=== PATIENT | female | born 1935 | race Caucasian/White ===

== ENCOUNTER 2016-07-20 05:56 | Day surgery (SDC) | payer MEDICARE, BC ==
[~2016-07-20] VITALS: Ht 152.4 cm; Wt 77.0 kg
[2016-07-20] VITALS (10 sets, daily range): BP systolic 112–128; BP diastolic 60–76; PULSE 87–111; RESP 16–20; TEMP 97.6–98.2; O2SAT 92–95
[~2016-07-20 05:56] MED LIST: ALBU6.7H INH; AZIT250T43 PO; CARD240C6 PO; CEFU1TAB43 PO; CYMB60CA PO; LISI-357 PO; METO25 PO; OMPR20CCR PO; OXYB5TAB33 PO; PRAV10 PO; Z.0.OXYGEN INH; Z.0.OXYGENDME NC
[2016-07-20] MEDS ORDERED: SODIUM CHLORID 0.9% 500 ML IV SCH (06:15)
[2016-07-20] MEDS ORDERED: LORazepam 1 MG TAB SL SCH (06:15)
[2016-07-20] MEDS ORDERED: LACTATED RINGER'S 1000 ML IV SCH (06:15)
[2016-07-20] MEDS ORDERED: SODIUM CHLORID 0.9% 500 ML INJ 500 ML IV SCH (06:15)
[2016-07-20] MEDS ORDERED: LEVOFLOXACIN 500 MG PREMIX INJ 100 ML IV SCH (06:30)
[2016-07-20] MEDS ORDERED: LYRI50CA PO (06:45)
[2016-07-20] MEDS ORDERED: CYCL5TAB PO (06:45)
[2016-07-20] MEDS ORDERED: DILT-48 PO (06:45)
[2016-07-20] MEDS ORDERED: DULO1CAP3 PO (06:45)
[2016-07-20] MEDS ORDERED: MELO7.5T4 PO (06:45)
[2016-07-20] MEDS ORDERED: OXYB5TAB PO (06:45)
[2016-07-20] MEDS ORDERED: ISOS30TA3 PO (06:45)
[2016-07-20] MEDS ORDERED: PRAV10TA PO (06:45)
[2016-07-20] MEDS ORDERED: CART240C PO (06:45)
[2016-07-20] MEDS ORDERED: APIX5TAB PO (06:45)
[2016-07-20] MEDS ORDERED: LISI-519 PO (06:45)
[2016-07-20 06:57] LABS: AUTOMATED NEUTROPHIL # 3.3 TH/MM3 (1.8-7.7); BASOPHIL # 0.1 TH/MM3 (0-0.2); BASOPHIL % 2.7 % (0.0-2.0); EOSINOPHIL # 0.3 TH/MM3 (0-0.4); EOSINOPHIL % 6.4 % (0.0-4.0); HEMATOCRIT 39.6 % (35.0-46.0); HEMO FLAGS DIFF FINAL; LYMPH % 20.9 % (9.0-44.0); LYMPHOCYTE # 1.1 TH/MM3 (1.0-4.8); MEAN CELL VOLUME 86.5 FL (80.0-100.0); MEAN CORPUSCULAR HEMOGLOBIN 29.4 PG (27.0-34.0); MONO % 9.6 % (0.0-8.0); NEUT % 60.4 % (16.0-70.0); PLATELET COUNT 239 TH/MM3 (150-450); RED BLOOD COUNT 4.58 MIL/MM3 (4.00-5.30); RED CELL DISTRIBUTION WIDTH 14.1 % (11.6-17.2); WHITE BLOOD COUNT 5.4 TH/MM3 (4.0-11.0)
[2016-07-20 07:15] LABS: APTT (PATIENT) 28.6 SEC (24.3-30.1); PROTHROMBIN TIME - PATIENT 11.2 SEC (9.8-11.6)
[2016-07-20] MEDS ORDERED: HEPARIN-D5W INJ 250 ML ONE (07:21)
[2016-07-20] MEDS ORDERED: ISOPROTERENOL HCL 1 MG/5 ML AMP ONE (07:21)
[2016-07-20] MEDS ORDERED: SODIUM CHLOR 0.9% 250 ML INJ 250 ML ONE (07:22)
[2016-07-20] MEDS ORDERED: HEPARIN SODIUM - IV 10,000 UNITS/10 ML VIAL ONE ×2 (07:22)
[2016-07-20 07:28] LABS: BICARBONATE 23.4 MEQ/L (21.0-32.0); POTASSIUM 3.5 MEQ/L (3.5-5.1)
[2016-07-20] MEDS ORDERED: fentaNYL CITRATE 250 MCG/5 ML AMP ONE (07:42)
[2016-07-20] MEDS ORDERED: FUROSEMIDE 40 MG/4 ML VIAL ONE (07:47)
[2016-07-20] MEDS ORDERED: PROTAMINE SULFATE 50 MG/5 ML VIAL ONE ×2 (07:48→11:16)
[2016-07-20] MEDS ORDERED: NEOSTIGMINE 3 MG/3 ML SYR IV ONE (11:00)
[2016-07-20] MEDS ORDERED: ONDANSETRON HCL 4 MG/2 ML VIAL IV PUSH ONE (11:00)
[2016-07-20] MEDS ORDERED: PROPOFOL 200 MG/20 ML AMP IV ONE (11:00)
[2016-07-20] MEDS ORDERED: BACITRACIN OINT 0.9 GM PKT TOP ONE (11:30)
[2016-07-20] MEDS ORDERED: SODIUM CHLOR 0.9% 250 ML INJ 250 ML IV PRN (11:30)
[2016-07-20] MEDS ORDERED: LIDOCAINE HCL 1% 50 ML VIAL INFIL PRN (11:30)
[2016-07-20] MEDS ORDERED: ONDANSETRON HCL 4 MG/2 ML VIAL IV PRN (11:30)
[2016-07-20] MEDS ORDERED: DO NOT ADM ANY ANTICOAGULANT DRUGS XX PRN (11:30)
[2016-07-20] MEDS ORDERED: oxyCODONE/ACETAMINOPHEN 5 MG/325 MG TAB PO PRN ×2 (11:30)
[2016-07-20] MEDS ORDERED: LORazepam 2 MG/ML VIAL IV PRN (11:30)
[2016-07-20] MEDS ORDERED: LISINOPRIL 5 MG TAB PO SCH (11:30)
[2016-07-20] MEDS ORDERED: ATROPINE SULFATE 1 MG/ML VIAL IV PRN (11:30)
[2016-07-20] MEDS ORDERED: DULoxetine HCl DR 60 MG CAP PO SCH (11:30)
[2016-07-20] MEDS ORDERED: METOCLOPRAMIDE HCL 10 MG/2 ML VIAL IV PRN (11:30)
--- NOTE | 2016-07-20 11:39 | ETE ---
Study Study Date:07/20/2016 STUDY CONCLUSIONS SUMMARY - Left ventricle: The cavity size was normal. Wall thickness was normal. Systolic function was normal. The estimated ejection fraction was in the range of 55% to 60%. Wall motion was normal; there were no regional wall motion abnormalities. - Aortic valve: No evidence of vegetation. - Mitral valve: No evidence of vegetation. - Left atrium: No evidence of thrombus in the atrial cavity or appendage. No evidence of thrombus in the atrial cavity or appendage. - Right atrium: No evidence of thrombus in the atrial cavity or appendage. - Atrial septum: No defect or patent foramen ovale was identified. Echo contrast study showed no yoduf-hu-[id number] atrial level shunt, at baseline or with provocation. - Tricuspid valve: No evidence of vegetation. Mild-moderate regurgitation. - Pulmonic valve: No evidence of vegetation. If LV function is below 40, please consider prescribing an ACEI or ARB or document rationale for non-use. PROCEDURE DATA Consent: The risks, benefits, and alternatives to the procedure were explained to the patient and informed consent was obtained. Procedure: Initial setup. The patient was brought to the laboratory in the fasting state. Intravenous access was obtained. Surface ECG leads and pulse oximetric signals were monitored. Sedation. Conscious sedation was administered by anesthesiology. Transesophageal echocardiography. Topical anesthesia was obtained using viscous lidocaine. A transesophageal probe was inserted by the attending demolition crane operator. Image quality was good. Study completion: All IVs inserted during the procedure were removed. The patient tolerated the procedure well. There were no complications. Transesophageal echocardiography. 2D, complete spectral Doppler, and color Doppler. CARDIAC ANATOMY LEFT VENTRICLE: The cavity size was normal. Wall thickness was normal. Systolic function was normal. The estimated ejection fraction was in the range of 55% to 60%. Wall motion was normal; there were no regional wall motion abnormalities. AORTIC VALVE: Trileaflet; mildly thickened, mildly calcified leaflets. Cusp separation was normal. No evidence of vegetation. Doppler: No significant regurgitation. Aorta: - There was no atheroma. There was no evidence for dissection. Aortic root: The aortic root was not dilated. Ascending aorta: The ascending aorta was normal in size. Aortic arch: The aortic arch was normal in size. Descending aorta: The descending aorta was normal in size. MITRAL VALVE: Structurally normal valve. Leaflet separation was normal. No evidence of vegetation. Doppler: Trace regurgitation. LEFT ATRIUM: The atrium was normal in size. No evidence of thrombus in the atrial cavity or appendage. No evidence of thrombus in the atrial cavity or appendage. The appendage was morphologically a left appendage, multilobulated, and of normal size. Emptying velocity was normal. ATRIAL SEPTUM: No defect or patent foramen ovale was identified. Echo contrast study showed no tfajy-ic-pfat atrial level shunt, at baseline or with provocation. RIGHT VENTRICLE: The cavity size was normal. Wall thickness was normal. Systolic function was normal. PULMONIC VALVE: Structurally normal valve. No evidence of vegetation. TRICUSPID VALVE: Structurally normal valve. Leaflet separation was normal. No evidence of vegetation. Doppler: Mild-moderate regurgitation. PULMONARY ARTERY: The main pulmonary artery was normal-sized. RIGHT ATRIUM: The atrium was normal in size. No evidence of thrombus in the atrial cavity or appendage. The appendage was morphologically a right appendage. PERICARDIUM: There was no pericardial effusion. Prepared and signed by Purvi Rivero [id number]
[2016-07-20] MEDS ORDERED: PILL SPLITTER OTHER PRN (12:00)
--- NOTE | 2016-07-20 12:04 | MA ---
cc: FLORECITA DIANA HANSCY M.D. DATE: 07/20/2016 PROCEDURE Electrophysiology study, CS cannulation, 3-D mapping, transseptal approach, right and left heart catheterization, intracardiac echo, radiofrequency ablation of atrial fibrillation, pulmonary vein isolation, posterior ablation, roof line creation, floor line creation, mitral valve isolation, mitral line creation, anterior wall ablation and cardioversion. That was a very complex case. INDICATION Mrs. Chastity Valencia is an 81-year-old female with atrial fibrillation, very difficult to control, symptomatic, referred for electrophysiology study and ablation. She is on anticoagulation. The risks, the nature and the benefit of the procedure were clearly stated to her. The risks include esophageal perforation, aspiration, need for endotracheal intubation and even . The patient understood and agreed to proceed. DETAILS OF PROCEDURE As written informed consent was obtained prior to transesophageal echo, the patient was kept on the table where she was prepped and draped in the usual sterile fashion. Conscious sedation was initiated and maintained throughout the procedure by the anesthesiologist. Once sedation was verified, the right and left inguinal area was anesthetized with 2% Xylocaine. Using modified Seldinger technique, the left femoral vein was cannulated on three occasions and three guidewires were advanced. Over the wires one 6, one 7, and one 10 Hemaquet was advanced. I did attempt to cannulate the left femoral artery, but the pulse in the area was poor. I decided to cannulate the right femoral artery. Over the wire the 4-Stateless Hemaquet was advanced. Then the right femoral vein was cannulated on one occasion and one guidewire was advanced. Over the wire an 8-Stateless Hemaquet was advanced. Then under fluoroscopic guidance through the 6 and 7 Stateless Hemaquets, two 5-Stateless Rossana curved quadripolar electrophysiology catheters were advanced and positioned on the His, upper right atrium, coronary sinus and right ventricular apex. Basic interval was measured. The patient was in atrial fibrillation. Through the 10-Stateless Hemaquet, a Cordis-Hare AcuNav intracardiac echo catheter was advanced and placed at the right atrium. Multiple views were obtained. There was no pericardial effusion. There was left atrial enlargement. Atrial septum was seen. Pulmonary vein was visualized. Aortic root was seen. Then the 8-Stateless Hemaquet in the right femoral vein was exchanged for an Agilis transseptal sheath that was placed all the way to the superior vena cava. Through the sheath a [place] needle was advanced. Then the sheath, the needle and the dilator were pulled back progressively until the fossa was engaged. Once engaged, the needle was advanced. RF was delivered for two seconds. I was able to cross into the left atrium. Once the needle crossed, the dilator was advanced. Once the dilator crossed, the sheath was advanced. Once the sheath crossed the dilator and the needle were removed. I did flood the system. Fluid movement was seen in the left atrium that indicated the sheath was in good position. The patient already received 8000 units of heparin. The goal was to keep an ACT around 350 during the ablation. Then through the sheath a [place]. Mario 20-post circumferential catheter was advanced. Using the [employer] Mapping System a three-dimensional configuration of the left atrium was obtained. Lazcano were taken at the left superior and inferior vein, right superior and inferior vein, mitral valve and appendage. Then the circumferential catheter was replaced by a St. Mario TactiCath 3.5 mm irrigated-tip mapping and radiofrequency ablation catheter. An esophageal probe was placed for temperature monitoring during ablation. Any increase above 0.5 degrees Celsius from baseline I moved to a different part of the atrium. First I did isolate the left superior and inferior vein. I made a soboba around both veins. Part of the posterior was ablated. Then the mitral valve was ablated. Then the floor line was created. Then I did ablate around the left atrial appendage. Tachyarrhythmia was getting better organized. Then the roof line was created. Then I did isolate both the right and left superior. Then I did re-map the atrium. There was no significant signal except in the posterior wall. Some part of the posterior was ablated. Then I did proceed with cardioversion. 200 sync biphasic joules were delivered that converted the patient into sinus rhythm. At that point, I did pace from the vein. There was no conduction to the atrium. Pacing from the coronary sinus showed no conduction to the veins. Then Isuprel infusion was initiated at 10 mcg. No tachyarrhythmia was induced. At that point the procedure was complete. All catheters were removed. The intracardiac echo showed no pericardial effusion. Basic interval was measured. The transseptal sheath was replaced by a 9-Stateless Hemaquet. The patient is going to be transferred to the recovery room. That was a very complex case. No incident report. The patient tolerated the procedure. Blood loss minimal. FINDINGS 1. Electrocardiogram: At baseline the patient was in atrial fibrillation. Post procedure the patient was in sinus rhythm. 2. Basic interval: Base cycle length was around 780. Post ablation it was close to 1100. AH was at 90 and HV was around 52 milliseconds. 3. Tachyarrhythmia: Atrial fibrillation was mapped and ablated. Atrial tachycardia was ablated. Ablation was successful. CONCLUSIONS Successful electrophysiology study, mapping and radiofrequency ablation of atrial fibrillation, pulmonary vein isolation, posterior ablation, mitral line creation, mitral valve isolation, roof line creation, floor line creation, left atrial tachycardia ablation and cardioversion. COMMENT/RECOMMENDATION The patient is going to be transferred to the recovery room. She will be observed. Medication will be modified. When stable the patient is going to be discharged home. There was a relatively poor signal in the left atrium. Purvi Rivero MD HS/HETAL /11:27 AM 11:43 AM
[2016-07-20] MEDS: AMIODARONE 200 MG TAB PO SCH ×2 (13:00→21:51)
[2016-07-20] MEDS ORDERED: AMIODARONE INJ 300 MG in DEXTROSE 5% IN WATER 100ML INJ 94 ML IV ONE ×2 (13:30)
[2016-07-20] MEDS ORDERED: AMIODARONE 150 MG/D5W 97 ML BOLUS 60 MINUTES IV ONE ×2 (13:30)
[2016-07-20] MEDS: AMIODARONE 450 MG/D5W (EXCEL) 241 ML IV SCH ×4 (15:02→23:48)
[2016-07-20] MEDS: CYCLOBENZAPRINE HCL 10 MG TAB PO SCH (18:00)
[2016-07-20] MEDS ORDERED: PRAVASTATIN SOD 10 MG TAB PO SCH (21:00)
[2016-07-20] MEDS: APIXABAN 5 MG TABLET PO SCH (21:51)
--- NOTE | 2016-07-20 23:31 | EKG ---
Date Performed: 07/20/2016 Time Performed: 11:44:50 PTAGE: 81 years EKG: Sinus rhythm WITH FIRST DEGREE AV BLOCK WITH FREQUENT SUPRAVENTRICULAR PREMATURE COMPLEXES ABNORMAL ECG PREVIOUS TRACING : 07/20/2016 07.17 DOCTOR: Purvi Rivero Interpretating Date/Time 07/20/2016 23:31:12
--- NOTE | 2016-07-20 23:38 | EKG ---
Date Performed: 07/20/2016 Time Performed: 07:17:58 PTAGE: 81 years EKG: Atrial fibrillation Leftward axis Anterolateral ST-T changes may be due to myocardial ische christin Abnormal ECG PREVIOUS TRACING : 06/23/2014 21.51 DOCTOR: Purvi Rivero Interpretating Date/Time 07/20/2016 23:37:05
[2016-07-21] VITALS (13 sets, daily range): BP systolic 120–158; BP diastolic 62–79; PULSE 94–111; RESP 16–18; TEMP 97.4–97.9; O2SAT 92–96
[2016-07-21] MEDS: AMIODARONE 200 MG TAB PO SCH (08:01)
[2016-07-21] MEDS: APIXABAN 5 MG TABLET PO SCH (08:02)
[2016-07-21] MEDS: CYCLOBENZAPRINE HCL 10 MG TAB PO SCH (08:03)
[2016-07-21 08:37] LABS: APTT (PATIENT) 27.8 SEC (24.3-30.1); INTERNATIONAL NORMALIZED RATIO 1.1 RATIO; PROTHROMBIN TIME - PATIENT 11.7 SEC (9.8-11.6)
[2016-07-21] MEDS ORDERED: AMIO200T PO ×2 (08:55)
[2016-07-21] MEDS ORDERED: MELOXICAM 7.5 MG TAB PO SCH (09:00)
[2016-07-21] MEDS ORDERED: ISOSORBIDE MONONITRATE 30 MG TAB PO SCH (09:00)
[2016-07-21] MEDS ORDERED: PREGABALIN 25 MG CAP PO SCH (09:00)
[2016-07-21] MEDS ORDERED: TOLTERODINE TARTRATE 2 MG CAP LA PO SCH (09:00)
--- NOTE | 2016-07-21 09:02 | PD.CARD.PN ---
Subjective Subjective Remarks Feels good. Objective Medications Current Medications Medications (Trade) Dose Ordered Sig/Angeli Route Start Time Stop Time Status Last Admin (NS 500 ml Inj) 500 ml @ 30 mls/hr [id number] IV 07/20/16 06:15 (Percocet 5-325 Mg) 1 tab Q4H PRN PO 07/20/16 11:30 (Percocet 5-325 Mg) 2 tab Q4H PRN PO 07/20/16 11:30 (Ativan Inj) 0.5 mg UNSCH PRN IV 07/20/16 11:30 07/21/16 11:29 Atropine Sulfate 0.5 mg 0.5 mg UNSCH PRN IV 07/20/16 11:30 (NS 250 ml Inj) 250 ml @ 500 mls/hr ONCE PRN IV 07/20/16 11:30 07/21/16 11:29 (Reglan Inj) 10 mg Q4H PRN IV 07/20/16 11:30 (Zofran Inj) 4 mg Q4H PRN IV 07/20/16 11:30 (Xylocaine 1% Inj (50 ml)) 10 ml UNSCH PRN INFIL 07/20/16 11:30 07/21/16 11:29 (Eliquis) 5 mg BID PO 07/20/16 21:00 07/21/16 08:02 (Flexeril) 5 mg TID PO 07/20/16 13:00 07/21/16 08:03 (Cymbalta Dr) 60 mg DAILY PO 07/20/16 11:30 07/21/16 08:03 (Imdur) 30 mg DAILY PO 07/21/16 09:00 07/21/16 08:02 (Prinivil) 5 mg DAILY PO 07/20/16 11:30 07/21/16 08:03 (Mobic) 7.5 mg DAILY PO 07/21/16 09:00 07/21/16 08:02 (Pravachol) 10 mg HS PO 07/20/16 21:00 07/20/16 21:51 (Lyrica) 50 mg DAILY PO 07/21/16 09:00 07/21/16 08:02 (Detrol La) 2 mg DAILY PO 07/21/16 09:00 07/21/16 08:01 (Cordarone) 400 mg BID PO 07/20/16 11:30 07/24/16 21:01 07/21/16 08:01 Miscellaneous Information ALL NURSING DEPARTME... UNSCH PRN XX 07/20/16 11:30 07/21/16 11:29 (Cordarone) 200 mg DAILY PO 07/25/16 09:00 Miscellaneous 1 ea 1 ea UNSCH PRN OTHER 07/20/16 12:00 (Cordarone Inj/ D5W ([place]) Inj) 250 ml @ 0 mls/hr CONTINUOUS IV 07/20/16 13:30 07/20/16 23:48 Vital Signs / I&O Vital Signs Date Time Temp Pulse Resp B/P Pulse Ox O2 Delivery O2 Flow Rate FiO2 07/21/16 08:00 97.4 107 16 156/79 94 07/21/16 07:34 Room Air 07/21/16 06:00 103 07/21/16 05:00 95 07/21/16 04:00 Room Air 07/21/16 04:00 97.8 106 18 158/78 96 07/21/16 04:00 106 07/21/16 03:00 105 07/21/16 02:00 106 07/21/16 01:00 111 07/21/16 00:00 97.9 98 18 120/62 92 07/21/16 00:00 94 07/21/16 00:00 Room Air 07/20/16 23:00 105 07/20/16 22:00 108 07/20/16 21:00 109 07/20/16 20:00 110 07/20/16 20:00 Room Air 07/20/16 20:00 98.1 110 20 116/76 92 07/20/16 19:00 108 07/20/16 18:00 107 07/20/16 17:00 100 07/20/16 16:00 100 07/20/16 16:00 98.2 111 16 112/60 93 07/20/16 15:48 106 07/20/16 15:25 97.8 105 16 102/65 94 Room Air 07/20/16 15:00 107 16 101/67 93 Room Air 07/20/16 14:45 108 15 108/65 92 Room Air 07/20/16 14:35 97.8 110 15 110/66 98 Nasal Cannula 2 07/20/16 14:15 111 14 108/67 96 07/20/16 14:00 116 14 115/69 97 07/20/16 13:45 118 16 105/71 95 07/20/16 13:30 116 16 110/70 96 07/20/16 13:15 117 20 119/68 96 07/20/16 13:00 117 16 120/67 95 07/20/16 12:45 119 13 120/69 96 07/20/16 12:30 85 17 119/62 95 07/20/16 12:15 84 17 113/67 95 Nasal Cannula 2 07/20/16 12:00 87 14 121/65 95 07/20/16 11:45 69 12 119/69 95 07/20/16 11:30 109 12 120/62 94 07/20/16 11:28 97.9 111 12 109/48 94 Nasal Cannula 2 I/O 07/20/16 07/20/16 07/20/16 07/21/16 07/21/16 07/21/16 07:00 15:00 23:00 07:00 15:00 23:00 Intake Total 900 ml 50 ml 586 ml Output Total 1650 ml 400 ml Balance -750 ml -350 ml 586 ml Intake Oral 250 ml IV Total 50 ml 336 ml Other 900 ml Output Urine Total 1250 ml 400 ml Other 400 ml # Voids 2 Physical Exam GENERAL: Well-nourished, well-developed patient. SKIN: Warm and dry. Groin sites soft, benign HEAD: Normocephalic. EYES: No scleral icterus. No injection or drainage. NECK: Supple, trachea midline. No JVD or lymphadenopathy. CARDIOVASCULAR: Regular rate and rhythm without murmurs, gallops, or rubs. RESPIRATORY: Breath sounds equal bilaterally. No accessory muscle use. GASTROINTESTINAL: Abdomen soft, non-tender, nondistended. EXTREMITIES: No cyanosis, or edema. NEUROLOGICAL: Awake, alert, and oriented x 3. Non-focal. Laboratory Laboratory Tests Test 07/21/16 08:05 Prothrombin Time 11.7 SEC Prothromb Time International 1.1 RATIO Ratio Activated Partial 27.8 SEC Thromboplast Time Assessment and Plan Problem List: (1) Atrial fibrillation Assessment and Plan: Stable s/p afib ablation. DC home with amiodarone. FU with Dr. Rivero in 3 weeks, per my D/W him. Problem Qualifiers (1) Atrial fibrillation: Qualified Code: I48.0 - Paroxysmal atrial fibrillation Angélica Martinez Jul 21, 2016 09:02
--- NOTE | 2016-07-21 10:22 | EKG ---
Date Performed: 07/21/2016 Time Performed: 06:17:40 PTAGE: 81 years EKG: probable Sinus rhythm with first degree AV block Left axis deviation Extensive ST-T changes are nonspecific Abnormal ECG PREVIOUS TRACING : 07/20/2016 13.04 DOCTOR: Luis Smyth Interpretating Date/Time 07/21/2016 10:22:40
--- NOTE | 2016-07-21 12:01 | EKG ---
Date Performed: 07/20/2016 Time Performed: 13:04:56 PTAGE: 81 years EKG: ATRIAL FLUTTER/TACHYCARDIA WITH RAPID VENTRICULAR RESPONSE BORDERLINE LEFT AXIS DEVIATION M ODERATE ST DEPRESSION ABNORMAL QRS-T ANGLE ABNORMAL ECG PREVIOUS TRACING : 07/20/2016 11.44 DOCTOR: Luis Smyth Interpretating Date/Time 07/21/2016 11:59:21
[2016-07-25] MEDS ORDERED: AMIODARONE 200 MG TAB PO SCH (09:00)
== END 2016-07-21 11:37 | disposition home or self-care (01) ==
LOC: HDOC 05:56 → HDIC 05:57 → HCIS 16:11 → HDOC 07-21 11:37
PROVIDERS: ATTEND Internal Medicine Interventional Cardiology
DX: I48.91 Unspecified atrial fibrillation (principal); I47.1 Supraventricular tachycardia; I11.9 Hypertensive heart disease without heart failure; E66.9 Obesity, unspecified; Z68.33 Body mass index [BMI] 33.0-33.9, adult; Z79.01 Long term (current) use of anticoagulants
CPT/HCPCS: 00537; 80048; 85002; 85025; 85610; 85730; 86850; 86900; 86901; 92960; 93005; 93312; 93320; 93325; 93613; 93623; 93656; 93662; C1730; C1731; C1732; C1759; C1766; C2630; J0282; J1644; J1940; J1956; J2405; J2710; J2720; J3010; J7050; J7060

== ENCOUNTER 2016-09-07 06:59 | Day surgery (SDC) | payer MEDICARE, BC ==
[~2016-09-07 06:59] MED LIST changes: -ALBU6.7H INH; +AMIO200T PO; +APIX5TAB PO; -AZIT250T43 PO; -CARD240C6 PO; -CEFU1TAB43 PO; +CYCL5TAB PO; -CYMB60CA PO; +DULO1CAP3 PO; +ISOS30TA3 PO; -LISI-357 PO; +LISI-519 PO; +LYRI50CA PO; +MELO7.5T4 PO; -METO25 PO; -OMPR20CCR PO; +OXYB5TAB PO; -OXYB5TAB33 PO; -PRAV10 PO; +PRAV10TA PO; -Z.0.OXYGEN INH; -Z.0.OXYGENDME NC
[2016-09-07] MEDS ORDERED: DILT-64 PO (07:46)
[2016-09-07] MEDS ORDERED: OMEP20TA PO (07:46)
[2016-09-07] MEDS ORDERED: ALBU6.7H INH (07:46)
[2016-09-07] MEDS ORDERED: INSULIN HUMAN REGULAR 1,000 UNITS/10 ML VIAL SQ PRN (08:15)
[2016-09-07] MEDS ORDERED: SODIUM CHLORID 0.9% 500 ML IV SCH (08:15)
[2016-09-07] MEDS ORDERED: METOPROLOL TARTRATE 25 MG TAB PO PRN (08:15)
[2016-09-07] MEDS ORDERED: LACTATED RINGER'S 1000 ML IV SCH (08:15)
[2016-09-07] MEDS ORDERED: PROPOFOL 200 MG/20 ML AMP IV ONE (11:07)
--- NOTE | 2016-09-08 06:53 | EKG ---
Date Performed: 09/07/2016 Time Performed: 07:25:20 PTAGE: 81 years EKG: Atrial fibrillation. Left axis deviation Poor R wave progression Inferior/lateral ST-T bauer ges are nonspecific Abnormal ECG PREVIOUS TRACING : 07/21/2016 06.17 DOCTOR: Robert Zimmerman Interpretating Date/Time 09/08/2016 06:52:25
--- NOTE | 2016-09-08 06:54 | EKG ---
Date Performed: 09/07/2016 Time Performed: 09:20:14 PTAGE: 81 years EKG: Sinus rhythm with 1st degree A-V block. Prolonged QT interval Leftward axis Poor R wave progression Lateral T wav e changes are nonspecific Compared to the previous tracing, patient is now in sinus rhythm Abnormal ECG PREVIOUS TRACING : 09/07/2016 07.25 DOCTOR: Robert Zimmerman Interpretating Date/Time 09/08/2016 06:52:54
--- NOTE | 2016-10-12 16:49 | MA ---
cc: MONTSE GANT M.D. Cardioversion DATE 09/07/2016 INDICATION Ms. Peraza is an 81-year-old female, atrial fibrillation, previous ablation, not a good candidate for redo ablation because of very enlarged left atrium, will undergo cardioversion. The risks, the nature and the benefit of the procedure are clearly stated to her. The risks include cardiac arrest need for endotracheal intubation, need for CPR and even . The patient understood and agreed to proceed. PROCEDURE After written informed consent was obtained, the patient was evaluated by anesthesiologist. Once sedation verified, anterolateral pad was placed. A 200 sync biphasic joule was delivered that converted the patient into sinus rhythm. At that point the procedure was complete. Patient fully recuperated from the anesthesia. No incident to report. Electrocardiogram shows sinus rhythm. CONCLUSION Successful cardioversion. COMMENT AND RECOMMENDATIONS The patient going to be observed and discharged home later today. If back again in atrial fibrillation, then Tikosyn administration will be considered. MD JENNIFER German/ANN /2:26 PM /4:44 PM
== END 2016-09-07 10:22 | disposition home or self-care (01) ==
LOC: HBDO 06:59 → HDIC 07:00 → HDOC 10:22
PROVIDERS: ATTEND Internal Medicine Interventional Cardiology
DX: I48.91 Unspecified atrial fibrillation (principal)
CPT/HCPCS: 92960; 93005

== ENCOUNTER 2016-09-15 16:51 | Observation (INO) | payer MEDICARE, BC ==
[~2016-09-15] VITALS: Ht 152.4 cm; Wt 77.1 kg
[~2016-09-15 16:51] MED LIST changes: +ALBU6.7H INH; -CYCL5TAB PO; +DILT-64 PO; -LYRI50CA PO; -MELO7.5T4 PO; +OMEP20TA PO
[2016-09-15 16:53] VITALS: BP 120/64; PULSE 109; RESP 20; TEMP 97.3; O2SAT 92
--- NOTE | 2016-09-15 17:59 | PD ---
HPI Chief Complaint: Respiratory Symptoms Time Seen by Provider: 17:58 Travel History International Travel<30 days: No Contact w/Intl Traveler<30days: No Traveled to known affect area: No History of Present Illness HPI 81 year-old female history of A. fib, COPD, GERD, CKD3 presents to the emergency department for evaluation at the urging of her microsoft crm developer Dr. Rivero. Patient states approximately one week ago she had a second procedure done for her A. fib. She states that it was a laser procedure. She states since that procedure she has developed worsening shortness of breath. She states she is unable to take many steps without becoming significantly short of breath. She feels as though her heart is racing and there is some mild pain associated with that. The pain does not radiate anywhere. No nausea or vomiting. No recent illnesses, fever, or chills. She has no other symptoms to report at this time. PFSH Past Medical History Hx Anticoagulant Therapy: Yes Arthritis: Yes (RA) Asthma: No Atrial Fibrillation: Yes Blood Disorders: No Depression: Yes Heart Rhythm Problems: Yes (A-FIB) Cancer: No Cardiovascular Problems: Yes (AFIB) High Cholesterol: Yes Chemotherapy: No Chest Pain: Yes Congestive Heart Failure: No COPD: Yes Diabetes: No Diminished Hearing: No Endocrine: No Genitourinary: Yes (OVERFLOW) Hypertension: Yes Immune Disorder: No Musculoskeletal: Yes Neurologic: No Psychiatric: No Reproductive: Yes Respiratory: Yes Radiation Therapy: No Sleep Apnea: No Thyroid Disease: No ?: Not : 6 Para: 3 Miscarriage: 3 Past Surgical History Abdominal Surgery: Yes (APPENDECTOMY) Appendectomy: Yes Eye Surgery: Yes (CATARACT) Gynecologic Surgery: Yes (HYSTERECTOMY) Hysterectomy: Yes Oral Surgery: Yes (TONSILLECTOMY AND TEETH EXTRACTIONS) Pacemaker: No Tonsillectomy: Yes Other Surgery: Yes (SMALL CYSTS) Social History Alcohol Use: No Tobacco Use: No (07/19 PPD QUIT 1997) Substance Use: No Allergies-Medications (Allergen,Severity, Reaction): Coded Allergies: Shellfish (Verified Allergy, Severe, Anaphylaxis, 07/20/16) Reported Meds & Prescriptions Reported Meds & Active Scripts Active Amiodarone (Amiodarone HCl) 200 Mg Tab 200 Mg PO DAILY Reported Proventil Hfa 6.7 GM Inh (Albuterol Sulfate) 90 Mcg/Act Aer 2 Puff INH Q4-6H PRN Omeprazole 20 Mg Tab 20 Mg PO DAILY Diltiazem CD 24 HR 240 Mg Caper 240 Mg PO DAILY Pravastatin 10 Mg Tab 10 Mg PO DAILY Oxybutynin ER 24 HR (Oxybutynin Chloride) 5 Mg Tab 5 Mg PO DAILY Lisinopril 5 Mg Tab 5 Mg PO DAILY Isosorbide Mononitrate ER (Isosorbide Mononitrate) 30 Mg Rj 30 Mg PO DAILY Eliquis (Apixaban) 5 Mg Tab 5 Mg PO BID Duloxetine DR (Duloxetine HCl) 60 Mg Capdr 60 Mg PO DAILY Review of Systems Except as stated in HPI: all other systems reviewed are Neg Physical Exam Narrative GENERAL: Well-nourished female patient, ambulatory no acute distress SKIN: Warm and dry. HEAD: Atraumatic. Normocephalic. EYES: Pupils equal and round. No scleral icterus. No injection or drainage. ENT: No nasal bleeding or discharge. Mucous membranes pink and moist. NECK: Trachea midline. No JVD. CARDIOVASCULAR: Elevated rate and rhythm. No murmur appreciated. RESPIRATORY: No accessory muscle use. Diminished to auscultation. Breath sounds equal bilaterally. GASTROINTESTINAL: Abdomen soft, non-tender, nondistended. Hepatic and splenic margins not palpable. MUSCULOSKELETAL: No obvious deformities. No clubbing. No cyanosis. 2+ lower extremity edema. NEUROLOGICAL: Awake and alert. No obvious cranial nerve deficits. Motor grossly within normal limits. Normal speech. PSYCHIATRIC: Appropriate mood and affect; insight and judgment normal. Data Data Last Documented VS Vital Signs Date Time Temp Pulse Resp B/P Pulse Ox O2 Delivery O2 Flow Rate FiO2 09/15/16 16:53 97.3 109 20 120/64 92 Room Air Orders Electrocardiogram (09/15/16 17:58) Basic Metabolic Panel (Bmp) (09/15/16 17:58) B-Type Natriuretic Peptide (09/15/16 17:58) Ckmb (Isoenzyme) Profile (09/15/16 17:58) Complete Blood Count With Diff (09/15/16 17:58) D-Dimer (09/15/16 17:58) Magnesium (Mg) (09/15/16 17:58) Prothrombin Time / Inr (Pt) (09/15/16 17:58) Act Partial Throm Time (Ptt) (09/15/16 17:58) Troponin I (09/15/16 17:58) Chest, Single Ap (09/15/16 17:58) Labs Laboratory Tests Test 09/15/16 18:30 White Blood Count 6.6 TH/MM3 Red Blood Count 4.53 MIL/MM3 Hemoglobin 13.5 GM/DL Hematocrit 40.5 % Mean Corpuscular Volume 89.5 FL Mean Corpuscular Hemoglobin 29.8 PG Mean Corpuscular Hemoglobin 33.3 % Concent Red Cell Distribution Width 14.0 % Platelet Count 224 TH/MM3 Mean Platelet Volume 8.0 FL Neutrophils (%) (Auto) 69.3 % Lymphocytes (%) (Auto) 15.5 % Monocytes (%) (Auto) 9.3 % Eosinophils (%) (Auto) 4.4 % Basophils (%) (Auto) 1.5 % Neutrophils # (Auto) 4.6 TH/MM3 Lymphocytes # (Auto) 1.0 TH/MM3 Monocytes # (Auto) 0.6 TH/MM3 Eosinophils # (Auto) 0.3 TH/MM3 Basophils # (Auto) 0.1 TH/MM3 CBC Comment DIFF FINAL Differential Comment Prothrombin Time 11.5 SEC Prothromb Time International 1.0 RATIO Ratio Activated Partial 28.9 SEC Thromboplast Time D-Dimer Quantitative (PE/DVT) 0.47 MG/L FEU Sodium Level 138 MEQ/L Potassium Level 3.6 MEQ/L Chloride Level 105 MEQ/L Carbon Dioxide Level 23.0 MEQ/L Anion Gap 10 MEQ/L Blood Urea Nitrogen 30 MG/DL Creatinine 1.18 MG/DL Estimat Glomerular Filtration 44 ML/MIN Rate Random Glucose 98 MG/DL Calcium Level 8.8 MG/DL Magnesium Level 2.2 MG/DL Total Creatine Kinase 37 U/L Troponin I 0.08 NG/ML B-Type Natriuretic Peptide 96 PG/ML [facility] Medical Decision Making Medical Screen Exam Complete: Yes Emergency Medical Condition: Yes Medical Record Reviewed: Yes Differential Diagnosis A. fib with RVR versus ACS versus CHF versus pneumonia Narrative Course 81 year-old female presents to emergency department for evaluation. Workup is initiated in triage. Once a medical bed becomes available, patient will be transferred and care assumed by that provider. 0 troponin is elevated 0.08. I have requested a stat medical bed Condition: Stable Linda Gomez Sep 15, 2016 17:58
[2016-09-15 18:51] LABS: AUTOMATED NEUTROPHIL # 4.6 TH/MM3 (1.8-7.7); BASOPHIL # 0.1 TH/MM3 (0-0.2); BASOPHIL % 1.5 % (0.0-2.0); EOSINOPHIL # 0.3 TH/MM3 (0-0.4); EOSINOPHIL % 4.4 % (0.0-4.0); HEMATOCRIT 40.5 % (35.0-46.0); HEMO FLAGS DIFF FINAL; LYMPH % 15.5 % (9.0-44.0); MEAN CELL VOLUME 89.5 FL (80.0-100.0); MEAN CORPUSCULAR HEMOGLOBIN 29.8 PG (27.0-34.0); MEAN CORPUSCULAR HGB CONC 33.3 % (32.0-36.0); MONO % 9.3 % (0.0-8.0); NEUT % 69.3 % (16.0-70.0); PLATELET COUNT 224 TH/MM3 (150-450); RED BLOOD COUNT 4.53 MIL/MM3 (4.00-5.30); WHITE BLOOD COUNT 6.6 TH/MM3 (4.0-11.0)
[2016-09-15 19:08] LABS: MAGNESIUM 2.2 MG/DL (1.5-2.5); POTASSIUM 3.6 MEQ/L (3.5-5.1)
[2016-09-15 19:17] LABS: APTT (PATIENT) 28.9 SEC (24.3-30.1); PROTHROMBIN TIME - PATIENT 11.5 SEC (9.8-11.6)
--- NOTE | 2016-09-15 19:21 | RADRPT ---
EXAM DATE/TIME: 09/15/2016 18:26 [facility] COMPARISON: CHEST SINGLE AP, June 21, 2014, 5:33. INDICATIONS : Chest pain. MEDICAL HISTORY : Hypertension. Chronic obstructive pulmonary disease. Atrial Fibrillation. SURGICAL HISTORY : None. ENCOUNTER: Initial ACUITY: 3 days PAIN SCORE: 4/10 LOCATION: chest FINDINGS: A single view of the chest demonstrates improved lung aeration. Interstitial prominence is evident in the upper lobes especially on the right. There is no evidence of consolidating airspace disease. Heart and mediastinal structures are stable. CONCLUSION: Interstitial lung disease. No evidence of consolidating airspace disease. Improved aeration compared to prior study. Liam Trimble MD on September 15, 2016 at 19:18 Board Certified Radiologist. This report was verified electronically.
[2016-09-15 20:25] VITALS: BP 126/77; PULSE 98; RESP 18; O2SAT 97
[2016-09-15] MEDS ORDERED: CYMB60CA PO (20:34)
[2016-09-15] MEDS ORDERED: LYRI50CA PO (20:54)
[2016-09-15] MEDS ORDERED: IOHEXOL 350 MG/ML 10 ML VIAL (for RAD DIAG) IV ONE (22:06)
--- NOTE | 2016-09-15 22:42 | RADRPT ---
EXAM DATE/TIME: 09/15/2016 22:02 [place] COMPARISON: No previous studies available for comparison. INDICATIONS : Shortness of breath with leg weakness. IV CONTRAST: 80 cc Omnipaque 350 (iohexol) IV RADIATION DOSE: 23.87 CTDIvol (mGy) MEDICAL HISTORY : Cardiovascular disease. Hypertension. SURGICAL HISTORY : Appendectomy. Hysterectomy. ENCOUNTER: Initial ACUITY: 3 days PAIN SCALE: 0/10 LOCATION: chest abdomen TECHNIQUE: Volumetric scanning was performed using a multi-row detector CT scanner. The data was post processed with a variety of visualization algorithms including full volume maximum intensity projection, multi -planar sliding thin slab reformation, curved planar reformation, and surface rendering techniques. Using automated exposure control and adjustment of the mA and/or kV according to patient size, radiat ion dose was kept as low as reasonably achievable to obtain optimal diagnostic quality images. 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 There is no evidence of suspicious mass or consolidation. MEDIASTINUM: No abnormally enlarged lymph nodes by CT criteria. No axillary or hilar abnormalities are identified. ABDOMEN: The liver and spleen are free of focal defects. The gallbladder and pancreas demonstrate no abnormali ty. The adrenal glands are normal. The kidneys demonstrate no evidence of solid renal mass or hydrone phrosis. No free fluid or abdominal masses are identified. No para-aortic adenopathy is seen. PELVIS: No evidence of free fluid or pelvic mass. No abnormally enlarged inguinal or retroperitoneal lymph no tatyana are present. Uterus has been removed. Small right posterolateral bladder diverticulum is noted. THORACIC AORTA: Moderate calcified plaque is seen throughout the aorta. The thoracic aortic root is normal with ariella l branching of the great vessels. There is no evidence of aneurysm or dissection. ABDOMINAL AORTA: Mild/moderate plaque is present throughout the abdominal aorta. Focal calcified plaque is seen at the aortic branches. The aorta is normal in caliber without aneurysm or dissection. The renal arteries are patent bilaterally. The proximal celiac and superior mesenteric arteries are patent. PELVIC VESSELS: Eccentric calcified plaque is seen in the common iliac arteries. The internal iliac and external floridalma c vessels are patent without aneurysm or stenosis. CONCLUSION: Calcific atherosclerotic vascular disease without evidence of aneurysmal enlargement, dissection or s ignificant branch occlusive disease. Chronic interstitial lung disease with possible superimposed pneumonitis in the upper lobes. Status post hysterectomy. No significant soft tissue abnormalities in the abdomen or pelvis. Liam Trimble MD on September 15, 2016 at 22:34 Board Certified Radiologist. This report was verified electronically.
[2016-09-16] VITALS (8 sets, daily range): BP systolic 97–150; BP diastolic 51–74; PULSE 69–97; RESP 15–20; TEMP 96.7–98.1; O2SAT 95–97
--- NOTE | 2016-09-16 00:57 | PD ---
Physical Exam Narrative Patient is a 81 year old female who comes in complaining of SOB and leg weakness. She has history of afib and had a procedure done Sameer. She says since then she has been having these symptoms. She says the SOB seems to be worse with exertion. She denies any chest pain. Patient originally seen in triage where work-up was begun. Exam shows lungs CTA. Heart is irregular, but rate controlled. Neuro exam shows equal strength in both the arms and the legs. Data Data Last Documented VS Vital Signs Date Time Temp Pulse Resp B/P Pulse Ox O2 Delivery O2 Flow Rate FiO2 09/15/16 20:25 98 18 126/77 97 Room Air 09/15/16 16:53 97.3 Orders Electrocardiogram (09/15/16 17:58) Basic Metabolic Panel (Bmp) (09/15/16 17:58) B-Type Natriuretic Peptide (09/15/16 17:58) Ckmb (Isoenzyme) Profile (09/15/16 17:58) Complete Blood Count With Diff (09/15/16 17:58) D-Dimer (09/15/16 17:58) Magnesium (Mg) (09/15/16 17:58) Prothrombin Time / Inr (Pt) (09/15/16 17:58) Act Partial Throm Time (Ptt) (09/15/16 17:58) Troponin I (09/15/16 17:58) Chest, Single Ap (09/15/16 17:58) Cta Thor Abd Aorta W Iv C W3d (09/15/16 20:29) Thyroid Stimulating Hormone (09/15/16 20:29) Iohexol 350 Inj (Omnipaque 350 Inj) (09/15/16 22:06) Admit Order (Ed Use Only) (09/16/16 ) Aspirin Chew (Aspirin Chew) (09/16/16 02:30) Labs Laboratory Tests Test 09/15/16 18:30 White Blood Count 6.6 TH/MM3 Red Blood Count 4.53 MIL/MM3 Hemoglobin 13.5 GM/DL Hematocrit 40.5 % Mean Corpuscular Volume 89.5 FL Mean Corpuscular Hemoglobin 29.8 PG Mean Corpuscular Hemoglobin 33.3 % Concent Red Cell Distribution Width 14.0 % Platelet Count 224 TH/MM3 Mean Platelet Volume 8.0 FL Neutrophils (%) (Auto) 69.3 % Lymphocytes (%) (Auto) 15.5 % Monocytes (%) (Auto) 9.3 % Eosinophils (%) (Auto) 4.4 % Basophils (%) (Auto) 1.5 % Neutrophils # (Auto) 4.6 TH/MM3 Lymphocytes # (Auto) 1.0 TH/MM3 Monocytes # (Auto) 0.6 TH/MM3 Eosinophils # (Auto) 0.3 TH/MM3 Basophils # (Auto) 0.1 TH/MM3 CBC Comment DIFF FINAL Differential Comment Prothrombin Time 11.5 SEC Prothromb Time International 1.0 RATIO Ratio Activated Partial 28.9 SEC Thromboplast Time D-Dimer Quantitative (PE/DVT) 0.47 MG/L FEU Sodium Level 138 MEQ/L Potassium Level 3.6 MEQ/L Chloride Level 105 MEQ/L Carbon Dioxide Level 23.0 MEQ/L Anion Gap 10 MEQ/L Blood Urea Nitrogen 30 MG/DL Creatinine 1.18 MG/DL Estimat Glomerular Filtration 44 ML/MIN Rate Random Glucose 98 MG/DL Calcium Level 8.8 MG/DL Magnesium Level 2.2 MG/DL Total Creatine Kinase 37 U/L Troponin I 0.08 NG/ML B-Type Natriuretic Peptide 96 PG/ML Thyroid Stimulating Hormone 0.814 uIU/ML 3rd Gen [facility] Supervised Visit with ESTEBAN: Yes Interpretation(s) ECG shows A. fib, rate controlled. No ST elevation or depression. Narrative Course Patient is an 81-year-old female who comes in complaining of shortness of breath and leg weakness. Exam shows lungs are clear to auscultation, no neurologic abnormalities. IV established, labs sent. Labs show troponin of 0.08. No other acute abnormalities. Chest x-ray shows no acute abnormalities, it does show interstitial lung disease. Patient given aspirin. CTA performed, shows no aortic dissection. Dr. Stewart paged multiple times from 00:54 until 2:30 AM with no response. Admission put in under his name has patient is a patient of Dr. Beck, and the call center said that Dr. Stewart was covering. Diagnosis Primary Impression: Elevated troponin Additional Impression: LYLES (dyspnea on exertion) Admitting Information Admitting Physician Requests: Admit Condition: Stable Larisa Howe MD Sep 16, 2016 00:57
[2016-09-16] MEDS ORDERED: ASPIRIN 81 MG CHEW TAB CHEW ONE (02:30)
[2016-09-16] MEDS ORDERED: SODIUM CHLORIDE 0.9% FLUSH 5 ML FLUSH FLUSH PRN (05:45)
[2016-09-16] MEDS ORDERED: NALOXONE HCL 0.4 MG/ML AMP IV PRN (05:45)
[2016-09-16] MEDS: SODIUM CHLORIDE 0.9% FLUSH 5 ML FLUSH FLUSH SCH ×2 (09:00→21:37)
[2016-09-16] MEDS ORDERED: NON-FORMULARY DRUG (Oxybutynin ER 24 HR 5 MG) PO SCH (09:00)
[2016-09-16] MEDS: TOLTERODINE TARTRATE 2 MG CAP LA PO SCH (09:00)
[2016-09-16] MEDS: DULoxetine HCl DR 60 MG CAP PO SCH (09:00)
[2016-09-16] MEDS: LISINOPRIL 5 MG TAB PO SCH (10:14)
[2016-09-16] MEDS: PANTOPRAZOLE SOD 20 MG DELAYED RELEASE TAB PO SCH (10:14)
[2016-09-16] MEDS: APIXABAN 5 MG TABLET PO SCH ×2 (10:14→21:37)
[2016-09-16] MEDS: PREGABALIN 25 MG CAP PO SCH (10:14)
--- NOTE | 2016-09-16 11:07 | HHI.HP ---
[facility] Jason Ellison MD Admission Diagnosis ChF, elevated Troponin Diagnoses: Chief Complaint: shortness of breath, palpitations Travel History International Travel<30 Days: No Contact w/Intl Traveler <30 Da: No Traveled to Known Affected Are: No History of Present Illness 81-year-old female with history of atrial fibrillation on Eliquis, HTN, HLD, RA , depression, COPD, GI bleed, urinary incontinence, presents with ongoing shortness of breath and palpitations. The patient states she has had atrial fibrillation for years now, previously on Coumadin, then Pradaxa, now on Eliquis. She recently underwent cardiac catheterization with ablation by Dr. Rivero on 07/20/16. The patient then went back into atrial fibrillation therefore she underwent cardioversion on 09/07/16. The patient states for months now she has had ongoing shortness of breath, dyspnea on exertion, and "fluttering" in her chest. Denies lower extremity edema or orthopnea. Occasional dry nonproductive cough which she believes is related to seasonal allergies. She denies any specific chest pains but does have intermittent central chest pressure without radiation, no associated nausea/vomiting/diaphoresis. She states yesterday she was just making her bed when she became extremely dyspneic and had to sit down to rest. She called Dr. Rivero's office who instructed her to come to the ER. Upon arrival to the ER, EKG showed atrial fibrillation, rate controlled. Troponins elevated at 0.08 2. She has been admitted to observation for evaluation by her talent acquisition program manager Dr. Rivero. Review of Systems Constitutional: DENIES: Diaphoretic episodes, Fever, Chills, Dizziness, Change in appetite Endocrine: DENIES: Polydipsia, Polyuria, Polyphagia Eyes: DENIES: Blurred vision, Vision loss, Double Vision Ears, nose, mouth, throat: DENIES: Throat pain, Running Nose, Odynophagia Respiratory: COMPLAINS OF: Cough, Shortness of breath, DENIES: Sputum production Cardiovascular: COMPLAINS OF: Chest pain, Palpitations, Dyspnea on Exertion, DENIES: Syncope, Lower Extremity Edema, Orthopnea Gastrointestinal: DENIES: Abdominal pain, Constipation, Diarrhea, Nausea, Vomiting Genitourinary: DENIES: Urinary frequency, Urgency, Dysuria Musculoskeletal: COMPLAINS OF: Back pain, DENIES: Joint pain, Neck pain Integumentary: DENIES: Abnormal pigmentation, Pruritus, Rash Hematologic/lymphatic: DENIES: Bruising, Lymphadenopathy Immunologic/allergic: DENIES: Eczema, Urticaria Neurologic: DENIES: Abnormal gait, Headache, Localized weakness Psychiatric: DENIES: Anxiety, Depression Past Family Social History Past Medical History Atrial fibrillation s/p ablation 07/20/16 and cardioversion 09/07/16 Hypertension Hyperlipidemia Rheumatoid arthritis Depression COPD GI bleed Urinary incontinence Past Surgical History 07/20/16 - cardiac cath with EP study, mapping/radiofrequency ablation of atrial fibrillation by Dr. Rivero 07/20/16 - ISIDRO showed normal systolic function EF 55-60%, mild-mod TR Appendectomy Total hysterectomy Ganglionic cysts removed Tonsillectomy Dental extractions Reported Medications Proventil Hfa 6.7 GM Inh (Albuterol Sulfate) 90 Mcg/Act Aer 2 Puff INH Q4-6H PRN Omeprazole 20 Mg Tab 20 Mg PO DAILY Diltiazem CD 24 HR 240 Mg Caper 240 Mg PO DAILY Pravastatin 10 Mg Tab 10 Mg PO DAILY Oxybutynin ER 24 HR (Oxybutynin Chloride) 5 Mg Tab 5 Mg PO DAILY Lisinopril 5 Mg Tab 5 Mg PO DAILY Isosorbide Mononitrate ER (Isosorbide Mononitrate) 30 Mg Rj 30 Mg PO DAILY Eliquis (Apixaban) 5 Mg Tab 5 Mg PO BID Duloxetine DR (Duloxetine HCl) 60 Mg Capdr 60 Mg PO DAILY Allergies: Coded Allergies: Shellfish (Verified Allergy, Severe, Anaphylaxis, 09/15/16) Active Ordered Medications Current Medications Medications (Trade) Dose Ordered Sig/Angeli Route Start Time Stop Time Status Last Admin (NS Flush) 2 ml UNSCH PRN FLUSH 09/16/16 05:45 (NS Flush) 2 ml BID FLUSH 09/16/16 09:00 (Narcan Inj) 0.4 mg UNSCH PRN IV 09/16/16 05:45 (Eliquis) 5 mg BID PO 09/16/16 09:00 09/16/16 10:14 (Cymbalta Dr) 60 mg DAILY PO 09/16/16 09:00 (Prinivil) 5 mg DAILY PO 09/16/16 09:00 09/16/16 10:14 (Protonix) 20 mg DAILY PO 09/16/16 09:00 09/16/16 10:14 (Pravachol) 10 mg HS PO 09/16/16 21:00 (Lyrica) 50 mg DAILY PO 09/16/16 09:00 09/16/16 10:14 (Detrol La) 2 mg DAILY PO 09/16/16 09:00 Family History Father with heart disease, Mother with pancreatic cancer, 3 brothers with unknown cancer, 2 brothers with heart disease, 2 sisters still living, fairly healthy (1 younger, 1 older) Social History Prior tobacco use, smoked 1/2 PPD, quit 23years ago Denies any alcohol or illicit drug use Lives alone with her dog Physical Exam Vital Signs Vital Signs Date Time Temp Pulse Resp B/P Pulse Ox O2 Delivery O2 Flow Rate FiO2 09/16/16 10:16 96 Room Air 09/16/16 10:16 74 16 106/57 96 Room Air 09/16/16 07:35 85 15 97/55 95 Room Air 09/16/16 02:41 69 20 136/55 95 Room Air 09/15/16 20:25 98 18 126/77 97 Room Air 09/15/16 20:25 93 25 Room Air 09/15/16 16:53 97.3 109 20 120/64 92 Room Air Physical Exam GENERAL: Well-nourished, well-developed pleasant elderly female patient in [facility]. SKIN: Warm and dry. No rash. HEAD: Normocephalic. Atraumatic. EYES: Pupils equal and round. No scleral icterus. No injection or drainage. ENT: No nasal bleeding or discharge. Mucous membranes pink and moist. NECK: Supple. Trachea midline. CARDIOVASCULAR: Irregular rate and rhythm. S1, S2 noted. No murmur appreciated. RESPIRATORY: No accessory muscle use. Clear to auscultation. Breath sounds equal bilaterally. GASTROINTESTINAL: Abdomen soft, non-tender, nondistended. Normoactive bowel sounds x4. MUSCULOSKELETAL: No obvious deformities. Extremities without clubbing, cyanosis , or edema. NEUROLOGICAL: Awake and alert. No obvious cranial nerve deficits. Motor grossly within normal limits. 5/5 muscle strength in bilateral upper and lower extremities. Normal speech. PSYCHIATRIC: Appropriate mood and affect; insight and judgment normal. Laboratory Laboratory Tests Test 09/15/16 09/16/16 18:30 03:05 White Blood Count 6.6 Red Blood Count 4.53 Hemoglobin 13.5 Hematocrit 40.5 Mean Corpuscular Volume 89.5 Mean Corpuscular Hemoglobin 29.8 Mean Corpuscular Hemoglobin 33.3 Concent Red Cell Distribution Width 14.0 Platelet Count 224 Mean Platelet Volume 8.0 Neutrophils (%) (Auto) 69.3 Lymphocytes (%) (Auto) 15.5 Monocytes (%) (Auto) 9.3 Eosinophils (%) (Auto) 4.4 Basophils (%) (Auto) 1.5 Neutrophils # (Auto) 4.6 Lymphocytes # (Auto) 1.0 Monocytes # (Auto) 0.6 Eosinophils # (Auto) 0.3 Basophils # (Auto) 0.1 CBC Comment DIFF FINAL Differential Comment Prothrombin Time 11.5 Prothromb Time International 1.0 Ratio Activated Partial 28.9 Thromboplast Time D-Dimer Quantitative (PE/DVT) 0.47 Sodium Level 138 Potassium Level 3.6 Chloride Level 105 Carbon Dioxide Level 23.0 Anion Gap 10 Blood Urea Nitrogen 30 Creatinine 1.18 Estimat Glomerular Filtration 44 Rate Random Glucose 98 Calcium Level 8.8 Magnesium Level 2.2 Total Creatine Kinase 37 Troponin I 0.08 0.08 B-Type Natriuretic Peptide 96 Thyroid Stimulating Hormone 0.814 3rd Gen Result Diagram: 09/15/16 1830 09/15/16 1830 Imaging Last Impressions Aorta CTA 09/15/162028 Signed Impressions: Service Date/Time: Thursday, September 15, 2016 22:02 - CONCLUSION: Calcific atherosclerotic vascular disease without evidence of aneurysmal enlargement, dissection or significant branch occlusive disease. Chronic interstitial lung disease with possible superimposed pneumonitis in the upper lobes. Status post hysterectomy. No significant soft tissue abnormalities in the abdomen or pelvis. Liam Trimble MD Chest X-Ray 09/15/16 3320 Signed Impressions: Service Date/Time: Thursday, September 15, 2016 18:26 - CONCLUSION: Interstitial lung disease. No evidence of consolidating airspace disease. Improved aeration compared to prior study. Liam Trimble MD Assessment and Plan Problem List: (1) LYLES (dyspnea on exertion) ICD Code: R06.09 Status: Acute (2) Elevated troponin ICD Code: R74.8 Status: Acute (3) Atrial fibrillation ICD Code: I48.91 Status: Chronic Assessment and Plan 81-year-old female with history of atrial fibrillation on Eliquis, HTN, HLD, RA , depression, COPD, GI bleed, urinary incontinence, presents with ongoing shortness of breath and palpitations. Dyspnea/Palpitations: suspect related to afib. S/p ablation 07/20/[address] Rivero and cardioversion 09/07. Aorta CTA images reviewed, showed no aneurysm, unremarkable. Troponins elevated but flat at 0.08 x2. EKG with afib, rate controlled, no acute ST-T changes. Consult patient's talent acquisition program manager Dr. Rivero. Elevated Troponins: elevated at 0.08 x2. S/p aspirin 325mg x1. EKG without acute ST changes. Check 3rd set of cardiac enzymes and EKG. Consult cardiology. Atrial Fibrillation: chronic, likely contributing to symptoms above. Continue patient's Eliquis. HTN/HLD: chronic, continue patient's lisinopril, statin. GERD: chronic, continue PPI. Urinary Incontinence: continue patient's oxybutynin. DVT Prophylaxis: on Eliquis Discussed Condition With Patient, SUPERINTENDENT PIER, Izabella Ring PA-C Sep 16, 2016 11:06
[2016-09-16] MEDS: PRAVASTATIN SOD 10 MG TAB PO SCH (21:36)
--- NOTE | 2016-09-16 23:43 | EKG ---
Date Performed: 09/16/2016 Time Performed: 03:13:38 PTAGE: 81 years EKG: ATRIAL FIBRILLATION MODERATE INTRAVENTRICULAR CONDUCTION DELAY ABNORMAL ECG NO PREVIOUS TRACING DOCTOR: Ever Christian Interpretating Date/Time 09/16/2016 23:42:23
--- NOTE | 2016-09-16 23:53 | EKG ---
Date Performed: 09/15/2016 Time Performed: 18:40:09 PTAGE: 81 years EKG: ATRIAL FIBRILLATION POSSIBLE ANTERIOR MYOCARDIAL INFARCTION ABNORMAL RHYTHM ECG PREVIOUS TRACING : 09/07/2016 09.20 Compared to the previous tracing, afib is new DOCTOR: Ever Christian Interpretating Date/Time 09/16/2016 23:52:21
[2016-09-17] VITALS (15 sets, daily range): BP systolic 117–137; BP diastolic 58–76; PULSE 73–121; RESP 16–19; TEMP 97.4–98.1; O2SAT 93–100
--- NOTE | 2016-09-17 08:12 | HHI.PR ---
Subjective Remarks Follow up for atrial fibrillation. The patient reports feeling "ok" this morning. Still has occasional "flutters" in her chest, mostly when she gets up from bed. Has chronic shortness of breath which she believes is related to the afib. Denies any chest pains. Telemetry reveals patient now in afib w/RVR, HR 120s mostly, up to 140s at times. Objective Vitals Vital Signs Date Time Temp Pulse Resp B/P Pulse Ox O2 Delivery O2 Flow Rate FiO2 09/17/16 00:15 98.1 105 19 126/67 93 09/16/16 19:44 98.1 87 19 126/74 96 09/16/16 16:30 96.7 97 19 150/72 96 09/16/16 15:10 76 16 118/63 97 09/16/16 14:56 82 16 111/51 97 Room Air 09/16/16 12:48 84 16 109/64 97 Room Air 09/16/16 12:44 16 09/16/16 10:16 96 Room Air 09/16/16 10:16 74 16 106/57 96 Room Air Result Diagram: 09/15/16 1830 09/15/16 1830 Imaging Last Impressions Aorta CTA 09/15/162028 Signed Impressions: Service Date/Time: Thursday, September 15, 2016 22:02 - CONCLUSION: Calcific atherosclerotic vascular disease without evidence of aneurysmal enlargement, dissection or significant branch occlusive disease. Chronic interstitial lung disease with possible superimposed pneumonitis in the upper lobes. Status post hysterectomy. No significant soft tissue abnormalities in the abdomen or pelvis. Liam Trimble MD Chest X-Ray 09/15/16 2100 Signed Impressions: Service Date/Time: Thursday, September 15, 2016 18:26 - CONCLUSION: Interstitial lung disease. No evidence of consolidating airspace disease. Improved aeration compared to prior study. Liam Trimble MD Objective Remarks GENERAL: Well-nourished, well-developed pleasant elderly female patient in [facility]. SKIN: Warm and dry. No rash. HEENT: Normocephalic. Atraumatic. Pupils equal and round. No scleral icterus. No injection or drainage. Mucous membranes pink and moist. NECK: Supple. Trachea midline. CARDIOVASCULAR: Irregular rate and rhythm. S1, S2 noted. No murmur appreciated. RESPIRATORY: No accessory muscle use. Clear to auscultation. Breath sounds equal bilaterally. GASTROINTESTINAL: Abdomen soft, non-tender, nondistended. Normoactive bowel sounds x4. MUSCULOSKELETAL: No obvious deformities. Extremities without clubbing, cyanosis , or edema. NEUROLOGICAL: Awake and alert. No obvious cranial nerve deficits. Motor grossly within normal limits. Normal speech. PSYCHIATRIC: Appropriate mood and affect; insight and judgment normal. Medications and IVs Current Medications Medications (Trade) Dose Ordered Sig/Angeli Route Start Time Stop Time Status Last Admin (NS Flush) 2 ml UNSCH PRN FLUSH 09/16/16 05:45 (NS Flush) 2 ml BID FLUSH 09/16/16 09:00 09/16/16 21:37 (Narcan Inj) 0.4 mg UNSCH PRN IV 09/16/16 05:45 (Eliquis) 5 mg BID PO 09/16/16 09:00 09/16/16 21:37 (Cymbalta Dr) 60 mg DAILY PO 09/16/16 09:00 09/16/16 09:00 (Prinivil) 5 mg DAILY PO 09/16/16 09:00 09/16/16 10:14 (Protonix) 20 mg DAILY PO 09/16/16 09:00 09/16/16 10:14 (Pravachol) 10 mg HS PO 09/16/16 21:00 09/16/16 21:36 (Lyrica) 50 mg DAILY PO 09/16/16 09:00 09/16/16 10:14 (Detrol La) 2 mg DAILY PO 09/16/16 09:00 09/16/16 09:00 (Pneumovax-23 Inj) 25 mcg ONCE ONCE IM 09/17/16 10:00 09/17/16 10:01 (Flu (Quadrivalent) Vaccine Inj) 0.5 ml ONCE ONCE IM 09/17/16 10:00 09/17/16 10:01 A/P Problem List: (1) LYLES (dyspnea on exertion) ICD Code: R06.09 Status: Acute (2) Elevated troponin ICD Code: R74.8 Status: Acute (3) Atrial fibrillation ICD Code: I48.91 Status: Chronic Assessment and Plan 81-year-old female with history of atrial fibrillation on Eliquis, HTN, HLD, RA , depression, COPD, GI bleed, urinary incontinence, presents with ongoing shortness of breath and palpitations. Dyspnea/Palpitations: suspect related to afib with RVR. S/p ablation 07/20/[address] Rivero and cardioversion 09/07. Aorta CTA images reviewed, showed no aneurysm , unremarkable. Troponins elevated but flat, EKG with afib, rate controlled, no acute ST-T changes. Consult patient's general maintenance technician, discussed with Dr. Rivero, plan for cardioversion this afternoon at 3pm, NPO after breakfast Atrial Fibrillation with RVR: acute on chronic, likely contributing to symptoms above. Continue patient's Eliquis. Planning cardioversion today. Transfer to [facility]. Elevated Troponins: elevated at 0.08, 0.08, 0.09. Suspect secondary to recent ablation. S/p aspirin 325mg x1. EKG without acute ST changes. No complaints of chest pain. Cardiology on board as above. HTN/HLD: chronic, continue patient's lisinopril, statin. GERD: chronic, continue PPI. Urinary Incontinence: continue patient's oxybutynin. DVT Prophylaxis: on Eliquis Izabella Peña PA-C Sep 17, 2016 08:12
[2016-09-17] MEDS: DULoxetine HCl DR 60 MG CAP PO SCH (08:57)
[2016-09-17] MEDS: PANTOPRAZOLE SOD 20 MG DELAYED RELEASE TAB PO SCH (08:57)
[2016-09-17] MEDS: TOLTERODINE TARTRATE 2 MG CAP LA PO SCH (08:57)
[2016-09-17] MEDS: APIXABAN 5 MG TABLET PO SCH ×2 (08:57→22:07)
[2016-09-17] MEDS: PREGABALIN 25 MG CAP PO SCH (08:58)
[2016-09-17] MEDS: SODIUM CHLORIDE 0.9% FLUSH 5 ML FLUSH FLUSH SCH ×2 (08:58→21:00)
[2016-09-17] MEDS: LISINOPRIL 5 MG TAB PO SCH (08:58)
[2016-09-17] MEDS ORDERED: PNEUMOCOCCAL POLYVALENT INJ 25 MCG/0.5 ML SYR IM ONE (10:00)
[2016-09-17] MEDS ORDERED: INFLUENZA VIRUS VACCINE (QUADRIVALENT) 0.5 ML SYR IM ONE (10:00)
--- NOTE | 2016-09-17 18:05 | HHI.PR ---
Subjective Remarks Feeling ok Objective Vital Signs Date Time Temp Pulse Resp B/P Pulse Ox O2 Delivery O2 Flow Rate FiO2 09/17/16 17:05 105 09/17/16 16:16 102 09/17/16 15:26 98.1 103 18 137/65 96 09/17/16 15:13 121 09/17/16 12:25 97.6 99 18 125/76 96 09/17/16 10:21 18 09/17/16 08:40 81 09/17/16 08:29 97.4 96 16 117/58 95 09/17/16 00:15 98.1 105 19 126/67 93 09/16/16 19:44 98.1 87 19 126/74 96 Result Diagram: 09/15/16 1830 09/15/16 1830 Imaging Alert, fully oriented Lungs: ventilated Heart: S1, S2 regular Abdomen: no mass Ext: no edema Current Medications Medications (Trade) Dose Ordered Sig/Angeli Route Start Time Stop Time Status Last Admin (NS Flush) 2 ml UNSCH PRN FLUSH 09/16/16 05:45 (NS Flush) 2 ml BID FLUSH 09/16/16 09:00 09/17/16 08:58 (Narcan Inj) 0.4 mg UNSCH PRN IV 09/16/16 05:45 (Eliquis) 5 mg BID PO 09/16/16 09:00 09/17/16 08:57 (Cymbalta Dr) 60 mg DAILY PO 09/16/16 09:00 09/17/16 08:57 (Prinivil) 5 mg DAILY PO 09/16/16 09:00 09/17/16 08:58 (Protonix) 20 mg DAILY PO 09/16/16 09:00 09/17/16 08:57 (Pravachol) 10 mg HS PO 09/16/16 21:00 09/16/16 21:36 (Lyrica) 50 mg DAILY PO 09/16/16 09:00 09/17/16 08:58 (Detrol La) 2 mg DAILY PO 09/16/16 09:00 09/17/16 08:57 (Cordarone) 400 mg BID PO 09/17/16 21:00 UNV Assessment and Plan Problem List: (1) Atrial fibrillation Status: Chronic Plan: SP cardioversion. In sinus rhythm. Doing well Amio added Can be DH in AM Follow up in 3 weeks (2) HTN (hypertension) Status: Chronic Plan: SBP 137 Purvi Rivero MD Sep 17, 2016 18:05
[2016-09-17] MEDS: AMIODARONE 200 MG TAB PO SCH (22:08)
[2016-09-17] MEDS: PRAVASTATIN SOD 10 MG TAB PO SCH (22:09)
--- NOTE | 2016-09-17 22:10 | MB ---
cc: MONTSE GANT M.D. DATE OF CONSULTATION 09/17/16 REASON FOR CONSULTATION Atrial fibrillation, shortness of breath. HISTORY OF PRESENT ILLNESS Ms. Peraza is an 81-year-old female history of atrial fibrillation, previous ablation, admitted due to atrial fibrillation and chest pain. She was found with increased troponin. I was consulted for evaluation. The chart was reviewed. The patient was evaluated. ALLERGIES SHELLFISH SOCIAL HISTORY Negative for smoking and drinking. FAMILY HISTORY Noncontributory to her current medical condition. MEDICATIONS 1. Eliquis 2. Lisinopril 3. Pravachol. 4. LYRICA REVIEW OF SYSTEMS She referred no chest pain, no chest discomfort, no vomiting. No fever. PHYSICAL EXAMINATION GEMERAL: Alert, fully oriented. VITAL SIGNS: Blood pressure on evaluation 118/63, pulse 97, respiratory rate 18. LUNGS: Ventilated. CARDIOVASCULAR: S1, S2, __regular. ABDOMEN: Soft, obese. No mass. EXTREMITIES: No edema. CARDIOLOGY STUDIES Electrocardiogram - atrial fibrillation. LABORATORY DATA Troponin 0.08, hemoglobin 13.5, white blood cell 6.6, potassium 3.6, creatinine 1.18. ASSESSMENT AND RECOMMENDATIONS Mrs. Peraza is currently stable. She is back in atrial fibrillation. Heart rate is controlled, but she is symptomatic. Troponin 0.08. This is mainly due to ablation. At this point, my recommendation continue with current medical management. Continue on Eliquis. If seen in A fib tomorrow, cardioversion will be performed. MD JENNIFER German/ /5:58 PM /10:02 PM
--- NOTE | 2016-09-17 23:43 | EKG ---
Date Performed: 09/16/2016 Time Performed: 09:44:14 PTAGE: 81 years EKG: ATRIAL FIBRILLATION BORDERLINE LEFT AXIS DEVIATION PROLONGED QT INTERVAL ABNORMAL ECG INTER PRETATION BASED ON A DEFAULT AGE OF 40 YEARS PREVIOUS TRACING : 09/15/2016 18.40 DOCTOR: Purvi Rivero Interpretating Date/Time 09/17/2016 23:41:44
[2016-09-18] VITALS (15 sets, daily range): BP systolic 129–148; BP diastolic 58–80; PULSE 62–92; RESP 16–18; TEMP 97.4–97.7; O2SAT 97–99
--- NOTE | 2016-09-18 06:20 | MA ---
cc: MONTSE RIVERO M.D. DATE: 09/17/2016 TYPE OF PROCEDURE: Cardioversion. Mrs. Peraza is a 81-year-old female, atrial fibrillation, to undergo cardioversion. The risks, the nature and the benefit of the procedure are clearly stated to her risks include pneumothorax, cardiac arrest, need for intubation and even . she understood and agreed to proceed. PROCEDURE After written informed consent was obtained, the patient was advised by anesthesiologist. Anterolateral pad were placed. A 200 sync biphasic joule was delivered, that converted the patient into sinus rhythm. At this point the patient is followed. ANESTHESIA No incident report. CONCLUSION Successful cardioversion, RECOMMENDATIONS The patient is going to be observed, I am going to initiate amiodarone. If the patient is stable in the morning can be discharged home. Follow up in two or three weeks as an outpatient. Montse Rivero MD /david /6:01 PM /6:14 AM
--- NOTE | 2016-09-18 07:29 | HHI.DCPOC ---
Discharge Care Plan Diagnosis: (1) Atrial fibrillation (2) HTN (hypertension) (3) HLD (hyperlipidemia) Goals to Promote Your Health * To prevent worsening of your condition and complications * To maintain your health at the optimal level Directions to Meet Your Goals Take your medications as prescribed Follow your dietary instruction Follow activity as directed Keep your appointments as scheduled Take your immunizations and boosters as scheduled If your symptoms worsen call your PCP, if no PCP go to Urgent Care Center or Emergency Room Smoking is Dangerous to Your Health. Avoid second hand smoke Call the 24-hour hour crisis hotline for domestic abuse at Izabella Peña PA-C Sep 18, 2016 7:29 am
[2016-09-18] MEDS: AMIODARONE 200 MG TAB PO SCH (10:11)
[2016-09-18] MEDS: LISINOPRIL 5 MG TAB PO SCH (10:11)
[2016-09-18] MEDS: DULoxetine HCl DR 60 MG CAP PO SCH (10:11)
[2016-09-18] MEDS: TOLTERODINE TARTRATE 2 MG CAP LA PO SCH (10:11)
[2016-09-18] MEDS: PREGABALIN 25 MG CAP PO SCH (10:11)
[2016-09-18] MEDS: APIXABAN 5 MG TABLET PO SCH (10:12)
[2016-09-18] MEDS: PANTOPRAZOLE SOD 20 MG DELAYED RELEASE TAB PO SCH (10:12)
[2016-09-18] MEDS: SODIUM CHLORIDE 0.9% FLUSH 5 ML FLUSH FLUSH SCH (10:12)
[2016-09-18] MEDS ORDERED: AMIO200T PO ×2 (11:27)
--- NOTE | 2016-09-18 13:29 | HHI.DS ---
Discharge Summary Admission Date Sep 16, 2016 at 02:30 Discharge Date: Sep 18, 2016 Admitting Diagnosis ChF, elevated Troponin (1) LYLES (dyspnea on exertion) ICD Code: R06.09 Diagnosis: Secondary (2) Elevated troponin ICD Code: R74.8 Diagnosis: Secondary (3) Atrial fibrillation ICD Code: I48.91 Diagnosis: Principal Procedures Cardioversion 09/17/16 Brief History - From Admission 81-year-old female with history of atrial fibrillation on Eliquis, HTN, HLD, RA , depression, COPD, GI bleed, urinary incontinence, presents with ongoing shortness of breath and palpitations. The patient states she has had atrial fibrillation for years now, previously on Coumadin, then Pradaxa, now on Eliquis. She recently underwent cardiac catheterization with ablation by Dr. Rivero on 07/20/16. The patient then went back into atrial fibrillation therefore she underwent cardioversion on 09/07/16. The patient states for months now she has had ongoing shortness of breath, dyspnea on exertion, and "fluttering" in her chest. Denies lower extremity edema or orthopnea. Occasional dry nonproductive cough which she believes is related to seasonal allergies. She denies any specific chest pains but does have intermittent central chest pressure without radiation, no associated nausea/vomiting/diaphoresis. She states yesterday she was just making her bed when she became extremely dyspneic and had to sit down to rest. She called Dr. Rivero's office who instructed her to come to the ER. Upon arrival to the ER, EKG showed atrial fibrillation, rate controlled. Troponins elevated at 0.08 2. She has been admitted to observation for evaluation by her toll collector Dr. Rivero. CBC/BMP: 09/15/16 1830 09/15/16 1830 Significant Findings Laboratory Tests Test 09/15/16 09/16/16 09/16/16 18:30 03:05 11:46 Monocytes (%) (Auto) 9.3 % (0.0-8.0) Eosinophils (%) (Auto) 4.4 % (0.0-4.0) Blood Urea Nitrogen 30 MG/DL (7-18) Creatinine 1.18 MG/DL (0.50-1.00) Estimat Glomerular Filtration 44 ML/MIN (>89) Rate Troponin I 0.08 NG/ML 0.08 NG/ML 0.09 NG/ML (0.02-0.05) (0.02-0.05) (0.02-0.05) PE at Discharge GENERAL: Well-nourished, well-developed pleasant elderly female patient in NAD. SKIN: Warm and dry. No rash. HEENT: Normocephalic. Atraumatic. Pupils equal and round. No scleral icterus. No injection or drainage. Mucous membranes pink and moist. NECK: Supple. Trachea midline. CARDIOVASCULAR: Irregular rate and rhythm. S1, S2 noted. No murmur appreciated. RESPIRATORY: No accessory muscle use. Clear to auscultation. Breath sounds equal bilaterally. GASTROINTESTINAL: Abdomen soft, non-tender, nondistended. Normoactive bowel sounds x4. MUSCULOSKELETAL: No obvious deformities. Extremities without clubbing, cyanosis , or edema. NEUROLOGICAL: Awake and alert. No obvious cranial nerve deficits. Motor grossly within normal limits. Normal speech. PSYCHIATRIC: Appropriate mood and affect; insight and judgment normal. Hospital Course 81-year-old female with history of atrial fibrillation on Eliquis, HTN, HLD, RA , depression, COPD, GI bleed, urinary incontinence, presents with ongoing shortness of breath and palpitations. Upon admission, the patient was found to be in atrial fibrillation with RVR. Patient is s/p ablation 07/20/[address] Rivero and cardioversion 09/07. Aorta CTA images reviewed, showed no aneurysm, unremarkable. Troponins elevated but flat, EKG with afib, rate controlled, no acute ST-T changes. Patient and father cardioversion 09/17/16 patient was started on amiodarone. She will continue eliquis. Mildly elevated troponin, flat, likely secondary to cardioversion. Patient did not have any chest pain. Patient will be discharged after cardiology clearance on eliquis and amiodarone. She'll follow-up in 2-3 weeks. Discussed with RN and with the patient. Pt Condition on Discharge: Good Discharge Disposition: Discharge Home Discharge Time: > 30 minutes Discharge Instructions DIET: Follow Instructions for: Heart Healthy Diet Activities you can perform: Regular-No Restrictions Follow up Referrals: Cardiology - 2 Weeks with Purvi Rivero MD PCP Follow-up - 1 Week with Jason Ellison MD New Medications: Amiodarone (Amiodarone) 200 Mg Tab 400 MG PO BID Afib #10 TAB Amiodarone (Amiodarone) 200 Mg Tab 200 MG PO DAILY Start September 23 afib #30 TAB Continued Medications: Apixaban (Eliquis) 5 Mg Tab 5 MG PO BID Blood Clot Prevention #[address] (Cymbalta DR) 60 Mg Capdr 60 MG PO DAILY #30 Ref 0 CAP Lisinopril (Lisinopril) 5 Mg Tab 5 MG PO DAILY Blood Pressure Management #30 Ref 0 TAB Omeprazole (Omeprazole) 20 Mg Tab 20 MG PO DAILY #30 Ref 0 TAB Oxybutynin ER 24 HR (Oxybutynin ER 24 HR) 5 Mg Tab 5 MG PO DAILY Overactive Bladder Ref 0 TAB Pravastatin (Pravastatin) 10 Mg Tab 10 MG PO HS Cholesterol Management #30 Ref 0 TAB Pregabalin (Lyrica) 50 Mg Cap 50 MG PO DAILY #30 Ref 0 CAP Luma Melchor MD Sep 18, 2016 13:29
[2016-09-23] MEDS ORDERED: AMIODARONE 200 MG TAB PO SCH (09:00)
== END 2016-09-18 13:41 | disposition home or self-care (01) ==
LOC: NETRI 16:51 → NEDA 09-16 02:30 → INTOOBSV 09-16 02:30 → NEPGCP 09-16 15:46 → HCIN 09-17 14:50
PROVIDERS: ADMIT Hospitalist; ATTEND Hospitalist
DX: I48.2 Chronic atrial fibrillation (principal); R06.02 Shortness of breath; J44.9 Chronic obstructive pulmonary disease, unspecified; K21.9 Gastro-esophageal reflux disease without esophagitis; N18.3 Chronic kidney disease, stage 3 (moderate); I10 Essential (primary) hypertension; R74.8 Abnormal levels of other serum enzymes; Z79.01 Long term (current) use of anticoagulants; Z23 Encounter for immunization
CPT/HCPCS: 71010; 71275; 74174; 80048; 82550; 83735; 83880; 84443; 84484; 85025; 85379; 85610; 85730; 90732; 92960; 93005; 97162; 99285; G0378; G8987; G8988; Q2038; Q9967; 90471; 90472; 90686; G0008; G0009

== ENCOUNTER 2017-01-13 07:37 | Observation (INO) | payer MEDICARE, BC ==
[~2017-01-13] VITALS: Ht 152.4 cm; Wt 76.2 kg
[~2017-01-13 07:37] MED LIST changes: -ALBU6.7H INH; +CYMB60CA PO; -DILT-64 PO; -DULO1CAP3 PO; -ISOS30TA3 PO; +LYRI50CA PO
[2017-01-13 07:43] VITALS: BP 136/63; PULSE 82; RESP 15; TEMP 98.2; O2SAT 99
[2017-01-13 07:46] VITALS: O2SAT 98
--- NOTE | 2017-01-13 07:52 | PD ---
HPI Chief Complaint: Pain: Acute or Chronic Time Seen by Provider: 07:46 Travel History International Travel<30 days: No Contact w/Intl Traveler<30days: No Traveled to known affect area: No History of Present Illness HPI The patient is a 82-year-old female who presents emergency department via EMS for left hip and groin pain. The patient developed left hip and groin pain at approximately 8 PM last night while getting ready for bed. The patient had difficulty ambulated to the bathroom, is now unable to bear weight on the affected legs secondary to pain. The pain is moderate, worse with movement and palpation, and minimally alleviated at rest. She denies any known falls or trauma to the left hip denies any previous left hip injuries. She denies any history of pathological fractures or significant osteoporosis. The patient's primary physician is Dr. Jason Ellison. Symptoms are moderate, worse with movement and palpation, and alleviated at rest. The patient denies any radiation of the pain down the left lower extremity and denies any numbness or tingling of the left lower extremity. PFSH Past Medical History Hx Anticoagulant Therapy: Yes Arthritis: Yes (RA) Asthma: No Atrial Fibrillation: Yes Blood Disorders: No Depression: Yes Heart Rhythm Problems: Yes (afib) Cancer: No Cardiovascular Problems: Yes (afib) High Cholesterol: No Chemotherapy: No Chest Pain: No Congestive Heart Failure: No COPD: Yes Diabetes: No Diminished Hearing: No Endocrine: No Genitourinary: Yes Hypertension: Yes (controlled) Immune Disorder: No Musculoskeletal: No Neurologic: No Psychiatric: No Reproductive: No Respiratory: No Radiation Therapy: No Sleep Apnea: No Thyroid Disease: No : 6 Para: 3 Miscarriage: 3 Past Surgical History Abdominal Surgery: Yes (APPENDECTOMY) Appendectomy: Yes Eye Surgery: Yes (CATARACT) Gynecologic Surgery: Yes (HYSTERECTOMY) Hysterectomy: Yes Oral Surgery: Yes (TONSILLECTOMY AND TEETH EXTRACTIONS) Pacemaker: No Tonsillectomy: Yes Other Surgery: Yes (ablation 07/20/16) Social History Alcohol Use: No Tobacco Use: No (07/19 PPD QUIT 1997) Substance Use: No Allergies-Medications (Allergen,Severity, Reaction): Coded Allergies: Shellfish (Verified Allergy, Severe, Anaphylaxis, 09/15/16) Reported Meds & Prescriptions Reported Meds & Active Scripts Active Reported Furosemide 20 Mg Tab 20 Mg PO DAILY Cardizem CD 24 HR (Diltiazem CD 24 HR) 240 Mg Caper 240 Mg PO DAILY Flexeril (Cyclobenzaprine HCl) 5 Mg Tab 5 Mg PO TID Pravastatin 10 Mg Tab 10 Mg PO HS Oxybutynin ER 24 HR (Oxybutynin Chloride) 5 Mg Tab 5 Mg PO DAILY Eliquis (Apixaban) 5 Mg Tab 5 Mg PO BID Review of Systems Except as stated in HPI: all other systems reviewed are Neg General / Constitutional: No: Fever HENT: No: Headaches, Neck Pain Cardiovascular: No: Chest Pain or Discomfort Respiratory: No: Shortness of Breath Gastrointestinal: No: Nausea, Vomiting, Abdominal Pain Musculoskeletal: Positive: Limited ROM, Pain, Other (mild lower back pain) Neurologic: No: Paresthesia, Sensory Disturbance Physical Exam Narrative GENERAL: Awake, alert, pleasant 82-year-old female who appears her stated age and is in no acute respiratory distress. SKIN: Focused skin assessment warm/dry. HEAD: Atraumatic. Normocephalic. EYES: Pupils equal and round. No scleral icterus. No injection or drainage. ENT: No nasal bleeding or discharge. Mucous membranes pink and moist. NECK: Trachea midline. No JVD. CARDIOVASCULAR: Irregularly irregular, tachycardic with a heart rate of 100. RESPIRATORY: No accessory muscle use. Clear to auscultation. Breath sounds equal bilaterally. GASTROINTESTINAL: Abdomen soft, non-tender, nondistended. No rebound tenderness. MUSCULOSKELETAL: Pain over the lateral left hip and left inguinal region. Limited ability to flex the hip and knee secondary to pain. Positive distal pulses. Superficial varicosities of the feet noted. Back: No tenderness of the mid thoracic or lumbar region. Mild tenderness of the left sacroiliac. NEUROLOGICAL: Awake and alert. No obvious cranial nerve deficits. Motor grossly within normal limits. Normal speech. PSYCHIATRIC: Appropriate mood and affect; insight and judgment normal. Data Data Last Documented VS Vital Signs Date Time Temp Pulse Resp B/P Pulse Ox O2 Delivery O2 Flow Rate FiO2 01/13/17 07:46 98 Room Air 01/13/17 07:46 97 17 01/13/17 07:43 98.2 136/63 Orders Electrocardiogram (01/13/17 07:46) Complete Blood Count With Diff (01/13/17 07:46) Comprehensive Metabolic Panel (01/13/17 07:46) Prothrombin Time / Inr (Pt) (01/13/17 07:46) Act Partial Throm Time (Ptt) (01/13/17 07:46) Urinalysis - C+S If Indicated (01/13/17 07:46) Type And Screen (01/13/17 07:46) Chest, Single Ap (01/13/17 07:46) Hip, Uni(Ap&Lat) W Ap Pelvis (01/13/17 07:46) Iv Access Insert/Monitor (01/13/17 07:46) Oximetry (01/13/17 07:46) Ecg Monitoring (01/13/17 07:46) Morphine Inj (Morphine Inj) (01/13/17 08:00) Ondansetron Inj (Zofran Inj) (01/13/17 08:00) Sodium Chloride 0.9% Flush (Ns Flush) (01/13/17 08:00) Sodium Chlor 0.9% 1000 Ml Inj (Ns 1000 M (01/13/17 08:00) Ct Pelvis W/O Iv Contrast (01/13/17 ) Admit Order (Ed Use Only) (01/13/17 12:10) Labs Laboratory Tests Test 01/13/17 01/13/17 07:55 08:50 White Blood Count 8.0 TH/MM3 Red Blood Count 4.52 MIL/MM3 Hemoglobin 13.9 GM/DL Hematocrit 39.9 % Mean Corpuscular Volume 88.2 FL Mean Corpuscular Hemoglobin 30.7 PG Mean Corpuscular Hemoglobin 34.8 % Concent Red Cell Distribution Width 13.9 % Platelet Count 226 TH/MM3 Mean Platelet Volume 8.0 FL Neutrophils (%) (Auto) 82.0 % Lymphocytes (%) (Auto) 7.7 % Monocytes (%) (Auto) 7.8 % Eosinophils (%) (Auto) 1.4 % Basophils (%) (Auto) 1.1 % Neutrophils # (Auto) 6.6 TH/MM3 Lymphocytes # (Auto) 0.6 TH/MM3 Monocytes # (Auto) 0.6 TH/MM3 Eosinophils # (Auto) 0.1 TH/MM3 Basophils # (Auto) 0.1 TH/MM3 CBC Comment DIFF FINAL Differential Comment Prothrombin Time 11.0 SEC Prothromb Time International 1.0 RATIO Ratio Activated Partial 27.2 SEC Thromboplast Time Sodium Level 137 MEQ/L Potassium Level 3.4 MEQ/L Chloride Level 104 MEQ/L Carbon Dioxide Level 24.1 MEQ/L Anion Gap 9 MEQ/L Blood Urea Nitrogen 22 MG/DL Creatinine 0.87 MG/DL Estimat Glomerular Filtration 62 ML/MIN Rate Random Glucose 104 MG/DL Calcium Level 9.2 MG/DL Total Bilirubin 0.9 MG/DL Aspartate Amino Transf 23 U/L (AST/SGOT) Alanine Aminotransferase 16 U/L (ALT/SGPT) Alkaline Phosphatase 101 U/L Total Protein 7.8 GM/DL Albumin 3.7 GM/DL Blood Type A NEGATIVE Antibody Screen NEGATIVE MDM Medical Decision Making Medical Screen Exam Complete: Yes Emergency Medical Condition: Yes Medical Record Reviewed: Yes Interpretation(s) EKG reveals atrial fibrillation with RVR. Nonspecific ST-T wave changes. Last Impressions Hip and Pelvis X-Ray 01/13/17745 Signed Impressions: Service Date/Time: December 08:37 - CONCLUSION: No acute bony process Delvin Hinds MD Chest X-Ray 01/13/17745 Signed Impressions: Service Date/Time: December 08:33 - CONCLUSION: Stable elevation of the right diaphragm. Diffuse interstitial prominence similar to prior. Delvin Hinds MD Laboratory Tests Test 01/13/17 01/13/17 07:55 08:50 White Blood Count 8.0 TH/MM3 Red Blood Count 4.52 MIL/MM3 Hemoglobin 13.9 GM/DL Hematocrit 39.9 % Mean Corpuscular Volume 88.2 FL Mean Corpuscular Hemoglobin 30.7 PG Mean Corpuscular Hemoglobin 34.8 % Concent Red Cell Distribution Width 13.9 % Platelet Count 226 TH/MM3 Mean Platelet Volume 8.0 FL Neutrophils (%) (Auto) 82.0 % Lymphocytes (%) (Auto) 7.7 % Monocytes (%) (Auto) 7.8 % Eosinophils (%) (Auto) 1.4 % Basophils (%) (Auto) 1.1 % Neutrophils # (Auto) 6.6 TH/MM3 Lymphocytes # (Auto) 0.6 TH/MM3 Monocytes # (Auto) 0.6 TH/MM3 Eosinophils # (Auto) 0.1 TH/MM3 Basophils # (Auto) 0.1 TH/MM3 CBC Comment DIFF FINAL Differential Comment Prothrombin Time 11.0 SEC Prothromb Time International 1.0 RATIO Ratio Activated Partial 27.2 SEC Thromboplast Time Sodium Level 137 MEQ/L Potassium Level 3.4 MEQ/L Chloride Level 104 MEQ/L Carbon Dioxide Level 24.1 MEQ/L Anion Gap 9 MEQ/L Blood Urea Nitrogen 22 MG/DL Creatinine 0.87 MG/DL Estimat Glomerular Filtration 62 ML/MIN Rate Random Glucose 104 MG/DL Calcium Level 9.2 MG/DL Total Bilirubin 0.9 MG/DL Aspartate Amino Transf 23 U/L (AST/SGOT) Alanine Aminotransferase 16 U/L (ALT/SGPT) Alkaline Phosphatase 101 U/L Total Protein 7.8 GM/DL Albumin 3.7 GM/DL Blood Type A NEGATIVE Antibody Screen NEGATIVE Differential Diagnosis Differential diagnosis includes fracture, dislocation, hip fracture, pelvic fracture, back pain with radiculopathy, neuralgia, pathologic fracture, DVT, strain, sprain. Narrative Course IV was established, labs are drawn and sent, and the patient was placed on cardiac telemetry monitoring and continuous pulse oximetry monitoring. EKG was ordered and interpreted. The patient was administered morphine, Zofran, and placed on IV fluids. X-ray of the pelvis and left hip were obtained. X-rays are unremarkable, patient still has difficulty moving the left leg and bear weight, therefore, noncontrast CT of the pelvis was ordered. CT of the abdomen and pelvis reveals severe degenerative changes of the lumbar spine, however, the pelvis and hip are unremarkable. Patient is reevaluated, she is unable to flex the left hip, transition, or bear weight. The patient lives alone and is unable to perform her ADLs. Therefore, patient will be 23 hour observation, may benefit from pain management, possibly consultation orthopedics, and physical therapy evaluation. The patient's primary physician is Dr. Jason Andrade , therefore, [facility] were paged for 23 hour observation. Physician Communication Physician Communication [facility] were paged for 23 hour observation. I discussed the patient Dr. Solorzano who agrees with 23 hour observation. Diagnosis Primary Impression: Pelvic pain in female Additional Impressions: Left hip pain Inability to ambulate due to hip Admitting Information Admitting Physician Requests: Observation Condition: Stable Randall Cui MD Jan 13, 2017 07:52
[2017-01-13] MEDS ORDERED: FURO20TA PO (07:59)
[2017-01-13] MEDS ORDERED: CARD240C6 PO (07:59)
[2017-01-13] MEDS ORDERED: CYCL5TAB PO (07:59)
[2017-01-13] MEDS ORDERED: MORPHINE SULFATE 4 MG/ML INJ IV PUSH ONE (08:00)
[2017-01-13] MEDS ORDERED: SODIUM CHLOR 0.9% 1000 ML INJ 1,000 ML IV SCH (08:00)
[2017-01-13] MEDS ORDERED: ONDANSETRON HCL 4 MG/2 ML VIAL IVP ONE (08:00)
[2017-01-13] MEDS ORDERED: SODIUM CHLORIDE 0.9% FLUSH 10 ML FLUSH IVF PRN (08:00)
[2017-01-13 08:34] LABS: AUTOMATED NEUTROPHIL # 6.6 TH/MM3 (1.8-7.7); BASOPHIL # 0.1 TH/MM3 (0-0.2); BASOPHIL % 1.1 % (0.0-2.0); EOSINOPHIL # 0.1 TH/MM3 (0-0.4); EOSINOPHIL % 1.4 % (0.0-4.0); HEMATOCRIT 39.9 % (35.0-46.0); HEMO FLAGS DIFF FINAL; LYMPH % 7.7 % (9.0-44.0); LYMPHOCYTE # 0.6 TH/MM3 (1.0-4.8); MEAN CELL VOLUME 88.2 FL (80.0-100.0); MEAN CORPUSCULAR HEMOGLOBIN 30.7 PG (27.0-34.0); MEAN CORPUSCULAR HGB CONC 34.8 % (32.0-36.0); MONO % 7.8 % (0.0-8.0); PLATELET COUNT 226 TH/MM3 (150-450); RED BLOOD COUNT 4.52 MIL/MM3 (4.00-5.30); RED CELL DISTRIBUTION WIDTH 13.9 % (11.6-17.2)
[2017-01-13 08:40] LABS: APTT (PATIENT) 27.2 SEC (24.3-30.1)
[2017-01-13 08:41] LABS: ANION GAP 9 MEQ/L (5-15); AST (GOT) 23 U/L (15-37); BICARBONATE 24.1 MEQ/L (21.0-32.0); BLOOD UREA NITROGEN 22 MG/DL (7-18); CHLORIDE 104 MEQ/L (98-107); GLOMERULAR FILTRATION RATE 62 ML/MIN (>89); POTASSIUM 3.4 MEQ/L (3.5-5.1); SODIUM (NA) 137 MEQ/L (136-145)
[2017-01-13 08:42] LABS: ALT (GPT) 16 U/L (10-53)
[2017-01-13 08:44] LABS: ALKALINE PHOSPHATASE 101 U/L (45-117); TOTAL BILIRUBIN ADULT 0.9 MG/DL (0.2-1.0)
--- NOTE | 2017-01-13 09:09 | RADRPT ---
EXAM DATE/TIME: 01/13/2017 08:33 [facility] COMPARISON: CHEST SINGLE AP, June 21, 2014, 5:33. INDICATIONS : Weakness, short of breath, left hip pain since last night, denies trauma MEDICAL HISTORY : Cardiovascular disease. Hypertension. SURGICAL HISTORY : Appendectomy. Hysterectomy. bladder stimulator ENCOUNTER: Initial ACUITY: 1 day PAIN SCORE: 0/10 LOCATION: Bilateral chest FINDINGS: There is moderate elevation of the right diaphragm. Coarse interstitial thickening present through ou t both lungs. Cardiac contours are grossly stable. CONCLUSION: Stable elevation of the right diaphragm. Diffuse interstitial prominence similar to prior. Delvin Hinds MD on January 13, 2017 at 9:06 Board Certified Radiologist. This report was verified electronically.
--- NOTE | 2017-01-13 09:17 | RADRPT ---
EXAM DATE/TIME: 01/13/2017 08:37 [facility] COMPARISON: No previous studies available for comparison. INDICATIONS : Pain in left hip and groin since last night, denies trauma MEDICAL HISTORY : Hypertension. Cardiovascular disease. SURGICAL HISTORY : Appendectomy. Hysterectomy. bladder stimulator ENCOUNTER: Initial ACUITY: 1 day PAIN SCORE: 10/10 LOCATION: Left hip FINDINGS: Pelvic stimulator is present with control unit of the left iliac crest. The hips are symmetric with d egenerative changes. No evidence of fracture or dislocation. No displaced pelvic fracture is identifi ed. Multiple pelvic phleboliths are seen in buttock granulomas are noted on the right. CONCLUSION: No acute bony process Delvin Hinds MD on January 13, 2017 at 9:14 Board Certified Radiologist. This report was verified electronically.
--- NOTE | 2017-01-13 11:52 | RADRPT ---
EXAM DATE/TIME: 01/13/2017 11:15 [facility] COMPARISON: No previous studies available for comparison. INDICATIONS : Left groin and hip pain. ORAL CONTRAST: No oral contrast ingested. RADIATION DOSE: 23.44 CTDIvol (mGy) MEDICAL HISTORY : Cardiovascular disease. Chronic obstructive pulmonary disease. Hypertension. SURGICAL HISTORY : Appendectomy. Hysterectomy. ENCOUNTER: Initial ACUITY: 1 day PAIN SCALE: 6/10 LOCATION: Left pelvis TECHNIQUE: Volumetric scanning of the pelvis was performed. Using automated exposure control and adjustment of the mA and/or kV according to patient size, radiation dose was kept as low as reasonably achievable t o obtain optimal diagnostic quality images. DICOM format image data is available electronically for review and comparison. FINDINGS: BOWEL/MESENTERY: The visualized small and large bowel demonstrate no acute abnormality. There is no free fluid. BLADDER: There is no wall thickening or mass. RETROPERITONEUM: There is no aneurysm or lymphadenopathy. REPRODUCTIVE: Uterus has been removed. There is no evidence of central pelvic or adnexal mass or cyst. There are no abnormal fluid collections. INGUINAL: There is no lymphadenopathy or hernia. MUSCULOSKELETAL: Months. Degenerative disc disease is present in the lower lumbar spine. Mild arthropathy is identifie d at both sacroiliac joints. Bony pelvis and hips are intact. CONCLUSION: No apparent cause for the patient's left groin and hip pain. 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 Status post hysterectomy. No soft tissue abnormalities. Liam Trimble MD on January 13, 2017 at 11:46 Board Certified Radiologist. This report was verified electronically.
[2017-01-13 12:50] VITALS: BP 118/58; PULSE 91; RESP 16; O2SAT 95
--- NOTE | 2017-01-13 13:10 | HHI.HP ---
cc: Jason Ellison MD [facility] Service [facility] Primary Care Physician Jason Ellison MD Admission Diagnosis left hip/pelvis pain, unable to ambulate Diagnoses: (1) Pelvic pain in female (2) Left hip pain (3) Inability to ambulate due to hip (4) HLD (hyperlipidemia) (5) Atrial fibrillation (6) HTN (hypertension) (7) GERD (gastroesophageal reflux disease) Chief Complaint: Left groin pain Travel History International Travel<30 Days: No Contact w/Intl Traveler <30 Da: No Traveled to Known Affected Are: No History of Present Illness The patient is an 82-year-old female who presented to the emergency department with complaint of left hip and groin pain that started last night and has been getting worse. She is unable to ambulate because of the pain. She denies numbness, or seizures, weakness. Denies any falls, trauma. No other complaints at this time. Review of Systems Constitutional: DENIES: Fever, Chills, Night Sweats Eyes: DENIES: Blurred vision, Vision loss Ears, nose, mouth, throat: DENIES: Hearing loss Respiratory: DENIES: Cough, Wheezing, Sputum production, Shortness of breath Cardiovascular: COMPLAINS OF: Dyspnea on Exertion (chronic, unchanged.), DENIES: Chest pain, Palpitations, Lower Extremity Edema Gastrointestinal: DENIES: Abdominal pain, Constipation, Diarrhea, Nausea, Vomiting Genitourinary: COMPLAINS OF: Urinary incontinence (chronic), DENIES: Urinary frequency, Urgency, Hematuria, Dysuria, Nocturia Musculoskeletal: COMPLAINS OF: Joint pain, DENIES: Muscle aches Integumentary: DENIES: Pruritus, Rash Hematologic/lymphatic: DENIES: Bruising Neurologic: DENIES: Headache Past Family Social History Past Medical History Atrial fibrillation Rheumatoid arthritis Hypertension Hyperlipidemia Past Surgical History Cataract surgery Appendectomy Tonsillectomy Tooth extraction Hysterectomy Cardiac ablation Reported Medications Furosemide 20 Mg Tab 20 Mg PO DAILY Cardizem CD 24 HR (Diltiazem CD 24 HR) 240 Mg Caper 240 Mg PO DAILY Flexeril (Cyclobenzaprine HCl) 5 Mg Tab 5 Mg PO TID Pravastatin 10 Mg Tab 10 Mg PO HS Oxybutynin ER 24 HR (Oxybutynin Chloride) 5 Mg Tab 5 Mg PO DAILY Eliquis (Apixaban) 5 Mg Tab 5 Mg PO BID Allergies: Coded Allergies: Shellfish (Verified Allergy, Severe, Anaphylaxis, 09/15/16) Family History Heart disease Cancer Social History Quit smoking "many years ago". Denies alcohol or illicit drug use. Physical Exam Vital Signs Vital Signs Date Time Temp Pulse Resp B/P Pulse Ox O2 Delivery O2 Flow Rate FiO2 01/13/17 12:50 91 16 118/58 95 Room Air 01/13/17 07:46 98 Room Air 01/13/17 07:46 97 17 01/13/17 07:43 98.2 82 15 136/63 99 Physical Exam GENERAL: Elderly female in no acute distress. HEENT: Normocephalic, atraumatic. Pupils equal, round and reactive. Extraocular movements intact. No scleral icterus. No injection or drainage. Oropharynx is clear. Mucous membranes are moist. CARDIOVASCULAR: Regular rate and rhythm without murmurs, gallops, or rubs. RESPIRATORY: Clear to auscultation. No wheezes, rales, or rhonchi. Breathing is non-labored. GASTROINTESTINAL: Abdomen soft, non-tender, nondistended. EXTREMITIES: No lower extremity edema. No calf tenderness. Patient unable to flex her left hip secondary to pain. Normal strength on flexion/extension of the ankles. PSYCH: Alert and oriented x 3. Laboratory Laboratory Tests Test 01/13/17 01/13/17 07:55 08:50 White Blood Count 8.0 Red Blood Count 4.52 Hemoglobin 13.9 Hematocrit 39.9 Mean Corpuscular Volume 88.2 Mean Corpuscular Hemoglobin 30.7 Mean Corpuscular Hemoglobin 34.8 Concent Red Cell Distribution Width 13.9 Platelet Count 226 Mean Platelet Volume 8.0 Neutrophils (%) (Auto) 82.0 Lymphocytes (%) (Auto) 7.7 Monocytes (%) (Auto) 7.8 Eosinophils (%) (Auto) 1.4 Basophils (%) (Auto) 1.1 Neutrophils # (Auto) 6.6 Lymphocytes # (Auto) 0.6 Monocytes # (Auto) 0.6 Eosinophils # (Auto) 0.1 Basophils # (Auto) 0.1 CBC Comment DIFF FINAL Differential Comment Prothrombin Time 11.0 Prothromb Time International 1.0 Ratio Activated Partial 27.2 Thromboplast Time Sodium Level 137 Potassium Level 3.4 Chloride Level 104 Carbon Dioxide Level 24.1 Anion Gap 9 Blood Urea Nitrogen 22 Creatinine 0.87 Estimat Glomerular Filtration 62 Rate Random Glucose 104 Calcium Level 9.2 Total Bilirubin 0.9 Aspartate Amino Transf 23 (AST/SGOT) Alanine Aminotransferase 16 (ALT/SGPT) Alkaline Phosphatase 101 Total Protein 7.8 Albumin 3.7 Blood Type A NEGATIVE Antibody Screen NEGATIVE Result Diagram: 01/13/17 0755 01/13/17 0755 Imaging Last Impressions Hip and Pelvis X-Ray 01/13/17 0746 Signed Impressions: Service Date/Time: December 08:37 - CONCLUSION: No acute bony process Delvin Hinds MD Chest X-Ray 01/13/1746 Signed Impressions: Service Date/Time: December 08:33 - CONCLUSION: Stable elevation of the right diaphragm. Diffuse interstitial prominence similar to prior. Delvin Hinds MD Pelvis CT 01/13/17 0000 Signed Impressions: Service Date/Time: December 11:15 - CONCLUSION: No apparent cause for the patient's left groin and hip pain. 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 Status post hysterectomy. No soft tissue abnormalities. Liam Trimble MD Assessment and Plan Assessment and Plan 1. Left hip/groin pain, inability to ambulate: Continue pain control. Consult physical therapy. Consider orthopedic surgery consultation. Imaging shows no evidence of fracture. 2. Atrial fibrillation: Rate is controlled. Continue Cardizem, Eliquis. 3. Hyperlipidemia: Continue statin. 4. Chronic urinary incontinence, overactive bladder: Continue oxybutynin. 5. DVT prophylaxis: Eliquis. Mark Anthony Solorzano MD Jan 13, 2017 13:10
[2017-01-13] MEDS ORDERED: NALOXONE HCL 0.4 MG/ML AMP IV PRN (13:15)
[2017-01-13] MEDS ORDERED: LACTULOSE SYRUP 20 GM/30 ML CUP PO PRN (13:15)
[2017-01-13] MEDS: NS + KCL 20 MEQ INJ 1,000 ML IV SCH (13:15)
[2017-01-13] MEDS ORDERED: ACETAMINOPHEN/HYDROcodone 325 MG/5 MG TAB PO PRN (13:15)
[2017-01-13] MEDS ORDERED: SODIUM CHLORIDE 0.9% FLUSH 10 ML FLUSH IV FLUSH PRN (13:15)
[2017-01-13] MEDS ORDERED: BISACODYL 10 MG SUPP RECTAL PRN (13:15)
[2017-01-13] MEDS: POTASSIUM CHLORIDE 20 MEQ CONTROLLED RELEASE TAB PO SCH (13:15)
[2017-01-13] MEDS ORDERED: ONDANSETRON HCL 4 MG/2 ML VIAL IVP PRN (13:15)
[2017-01-13] MEDS ORDERED: ACETAMINOPHEN 325 MG TAB PO PRN (13:15)
[2017-01-13] MEDS ORDERED: SENNOSIDES 8.6 MG TAB PO PRN (13:15)
[2017-01-13] MEDS ORDERED: MAGNESIUM HYDROXIDE SUSP 30 ML CUP PO PRN (13:15)
[2017-01-13] MEDS ORDERED: MORPHINE SULFATE 4 MG/ML INJ IV PRN (13:15)
--- NOTE | 2017-01-13 15:35 | EKG ---
Date Performed: 01/13/2017 Time Performed: 08:06:11 PTAGE: 82 years EKG: ATRIAL FIBRILLATION WITH RAPID VENTRICULAR RESPONSE BORDERLINE LEFT AXIS DEVIATION NONSPECI FIC ST & T-WAVE ABNORMALITY ABNORMAL ECG PREVIOUS TRACING : 09/16/2016 09.44 DOCTOR: Martin Marshall Interpretating Date/Time 01/13/2017 15:34:10
[2017-01-13 16:25] VITALS: BP 140/63; PULSE 96; RESP 20; TEMP 96.7; O2SAT 92
[2017-01-13 16:44] LABS: BACTERIA, URINE RARE /hpf; BLOOD, URINE NEG (NEG); COMMENT (UR) CATH-CULTURE IND; CULTURE IF INDICATED CATH CULTURE IND; GLUCOSE,URINE NEG (NEG); KETONE, URINE NEG (NEG); NITRITE,URINE NEG (NEG); PH, URINE 6.5 (5.0-8.5); SQUAMOUS EPITHELIAL CELL URINE 2 /hpf (0-5); URINE COLOR YELLOW (YELLW/STRAW)
[2017-01-13] MEDS: CYCLOBENZAPRINE HCL 10 MG TAB PO SCH (17:41)
[2017-01-13 20:00] VITALS: BP 130/58; PULSE 91; PULSE 93; RESP 16; TEMP 96.7; O2SAT 94
[2017-01-13] MEDS: APIXABAN 5 MG TABLET PO SCH (20:45)
[2017-01-13] MEDS: DOCUSATE SODIUM 50 MG/SENNA 8.6 MG TAB PO SCH (20:45)
[2017-01-13] MEDS: SODIUM CHLORIDE 0.9% FLUSH 10 ML FLUSH IV FLUSH SCH (20:45)
[2017-01-13] MEDS ORDERED: PRAVASTATIN SOD 10 MG TAB PO SCH (21:00)
[2017-01-14] VITALS (11 sets, daily range): BP systolic 94–118; BP diastolic 54–82; PULSE 80–106; RESP 18–19; TEMP 95.3–97.6; O2SAT 91–97
[2017-01-14 07:49] LABS: POTASSIUM 4.4 MEQ/L (3.5-5.1)
[2017-01-14] MEDS: SODIUM CHLORIDE 0.9% FLUSH 10 ML FLUSH IV FLUSH SCH (09:00)
[2017-01-14] MEDS ORDERED: FUROSEMIDE 20 MG TAB PO SCH (09:00)
[2017-01-14] MEDS ORDERED: TOLTERODINE TARTRATE 2 MG CAP LA PO SCH (09:00)
[2017-01-14] MEDS ORDERED: DILTIAZEM-CD 240 MG CAP ER PO SCH (09:00)
[2017-01-14] MEDS: APIXABAN 5 MG TABLET PO SCH (09:10)
[2017-01-14] MEDS: CYCLOBENZAPRINE HCL 10 MG TAB PO SCH ×3 (09:10→15:36)
[2017-01-14] MEDS: POTASSIUM CHLORIDE 20 MEQ CONTROLLED RELEASE TAB PO SCH (09:10)
[2017-01-14] MEDS: DOCUSATE SODIUM 50 MG/SENNA 8.6 MG TAB PO SCH (09:10)
[2017-01-14] MEDS: NS + KCL 20 MEQ INJ 1,000 ML IV SCH (09:13)
[2017-01-14] MEDS: ACETAMINOPHEN/HYDROcodone 325 MG/7.5 MG TAB PO PRN ×2 (10:05→15:37)
[2017-01-14] MEDS ORDERED: HYDR-3516 PO (14:16)
[2017-01-14] MEDS ORDERED: POTA20TA5 PO (14:16)
--- NOTE | 2017-01-14 14:16 | HHI.DCPOC ---
Discharge Care Plan Diagnosis: (1) Inability to ambulate due to hip (2) HLD (hyperlipidemia) (3) HTN (hypertension) (4) GERD (gastroesophageal reflux disease) (5) Atrial fibrillation Goals to Promote Your Health * To prevent worsening of your condition and complications * To maintain your health at the optimal level Directions to Meet Your Goals Take your medications as prescribed Follow your dietary instruction Follow activity as directed Keep your appointments as scheduled Take your immunizations and boosters as scheduled If your symptoms worsen call your PCP, if no PCP go to Urgent Care Center or Emergency Room Smoking is Dangerous to Your Health. Avoid second hand smoke Call the 24-hour hour crisis hotline for domestic abuse at Mark Anthony Solorzano MD Jan 14, 2017 14:16
--- NOTE | 2017-01-14 14:17 | HHI.FF ---
Face to Face Verification Diagnosis: (1) Inability to ambulate due to hip (2) Atrial fibrillation Physical Therapy Order: Evaluate and Treat Home Health Nursing Order: Nursing assessment with vital signs I have seen patient Chastity Peraza on 01/14/17. My clinical findings support the need for the requested home health care services because: High risk of falls I certify that my clinical findings support that this patient is homebound because: Unsteady gait/balance Mark Anthony Solorzano MD Jan 14, 2017 14:17
[2017-01-14] MEDS ORDERED: WALKER WHEELS/F1 MIS (14:18)
--- NOTE | 2017-01-14 14:22 | HHI.PR ---
Subjective Remarks Follow up inability to ambulate. Patient states that she feels much better today. Pain is much improved. She ambulated a short distance with PT. She wants to go home. Objective Vitals Vital Signs Date Time Temp Pulse Resp B/P Pulse Ox O2 Delivery O2 Flow Rate FiO2 01/14/17 13:41 80 01/14/17 11:56 106 01/14/17 11:48 95.6 100 19 107/82 94 01/14/17 09:14 87 97 01/14/17 07:40 95.3 98 19 112/62 91 01/14/17 06:46 101 01/14/17 04:00 95.9 102 18 118/68 93 01/14/17 00:00 97.6 95 18 94/54 94 01/13/17 20:00 96.7 91 16 130/58 94 01/13/17 20:00 93 01/13/17 16:25 96.7 96 20 140/63 92 I/O 01/13/17 01/13/17 01/13/17 01/14/17 01/14/17 01/14/17 07:00 15:00 23:00 07:00 15:00 23:00 Intake Total 934 ml 632 ml 268 ml Balance 934 ml 632 ml 268 ml Intake Oral 240 ml 240 ml IV Total 694 ml 392 ml 268 ml # Voids 2 1 # Bowel Movements 0 0 Result Diagram: 01/13/17 0755 01/14/17 0658 Imaging Last Impressions Hip and Pelvis X-Ray 01/13/17 0746 Signed Impressions: Service Date/Time: December 08:37 - CONCLUSION: No acute bony process Delvin Hinds MD Chest X-Ray 01/13/17 0746 Signed Impressions: Service Date/Time: December 08:33 - CONCLUSION: Stable elevation of the right diaphragm. Diffuse interstitial prominence similar to prior. Delvin Hinds MD Pelvis CT 01/13/17 0000 Signed Impressions: Service Date/Time: December 11:15 - CONCLUSION: No apparent cause for the patient's left groin and hip pain. 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 Status post hysterectomy. No soft tissue abnormalities. Liam Trimble MD Objective Remarks General: Elderly female in no acute distress. Heart: Regular rate and rhythm. No murmur. Lungs: Clear to auscultation bilaterally. No wheezes, rales, or rhonchi. Breathing is nonlabored. Abdomen: Soft, nontender, nondistended. Extremities: No lower extremity edema. Psych: Alert and oriented. Procedures None Urinary Catheter: No Vascular Central Line Catheter: No A/P Problem List: (1) Pelvic pain in female ICD Code: R10.2 Status: Acute (2) Left hip pain ICD Code: M25.552 Status: Acute (3) Inability to ambulate due to hip ICD Code: R26.2 Status: Acute (4) HLD (hyperlipidemia) ICD Code: E78.5 Status: Chronic (5) Atrial fibrillation ICD Code: I48.91 Status: Chronic (6) HTN (hypertension) ICD Code: I10 Status: Chronic (7) GERD (gastroesophageal reflux disease) ICD Code: K21.9 Status: Chronic Assessment and Plan 1. Left hip/groin pain, inability to ambulate: Continue pain control. Pain has improved significantly. Physical therapy recommended rehabilitation, but patient wants to go home. She is requesting discharge home with home health care. 2. Atrial fibrillation: Rate is controlled. Continue Cardizem, Eliquis. 3. Hyperlipidemia: Continue statin. 4. Chronic urinary incontinence, overactive bladder: Continue oxybutynin. 5. DVT prophylaxis: Eliquis. Discharge Planning Discharge home in stable condition. Case management to arrange home health for nursing and physical therapy. Patient states that she will be going to stay with her sister, who will be able to help her get around the house. Heart healthy diet. Activity as tolerated. Mark Anthony Solorzano MD Jan 14, 2017 14:22
== END 2017-01-14 19:01 | disposition home or self-care (01) ==
LOC: NEPE 07:37 → NEDA 12:12 → N06B 16:08
PROVIDERS: ADMIT Family Medicine; ATTEND Family Medicine
DX: M25.552 Pain in left hip (principal); R10.2 Pelvic and perineal pain; I48.91 Unspecified atrial fibrillation; E78.5 Hyperlipidemia, unspecified; N32.81 Overactive bladder; R32 Unspecified urinary incontinence; R00.0 Tachycardia, unspecified; R94.31 Abnormal electrocardiogram [ECG] [EKG]; R91.8 Other nonspecific abnormal finding of lung field; R06.02 Shortness of breath; R53.1 Weakness; R06.00 Dyspnea, unspecified; I10 Essential (primary) hypertension; K21.9 Gastro-esophageal reflux disease without esophagitis; M06.9 Rheumatoid arthritis, unspecified; J44.9 Chronic obstructive pulmonary disease, unspecified; M51.36 Other intervertebral disc degeneration, lumbar region; F32.9 Major depressive disorder, single episode, unspecified; Z79.899 Other long term (current) drug therapy; Z79.01 Long term (current) use of anticoagulants; Z87.891 Personal history of nicotine dependence
CPT/HCPCS: 71010; 72192; 73502; 80048; 80053; 81001; 85025; 85610; 85730; 86850; 86900; 86901; 87086; 93005; 96374; 96375; 97162; 99285; G0378; G8987; G8988; J2270; J2405; J3480; J7030

== ENCOUNTER 2017-03-14 16:46 | Inpatient (IN) | payer MEDICARE, BC ==
[~2017-03-14] VITALS: Ht 149.9 cm; Wt 73.8 kg
[~2017-03-14 16:46] MED LIST changes: -AMIO200T PO; +CARD240C6 PO; +CYCL5TAB PO; -CYMB60CA PO; +FURO20TA PO; +HYDR-3516 PO; -LISI-519 PO; -LYRI50CA PO; -OMEP20TA PO; +POTA20TA5 PO; +WALKER WHEELS/F1 MIS
[2017-03-14 16:53] VITALS: BP 132/74; PULSE 98; RESP 20; TEMP 98.4; O2SAT 98
[2017-03-14] MEDS ORDERED: CYCLOBENZAPRINE HCL 10 MG TAB PO ONE (18:30)
[2017-03-14] MEDS ORDERED: MORPHINE SULFATE 4 MG/ML INJ IM ONE (18:30)
--- NOTE | 2017-03-14 18:51 | PD ---
HPI Chief Complaint: Pain: Acute or Chronic Time Seen by Provider: 18:10 Travel History International Travel<30 days: No Contact w/Intl Traveler<30days: No Traveled to known affect area: No History of Present Illness HPI Patient is an 82-year-old female comes in complaining of right hip pain. She says it started last night while she is getting ready for bed. She had a similar episode a few weeks ago on the left side. She denies any trauma. She denies any recent falls. She says the pain goes from her right hip down to her knee. She has not had any issues with urination. She has not noticed redness or swelling to the area. She has a lot of pain with movement. She has not taken anything at home for pain. PFSH Past Medical History Hx Anticoagulant Therapy: Yes Arthritis: Yes (RA) Asthma: No Atrial Fibrillation: Yes Blood Disorders: No Depression: Yes Heart Rhythm Problems: Yes (afib) Cancer: No Cardiovascular Problems: Yes (ablation times 5) High Cholesterol: No Chemotherapy: No Chest Pain: No Congestive Heart Failure: No COPD: Yes Diabetes: No Diminished Hearing: No Endocrine: No Genitourinary: Yes (urgency) Hypertension: Yes (controlled) Immune Disorder: No Implanted Vascular Access Dvce: Yes Musculoskeletal: No Neurologic: No Psychiatric: No Reproductive: Yes (hysterectomy) Respiratory: Yes Radiation Therapy: No Sleep Apnea: No Thyroid Disease: No : 6 Para: 3 Miscarriage: 3 Past Surgical History Abdominal Surgery: Yes (APPENDECTOMY) Appendectomy: Yes Body Medical Devices: bladder device Eye Surgery: Yes (CATARACT) Gynecologic Surgery: Yes (HYSTERECTOMY) Hysterectomy: Yes Oral Surgery: Yes (TONSILLECTOMY AND TEETH EXTRACTIONS) Pacemaker: No Tonsillectomy: Yes Other Surgery: Yes (ablation 07/20/16) Social History Alcohol Use: No Tobacco Use: No (07/19 PPD QUIT 1997) Substance Use: No Allergies-Medications (Allergen,Severity, Reaction): Coded Allergies: shellfish derived (Unverified Allergy, Severe, Anaphylaxis, 03/02/17) Reported Meds & Prescriptions Reported Meds & Active Scripts Active Lortab (Hydrocodone-Acetaminophen) 5-325 Mg Tab 1 Tab PO Q6H PRN Potassium Chloride Microencaps 20 Meq Tab 20 Meq PO DAILY Hydrocodone-Acetaminophen 5-325 mg Tab 1 Tab PO Q4H PRN Reported Cardizem CD 24 HR (Diltiazem CD 24 HR) 240 Mg Caper 240 Mg PO DAILY Pravastatin 10 Mg Tab 10 Mg PO HS Oxybutynin ER 24 HR (Oxybutynin Chloride) 5 Mg Tab 5 Mg PO DAILY Eliquis (Apixaban) 5 Mg Tab 5 Mg PO BID Review of Systems General / Constitutional: No: Fever, Chills Eyes: No: Blurred Vision HENT: No: Headaches, Lightheadedness Cardiovascular: No: Chest Pain or Discomfort Respiratory: No: Shortness of Breath Gastrointestinal: No: Nausea, Vomiting Genitourinary: No: Dysuria, Incontinence Musculoskeletal: Positive: Pain, No: Edema Skin: No Rash, No Itching Neurologic: No: Weakness, Dizziness, Sensory Disturbance Physical Exam Narrative GENERAL: Awake and alert, in no acute distress. SKIN: Focused skin assessment warm/dry. HEAD: Atraumatic. Normocephalic. EYES: Pupils equal and round. No scleral icterus. ENT: No nasal bleeding or discharge. Mucous membranes pink and moist. CARDIOVASCULAR: Regular rate and rhythm. No murmur appreciated. RESPIRATORY: No accessory muscle use. Clear to auscultation. Breath sounds equal bilaterally. MUSCULOSKELETAL: No obvious deformities. No clubbing. No cyanosis. No edema. No tenderness to the lumbar spine. Pain with palpation of the right hip. Unable to range right hip due to pain. Pedal pulse intact. No erythema or warmth of the joint. NEUROLOGICAL: Awake and alert. No obvious cranial nerve deficits. Motor grossly within normal limits. Normal speech. Data Data Last Documented VS Vital Signs Date Time Temp Pulse Resp B/P (MAP) Pulse Ox O2 Delivery O2 Flow Rate FiO2 03/14/17 21:02 107 18 156/77 (103) 95 Room Air 03/14/17 16:[address] Lumb Spine W/O Contrast (03/14/17 ) Ct Hip W/O Contrast (03/14/17 ) Morphine Inj (Morphine Inj) (03/14/17 18:30) Cyclobenzaprine (Flexeril) (03/14/17 18:30) Oxycodone-Acetamin 5-325 Mg (Percocet (03/14/17 21:00) Place In Observation (03/14/17 ) Vital Signs (Adult) Q4H (03/14/17 22:31) Activity Oob With Assistance (03/14/17 22:31) Unmanned Equipment Operator / Telemetry .CONTINUOUS (03/14/17 22:31) Diet Heart Healthy (03/15/17 Breakfast) Sodium Chloride 0.9% Flush (Ns Flush) (03/14/17 22:45) Sodium Chloride 0.9% Flush (Ns Flush) (03/15/17 09:00) Basic Metabolic Panel (Bmp) (03/15/17 06:00) Complete Blood Count With Diff (03/15/17 06:00) Pt Request For Service (03/14/17 22:31) Case Management Consult (03/14/17 22:31) Naloxone Inj (Narcan Inj) (03/14/17 22:45) Oxycodone-Acetamin 5-325 Mg (Percocet (03/14/17 22:45) Admit Order (Ed Use Only) (03/14/17 ) MDM Medical Decision Making Medical Screen Exam Complete: Yes Emergency Medical Condition: Yes Medical Record Reviewed: Yes Differential Diagnosis arthritis vs fracture vs sprain Narrative Course Patient is an 82-year-old female comes in complaining of right-sided hip pain radiating to her knee. Exam shows pain with movement. CT of the lumbar spine and right hip performed show no acute findings. She has severe degenerative changes of her lumbar spine, which is likely accounting for her pain. She was given morphine as well as Flexeril for pain. She says this helped, but started to wear off. Given a dose of Percocet. Patient attempted to go out to her car, but says she was in severe pain and is unable to go home. She'll be placed in observation for further management. Diagnosis Primary Impression: Hip pain Qualified Codes: M25.551 - Pain in right hip Additional Impression: Degenerative disc disease, lumbar Patient Instructions: General Instructions Condition: Stable Larisa Howe MD Mar 14, 2017 18:51
--- NOTE | 2017-03-14 20:15 | RADRPT ---
EXAM DATE/TIME: 03/14/2017 18:41 [facility] COMPARISON: CT PELVIS W/O CONTRAST, January 13, 2017, 11:15. INDICATIONS : Back and hip pain; no injury. RADIATION DOSE: 21.61 CTDIvol (mGy) MEDICAL HISTORY : Cardiovascular disease. Chronic obstructive pulmonary disease. Hypertension. SURGICAL HISTORY : Hysterectomy. ENCOUNTER: Initial ACUITY: 3 weeks PAIN SCALE: 7/10 LOCATION: Right hip TECHNIQUE: Volumetric scanning of the hip was performed. Using automated exposure control and adjustment of the mA and/or kV according to patient size, radiation dose was kept as low as reasonably achievable to o btain optimal diagnostic quality images. DICOM format image data is available electronically for rev iew and comparison. FINDINGS: BONES: No fracture is seen at the right hip region. There are peripheral osteophytes at the right femoral he ad. There some hypertrophic change inferior to the right femoral head. JOINTS: No evidence of joint narrowing or effusion. There is degenerative change in the lower lumbar spine. SOFT TISSUES: Muscles, tendons and neurovascular structures are grossly unremarkable. No evidence of mass, organize d fluid collection, or foreign body. The patient is status post hysterectomy. There is a 2.9 cm cysti c area seen at the right adnexa related to either right ovarian cyst or potentially a bladder diverti culum. Atherosclerotic calcifications are seen. Phleboliths are seen in the pelvis. There is a electr onic device seen over the left gluteal region with a lead extending to the left side of the sacrum. CONCLUSION: 1. No acute fracture seen. 2. Degenerative change with osteophytes and hypertrophic change at the right hip region. 3. Degenerative change in the lumbar spine. 4. Cystic area in the right adnexa related to either a bladder diverticulum or a right ovarian cyst i f the patient still has her right ovary. Delvin Lou MD on March 14, 2017 at 20:08 Board Certified Radiologist. This report was verified electronically.
--- NOTE | 2017-03-14 20:32 | RADRPT ---
EXAM DATE/TIME: 03/14/2017 18:37 [facility] COMPARISON: No previous studies available for comparison. INDICATIONS : Back and hip pain; no injury. RADIATION DOSE: 35.86 CTDIvol (mGy) MEDICAL HISTORY : Cardiovascular disease. Hypertension. Chronic obstructive pulmonary diseas e. SURGICAL HISTORY : Hysterectomy. ENCOUNTER: Initial ACUITY: 3 weeks PAIN SCALE: 8/10 LOCATION: Bilateral lumbar. TECHNIQUE: Volumetric scanning of the lumbar spine was performed. Multiplanar reconstructions in the sagittal, coronal and oblique axial planes were performed. Using automated exposure control and adjustment of the mA and/or kV according to patient size, radiation dose was kept as low as reasonab ly achievable to obtain optimal diagnostic quality images. DICOM format image data is available makenna ctronically for review and comparison. FINDINGS: VERTEBRAE: The lumbar vertebral bodies are normal in height. There is sclerosis at the left L1-L 2 level, right L4-L5 level and more diffusely at the L5-S1 level. ALIGNMENT: The lumbar vertebral bodies are grossly normally aligned in the sagittal plane. There is a dextrocurvature of the lumbar spine with the apex at the L2 level. T12-L1: There is mild diffuse disc bulge being asymmetric and worse on the left. The loss of height at the disc is worse on the left side. There does appear to be an asymmetric impression on the left anterior epidural space at the left lateral recess region and left neural foraminal region likely fro m the asymmetric disc bulge versus some mild to moderate left lateral recess disc protrusion. Overal l this causes a mild impression on the anterior left lateral aspect of the thecal sac at this level. It causes a mild impression on the inferior aspect of the left neural foramina but it does appear th e nerve root exits above these changes. L1-L2: Disc space is narrowed. There is a vacuum phenomenon. There is asymmetric disc bulge being worse on the left. A significant impression on the thecal sac is not seen. There are prominent lef t lateral marginal osteophytes. The neural foramina are grossly intact. L2-L3: There is mild diffuse disc bulge. There is a vacuum phenomenon. There is mild loss of heig ht at the left lateral aspect of the disc. There is prominent facet hypertrophy. There is ossificat ion at the ligamentum flavum region. The bulging disc causes a very mild impression on the thecal sa c but the more prominent hypertrophic change from the posterior elements causes a moderate impression on the posterior aspect of the thecal sac. Overall there is moderate narrowing of the thecal sac. T he neural foramina are normal. L3-L4: There is mild diffuse disc bulge. There is asymmetric and being worse on the left. There i s moderate to severe facet hypertrophy. The disc and facet changes lead to mild narrowing of the the xenia sac. The neural foramina are normal. L4-L5: There is diffuse disc bulge being asymmetric and worse on the right. There is a vacuum phe nomenon. There is hypertrophic change seen at the right lateral disc margin. There is moderate to s evere facet hypertrophy being worse on the right. The disc and posterior element changes lead to at least moderate stenosis. The left neural foramen is patent. The right neural foramen is very promin ently narrowed by the hypertrophic change and asymmetric disc bulge. L5-S1: The disc demonstrates decreased height. There is a vacuum phenomenon. There is mild bulgi ng. In addition there appears to be a more prominent focal impression on the anterior aspect of the thecal sac that appears partially calcified. This may be from chronic disc protrusion. There is mild to moderate facet hypertrophy being worse on the right. There is narrowing of the right neural fora hunter. The left neural foramina is grossly patent. OTHER: There is a small 2 mm nonobstructing right renal stone seen in the inferior collecting system . There is also a 2 mm calcification seen in the more central aspect of the left kidney representing either a vascular calcification or a second nonobstructing renal stone. Hydronephrosis is not seen on either side. Vascular calcifications are seen throughout the visualized arterial system. CONCLUSION: 1. Moderate stenosis at the L2-L3 and L4-L5 levels caused by a combination of disc changes and facet and ligamentum flavum hypertrophy. 2. Mild to moderate narrowing at the thecal sac at the L3-L4 level. 3. Narrowing of the right neural foramina at the L4-L5 and L5-S1 levels. Delvin Lou MD on March 14, 2017 at 19:53 Board Certified Radiologist. This report was verified electronically.
[2017-03-14] MEDS ORDERED: oxyCODONE/ACETAMINOPHEN 5 MG/325 MG TAB PO ONE (21:00)
[2017-03-14 21:02] VITALS: BP 156/77; PULSE 107; RESP 18; O2SAT 95
[2017-03-14] MEDS ORDERED: HYDR-3533 PO (21:38)
[2017-03-14] MEDS ORDERED: oxyCODONE/ACETAMINOPHEN 5 MG/325 MG TAB PO PRN (22:45)
[2017-03-14] MEDS ORDERED: SODIUM CHLORIDE 0.9% FLUSH 10 ML FLUSH IV FLUSH PRN (22:45)
[2017-03-14] MEDS ORDERED: NALOXONE HCL 0.4 MG/ML AMP IV PRN (22:45)
[2017-03-14 23:49] VITALS: BP 128/66; PULSE 111; RESP 18; O2SAT 92
[2017-03-15] VITALS (7 sets, daily range): BP systolic 129–137; BP diastolic 63–95; PULSE 113–135; RESP 18; TEMP 97.1–98.9; O2SAT 92–96
[2017-03-15 00:26] LABS: AUTOMATED NEUTROPHIL # 8.1 TH/MM3 (1.8-7.7); BASOPHIL # 0.1 TH/MM3 (0-0.2); BASOPHIL % 0.6 % (0.0-2.0); EOSINOPHIL % 0.1 % (0.0-4.0); HEMATOCRIT 43.7 % (35.0-46.0); HEMO FLAGS DIFF FINAL; LYMPH % 4.6 % (9.0-44.0); LYMPHOCYTE # 0.4 TH/MM3 (1.0-4.8); MEAN CELL VOLUME 88.7 FL (80.0-100.0); MEAN CORPUSCULAR HEMOGLOBIN 29.8 PG (27.0-34.0); MEAN CORPUSCULAR HGB CONC 33.6 % (32.0-36.0); MONO % 5.6 % (0.0-8.0); NEUT % 89.1 % (16.0-70.0); PLATELET COUNT 215 TH/MM3 (150-450); RED BLOOD COUNT 4.93 MIL/MM3 (4.00-5.30); RED CELL DISTRIBUTION WIDTH 13.7 % (11.6-17.2); WHITE BLOOD COUNT 9.1 TH/MM3 (4.0-11.0)
[2017-03-15 00:40] LABS: BICARBONATE 23.2 MEQ/L (21.0-32.0); POTASSIUM 4.4 MEQ/L (3.5-5.1)
[2017-03-15] MEDS ORDERED: EPIDURAL-DIPHENHYDRAMINE HCL 50 MG CAP PO PRN (01:55)
[2017-03-15] MEDS ORDERED: EPIDURAL-DO NOT ADMINISTER ANTICOAGULANTS PRN (01:55)
[2017-03-15] MEDS ORDERED: EPIDURAL-DIPHENHYDRAMINE HCL 50 MG/ML VIAL IV PUSH PRN (01:55)
[2017-03-15] MEDS ORDERED: EPIDURAL-NO SYSTEMIC NARCOTICS PRN (01:55)
[2017-03-15] MEDS ORDERED: EPIDURAL-NALOXONE HCL 0.4 MG/ML AMP IV PRN (01:55)
--- NOTE | 2017-03-15 04:14 | HHI.HP ---
[facility] Unknown Admission Diagnosis intractable back pain, inability to walk Diagnoses: Chief Complaint: back pain Travel History International Travel<30 Days: No Contact w/Intl Traveler <30 Da: No Traveled to Known Affected Are: No History of Present Illness Written by MICHEL Oliver acting as scribe for [Melissa] on 03/15/17 at 04: 06. 82 y/o female with a history of Arthritis, HTN, HLD, overactive bladder and AFib presented to the ED with complaints of increasing right sided pain for some time. She states the pain is a shooting severe pain from her lower back and runs down her leg and it is made worse by walking. She states the Percocet did not help her pain. She has never seen an orthopedic or neurosurgeon. She denies any chest pain, sob, fever, chills, dizziness or dysuria. During examination patient began to dose off, ROS was difficult to complete. She denies any chest pain, sob, fever or chills. Review of Systems ROS Limitations: Altered Mental Status, Other (sleepy) Past Family Social History Past Medical History Afib Overactive bladder HLD HTN Past Surgical History Cataract surgery Appendectomy Tonsillectomy Tooth extraction Hysterectomy Cardiac ablation Reported Medications Reported Meds & Active Scripts Active Potassium Chloride Microencaps 20 Meq Tab 20 Meq PO DAILY Hydrocodone-Acetaminophen 5-325 mg Tab 1 Tab PO Q4H PRN Reported Cardizem CD 24 HR (Diltiazem CD 24 HR) 240 Mg Caper 240 Mg PO DAILY Pravastatin 10 Mg Tab 10 Mg PO HS Oxybutynin ER 24 HR (Oxybutynin Chloride) 5 Mg Tab 5 Mg PO DAILY Eliquis (Apixaban) 5 Mg Tab 5 Mg PO BID Allergies: Coded Allergies: shellfish derived (Unverified Allergy, Severe, Anaphylaxis, 03/02/17) Active Ordered Medications Current Medications Medications (Trade) Dose Ordered Sig/Angeli Route Start Time Stop Time Status Last Admin (NS Flush) 2 ml UNSCH PRN IV FLUSH 03/14/17 22:45 (NS Flush) 2 ml BID IV FLUSH 03/15/17 09:00 (Narcan Inj) 0.4 mg UNSCH PRN IV 03/14/17 22:45 (Percocet 5-325 Mg) 1 tab Q4H PRN PO 03/14/17 22:45 03/15/17 02:55 Family History Heart disease Cancer Social History Quit smoking many years ago. Denies alcohol or illicit drug use. Physical Exam Vital Signs Vital Signs Date Time Temp Pulse Resp B/P (MAP) Pulse Ox O2 Delivery O2 Flow Rate FiO2 03/15/17 01:15 03/14/17 23:49 111 18 128/66 (86) 92 Room Air 03/14/17 21:02 107 18 156/77 (103) 95 Room Air 03/14/17 16:53 98.4 98 20 132/74 (93) 98 Physical Exam GENERAL: This is a well-nourished, well-developed patient, who appears painful with movement. SKIN: No rashes, ecchymoses or lesions. Cool and dry. HEAD: Atraumatic. Normocephalic. EYES: Pupils equal round and reactive. ENT: Nose without bleeding, purulent drainage or septal hematoma. Airway patent. NECK: Trachea midline. No JVD or lymphadenopathy. CARDIOVASCULAR: Regular rate and rhythm without murmurs, gallops, or rubs. RESPIRATORY: Clear to auscultation. Breath sounds equal bilaterally. No wheezes , rales, or rhonchi. GASTROINTESTINAL: Abdomen soft, non-tender, nondistended. No hepato-splenomegaly , or palpable masses. No guarding. MUSCULOSKELETAL: Extremities without clubbing, cyanosis, or edema. right hip joint tenderness, no effusion, or edema noted. No calf tenderness. NEUROLOGICAL: Sleepy. Motor and sensory grossly within normal limits. Normal speech. Laboratory Laboratory Tests Test 03/15/17 00:00 White Blood Count 9.1 Red Blood Count 4.93 Hemoglobin 14.7 Hematocrit 43.7 Mean Corpuscular Volume 88.7 Mean Corpuscular Hemoglobin 29.8 Mean Corpuscular Hemoglobin Concent 33.6 Red Cell Distribution Width 13.7 Platelet Count 215 Mean Platelet Volume 7.7 Neutrophils (%) (Auto) 89.1 Lymphocytes (%) (Auto) 4.6 Monocytes (%) (Auto) 5.6 Eosinophils (%) (Auto) 0.1 Basophils (%) (Auto) 0.6 Neutrophils # (Auto) 8.1 Lymphocytes # (Auto) 0.4 Monocytes # (Auto) 0.5 Eosinophils # (Auto) 0.0 Basophils # (Auto) 0.1 CBC Comment DIFF FINAL Differential Comment Blood Urea Nitrogen 19 Creatinine 0.81 Random Glucose 110 Calcium Level 8.8 Sodium Level 138 Potassium Level 4.4 Chloride Level 104 Carbon Dioxide Level 23.2 Anion Gap 11 Estimat Glomerular Filtration Rate 67 Result Diagram: 03/15/17 0000 03/15/17 0000 Imaging Last Impressions Lumbar Spine CT 03/14/17 0000 Signed Impressions: Service Date/Time: Tuesday, March 14, 2017 18:37 - CONCLUSION: 1. Moderate stenosis at the L2-L3 and L4-L5 levels caused by a combination of disc changes and facet and ligamentum flavum hypertrophy. 2. Mild to moderate narrowing at the thecal sac at the L3-L4 level. 3. Narrowing of the right neural foramina at the L4-L5 and L5-S1 levels. Delvin Lou MD Lower Extremity CT 03/14/17 0000 Signed Impressions: Service Date/Time: Tuesday, March 14, 2017 18:41 - CONCLUSION: 1. No acute fracture seen. 2. Degenerative change with osteophytes and hypertrophic change at the right hip region. 3. Degenerative change in the lumbar spine. 4. Cystic area in the right adnexa related to either a bladder diverticulum or a right ovarian cyst if the patient still has her right ovary. Delvin Luo MD Capsandrai VTE Risk Assessment Caprini VTE Risk Assessment: Mod/High Risk (score >= 2) Caprini Risk Assessment Model Point Value = 1 Point Value = 2 Point Value = 3 Point Value = 5 Age 41-60 Minor surgery BMI > 25 kg/m2 Swollen legs Varicose veins or History of unexplained or recurrent spontaneous Oral contraceptives or hormone replacement Sepsis (< 1 month) Serious lung disease, including pneumonia (< 1 month) Abnormal pulmonary function Acute myocardial infarction Congestive heart failure (< 1 month) History of inflammatory bowel disease Medical patient at bed rest Age 61-74 Arthroscopic surgery Major open surgery (> 45 min) Laparoscopic surgery (> 45 min) Malignancy Confined to bed (> 72 hours) Immobilizing plaster cast Central venous access Age >= 75 History of VTE Family history of VTE Factor V Leiden Prothrombin [id number] Lupus anticoagulant Anticardiolipin antibodies Elevated serum homocysteine Heparin-induced thrombocytopenia Other congenital or acquired thrombophilia Stroke (< 1 month) Elective arthroplasty Hip, pelvis, or leg fracture Acute spinal cord injury (< 1 month) Prophylaxis Regimen Total Risk Factor Score Risk Level Prophylaxis Regimen 0-1 Low Early ambulation 2 Moderate Order ONE of the following: *Sequential Compression Device (SCD) *Heparin 5000 units SQ BID 3-4 Higher Order ONE of the following medications: *Heparin 5000 units SQ TID *Enoxaparin/Lovenox 40 mg SQ daily (WT < 150 kg, CrCl > 30 mL/min) *Enoxaparin/Lovenox 30 mg SQ daily (WT < 150 kg, CrCl > 10-29 mL/min) *Enoxaparin/Lovenox 30 mg SQ BID (WT < 150 kg, CrCl > 30 mL/min) AND/OR *Sequential Compression Device (SCD) 5 or more Highest Order ONE of the following medications: *Heparin 5000 units SQ TID (Preferred with Epidurals) *Enoxaparin/Lovenox 40 mg SQ daily (WT < 150 kg, CrCl > 30 mL/min) *Enoxaparin/Lovenox 30 mg SQ daily (WT < 150 kg, CrCl > 10-29 mL/min) *Enoxaparin/Lovenox 30 mg SQ BID (WT < 150 kg, CrCl > 30 mL/min) AND *Sequential Compression Device (SCD) Assessment and Plan Problem List: (1) Inability to ambulate due to hip ICD Code: R26.2 - Inability to ambulate due to hip Status: Acute (2) Hip pain ICD Code: M25.559 - Pain in unspecified hip Status: Acute Assessment and Plan 82 y/o female with a history of Arthritis, HTN, HLD, overactive bladder and AFib presented to the ED with complaints of increasing right sided pain for some time. Inability to ambulate due to back and hip pain Lumbar spine CT reviewed and shows moderate stenosis at L2-L3 and L4-L5. Mild to moderate narrowing at the facet and ligamentum flavum hypertrophy Lower Extremity CT reviewed and shows no fracture, degenerative changes with osteophytes and hypertrophic change at the right hip region. -Pain management with PO Percocet -PT eval and treat -Patient may need orthopedic consult if no improvement HTN, chronic: Reorder home medications, monitor vitals AFIB, chronic: Reorder home medications, monitor telemetry DVT prophylaxis: SCDs This note was transcribed by fidelina [Ginny Figueroa]. I, Dr. Brennon Torres personally performed the history, physical exam, and medical decision making; and confirmed the accuracy of the information in the transcribed note. Authenticated by Dr. Brennon Torres on03/15/17 at 04:06. Problem Qualifiers (1) Hip pain: Qualified Codes: M25.551 - Pain in right hip Ginny Figueroa Mar 15, 2017 04:14 Brennon Torres MD Mar 15, 2017 07:59
[2017-03-15] MEDS ORDERED: HYDROmorphone HCL PF 1 MG/ML VIAL IV PUSH PRN (04:15)
[2017-03-15] MEDS: oxyCODONE/ACETAMINOPHEN 5 MG/325 MG TAB PO PRN ×2 (08:03→20:56)
[2017-03-15] MEDS: SODIUM CHLORIDE 0.9% FLUSH 10 ML FLUSH IV FLUSH SCH ×2 (08:03→21:01)
--- NOTE | 2017-03-15 12:25 | HHI.PR ---
Subjective Remarks Follow up for intractable right lower back and right hip pain. She reports minimal improvement overnight. She locates the pain to the right lumbar area, with radiation to the right lateral hip and into the right groin. She denies any recent fall or injury. She was not able to ambulate with PT today. She states she does get temporary relief with the Percocet, falls asleep for an hour or so, then wakes up again with intractable pain. Any minimal movement worsens the pain. She does not feel ready for discharge. Objective Vitals Vital Signs Date Time Temp Pulse Resp B/P (MAP) Pulse Ox O2 Delivery O2 Flow Rate FiO2 03/15/17 11:59 97.9 126 18 130/89 (103) 96 03/15/17 09:03 20 03/15/17 07:38 97.1 119 18 137/63 (87) 93 03/15/17 05:05 97.8 113 18 129/67 (87) 94 03/15/17 03:58 17 03/15/17 01:58 124 03/15/17 01:15 03/14/17 23:49 111 18 128/66 (86) 92 Room Air 03/14/17 21:02 107 18 156/77 (103) 95 Room Air 03/14/17 16:53 98.4 98 20 132/74 (93) 98 I/O 03/14/17 03/14/17 03/14/17 03/15/17 03/15/17 03/15/17 07:00 15:00 23:00 07:00 15:00 23:00 Intake Total 240 ml Balance 240 ml Intake Oral 240 ml # Voids 2 Result Diagram: 03/15/17 0000 03/15/17 0000 Imaging Last Impressions Lumbar Spine CT 03/14/17 0000 Signed Impressions: Service Date/Time: Tuesday, March 14, 2017 18:37 - CONCLUSION: 1. Moderate stenosis at the L2-L3 and L4-L5 levels caused by a combination of disc changes and facet and ligamentum flavum hypertrophy. 2. Mild to moderate narrowing at the thecal sac at the L3-L4 level. 3. Narrowing of the right neural foramina at the L4-L5 and L5-S1 levels. Delvin Lou MD Lower Extremity CT 03/14/17 0000 Signed Impressions: Service Date/Time: Tuesday, March 14, 2017 18:41 - CONCLUSION: 1. No acute fracture seen. 2. Degenerative change with osteophytes and hypertrophic change at the right hip region. 3. Degenerative change in the lumbar spine. 4. Cystic area in the right adnexa related to either a bladder diverticulum or a right ovarian cyst if the patient still has her right ovary. Delvin Lou MD Objective Remarks GENERAL: Well-nourished, well-developed elderly female patient in moderate distress secondary to pain, attempting to get on bed arteaga. SKIN: Warm and dry. No rash. HEENT: Normocephalic. Atraumatic. Pupils equal and round. Mucous membranes pink and moist. CARDIOVASCULAR: Irregular rate and rhythm. S1, S2 noted. No murmur appreciated. RESPIRATORY: No accessory muscle use. Clear to auscultation. Breath sounds equal bilaterally. GASTROINTESTINAL: Abdomen soft, non-tender, nondistended. Normoactive bowel sounds x4. MUSCULOSKELETAL: No obvious deformities. Extremities without clubbing, cyanosis , or edema. Diffusely TTP throughout right lumbosacral paraspinous muscles, right lateral hip, and right anterior groin. Does not participate in active or passive ROM testing secondary to severe pain. NEUROLOGICAL: Awake and alert. No obvious cranial nerve deficits. Motor grossly within normal limits. 5/5 muscle strength with bilateral plantar/ dorsiflexion. Normal speech. PSYCHIATRIC: Appropriate mood and affect; insight and judgment normal. Medications and IVs Current Medications Medications (Trade) Dose Ordered Sig/Angeli Route Start Time Stop Time Status Last Admin (NS Flush) 2 ml UNSCH PRN IV FLUSH 03/14/17 22:45 (NS Flush) 2 ml BID IV FLUSH 03/15/17 09:00 03/15/17 08:03 (Narcan Inj) 0.4 mg UNSCH PRN IV 03/14/17 22:45 (Percocet 5-325 Mg) 1 tab Q6H PRN PO 03/15/17 04:30 03/15/17 08:03 A/P Problem List: (1) Inability to ambulate due to hip ICD Code: R26.2 - Inability to ambulate due to hip Status: Acute (2) Hip pain ICD Code: M25.559 - Pain in unspecified hip Status: Acute Assessment and Plan 82 y/o female with a history of Arthritis, HTN, HLD, overactive bladder and AFib presented to the ED with complaints of increasing right sided pain for some time. Inability to ambulate secondary to right sided lumbar and right hip pain: Lumbar spine CT images reviewed, shows moderate stenosis at L2-L3 and L4-L5; Mild to moderate narrowing at the facet and ligamentum flavum hypertrophy. Right Lower Extremity CT images reviewed, shows no fracture, degenerative changes with osteophytes and hypertrophic change at the right hip region. -Pain management with PO Percocet, IV morphine prn breakthrough pain -PT eval and treat, patient unable to participate with PT today -Ordered K thermia, Flexeril prn muscle spasms -Check Doppler U/S RLE -Consider orthopedic consultation if no improvement, also consider IR consult for steroid injection HTN, chronic: Continued home medications, monitor vitals AFIB, chronic: Continued home medications, monitor on telemetry DVT prophylaxis: SCDs Discharge Planning Discharge pending further clinical improvement. Not yet ready for discharge. Problem Qualifiers (1) Hip pain: Qualified Codes: M25.551 - Pain in right hip Izabella Peña PA-C Mar 15, 2017 12:25 pm
[2017-03-15] MEDS: CYCLOBENZAPRINE HCL 10 MG TAB PO PRN (12:40)
[2017-03-15] MEDS: MORPHINE SULFATE 4 MG/ML INJ IV PUSH PRN (12:41)
--- NOTE | 2017-03-15 13:09 | RADRPT ---
EXAM DATE/TIME: 03/15/2017 12:44 [facility] COMPARISON: No previous studies available for comparison. INDICATIONS : Right leg pain. MEDICAL HISTORY : Hypertension. Chronic obstructive pulmonary disease. Anticoagulant therapy. Atrial fibrillation. Dyspnea. Arthritis. Chronic kidney disease, stageIII. SURGICAL HISTORY : Tonsillectomy. Appendectomy. Hysterectomy. ENCOUNTER: Initial ACUITY: 4 - 6 days PAIN SCORE: 10/10 LOCATION: Right leg. TECHNIQUE: Venous ultrasound of the leg was performed from the inguinal ligament to the proximal calf. Real-tigre e, color Doppler and spectral tracing, compression and augmentation techniques were used. FINDINGS: There is normal compressibility of the deep venous system from the inguinal region to the proximal ca lf. No echogenic clot is seen in the lumen of the common femoral, femoral, popliteal, and posterior tibial veins. There is a normal response of the venous system to proximal and distal augmentation an d respiration. CONCLUSION: Normal examination. No evidence DVT Darek Vaughn MD on March 15, 2017 at 13:07 Board Certified Radiologist. This report was verified electronically.
[2017-03-15] MEDS ORDERED: DILTIAZEM HCL 60 MG TAB PO ONE (20:30)
[2017-03-15] MEDS: PRAVASTATIN SOD 10 MG TAB PO SCH (20:54)
[2017-03-15] MEDS ORDERED: PILL SPLITTER OTHER PRN (21:15)
[2017-03-15] MEDS: APIXABAN 5 MG TABLET PO SCH (21:34)
[2017-03-16] VITALS (10 sets, daily range): BP systolic 106–133; BP diastolic 56–90; PULSE 63–133; RESP 16–20; TEMP 97.4–98.2; O2SAT 94–96
[2017-03-16] MEDS: oxyCODONE/ACETAMINOPHEN 5 MG/325 MG TAB PO PRN ×2 (03:27→16:28)
--- NOTE | 2017-03-16 08:20 | HHI.PR ---
Subjective Remarks Follow-up for intractable lower back and right hip pain. The patient is a poor historian. The patient states that she doesn't have any pain as long as she doesn't move. She has not been out of bed and does not want to get out of bed with PT. When asked if the pain medicine helps, she states it helps her sleep. She denies any muscle spasms. She denies any numbness or tingling. She's had urinary incontinence for years. She doesn't recall any of the doctors that she follows with. Objective Vitals Vital Signs Date Time Temp Pulse Resp B/P (MAP) Pulse Ox O2 Delivery O2 Flow Rate FiO2 03/16/17 07:29 97.4 80 17 106/56 (73) 95 03/16/17 04:57 97.9 66 16 110/60 (77) 95 03/16/17 03:55 84 03/16/17 01:41 98.2 63 18 107/56 (73) 95 03/16/17 00:06 80 03/15/17 20:46 97.9 135 18 137/95 (109) 92 03/15/17 20:07 135 03/15/17 15:55 98.9 132 18 132/77 (95) 94 03/15/17 12:46 22 03/15/17 11:59 97.9 126 18 130/89 (103) 96 03/15/17 09:03 20 I/O 03/15/17 03/15/17 03/15/17 03/16/17 03/16/17 03/16/17 06:59 14:59 22:59 06:59 14:59 22:59 Intake Total 240 ml 240 ml 500 ml Balance 240 ml 240 ml 500 ml Intake Oral 240 ml 240 ml 500 ml # Voids 2 3 1 Result Diagram: 03/15/17 0000 03/15/17 0000 Imaging Last Impressions Lower Extremity Ultrasound 03/15/17 0000 Signed Impressions: Service Date/Time: Wednesday, March 15, 2017 12:44 - CONCLUSION: Normal examination. No evidence DVT Darek Vaughn MD Lumbar Spine CT 03/14/17 0000 Signed Impressions: Service Date/Time: Tuesday, March 14, 2017 18:37 - CONCLUSION: 1. Moderate stenosis at the L2-L3 and L4-L5 levels caused by a combination of disc changes and facet and ligamentum flavum hypertrophy. 2. Mild to moderate narrowing at the thecal sac at the L3-L4 level. 3. Narrowing of the right neural foramina at the L4-L5 and L5-S1 levels. Delvin Lou MD Lower Extremity CT 03/14/17 0000 Signed Impressions: Service Date/Time: Tuesday, March 14, 2017 18:41 - CONCLUSION: 1. No acute fracture seen. 2. Degenerative change with osteophytes and hypertrophic change at the right hip region. 3. Degenerative change in the lumbar spine. 4. Cystic area in the right adnexa related to either a bladder diverticulum or a right ovarian cyst if the patient still has her right ovary. Delvin Lou MD Objective Remarks GENERAL: Well-developed well-nourished. In no acute distress. SKIN: Warm and dry. No lesions noted. HEENT: Normocephalic. Pupils equal and round. Mucous membranes pink and moist. CARDIOVASCULAR: Regular rate and rhythm. No murmur appreciated. RESPIRATORY: No accessory muscle use. Clear to auscultation. Breath sounds equal bilaterally. GASTROINTESTINAL: Abdomen soft, non-tender, nondistended. Bowel sounds x4. MUSCULOSKELETAL: No obvious deformities. Minimal ROM of the hip secondary to pain. No right hip TTP. Right lower back TTP. No clubbing or cyanosis. No edema. NEUROLOGICAL: Awake and alert. Poor strength testing in the right hip secondary to pain. It appears the patient has decreased dorsi and plantar flexion on the right. Normal speech. PSYCHIATRIC: Appropriate mood and affect; insight and judgment fair to normal. A/P Problem List: (1) Inability to ambulate due to hip ICD Code: R26.2 - Inability to ambulate due to hip Status: Acute (2) Hip pain ICD Code: M25.559 - Pain in unspecified hip Status: Acute Assessment and Plan 82 y/o female with a history of Arthritis, HTN, HLD, overactive bladder and AFib presented to the ED with complaints of increasing right sided pain for some time. Inability to ambulate secondary to right sided lumbar and right hip pain: Reviewed: Lumbar spine CT shows moderate stenosis at L2-L3 and L4-L5; Mild to moderate narrowing at the facet and ligamentum flavum hypertrophy. Right Lower Extremity CT shows no fracture, degenerative changes with osteophytes and hypertrophic change at the right hip region. Ultrasound negative for DVT. -Pain management with PO Percocet, IV morphine prn breakthrough pain -PT consulted. Out of bed to chair. -K thermia, Flexeril prn muscle spasms -Trial of Lidoderm patch and IV steroids -Consult orthopedic and neurosurgery, appreciate specialists assistance HTN, chronic: Continued home medications, monitor vitals AFIB, chronic: Rate currently controlled on home Cardizem, monitor. Continue Eliquis for anticoagulation. Monitor on telemetry DVT prophylaxis: SCDs Discharge Planning Disposition pending further clinical improvement. May need SNF for DC. Discuss with case management, admitted inpatient with intractable pain. Problem Qualifiers (1) Hip pain: Qualified Codes: M25.551 - Pain in right hip Godfrey Woodson Mar 16, 2017 08:20
[2017-03-16] MEDS: MORPHINE SULFATE 4 MG/ML INJ IV PUSH PRN (08:28)
[2017-03-16] MEDS: SODIUM CHLORIDE 0.9% FLUSH 10 ML FLUSH IV FLUSH SCH ×2 (08:29→20:39)
[2017-03-16] MEDS: TOLTERODINE TARTRATE 2 MG CAP LA PO SCH (08:29)
[2017-03-16] MEDS: POTASSIUM CHLORIDE 20 MEQ CONTROLLED RELEASE TAB PO SCH (08:30)
[2017-03-16] MEDS: APIXABAN 5 MG TABLET PO SCH ×2 (08:31→20:39)
[2017-03-16] MEDS: LIDOCAINE HCL 5% PATCH T-DERMAL SCH (08:37)
[2017-03-16] MEDS ORDERED: NON-FORMULARY DRUG (Oxybutynin ER 24 HR 5 MG) PO SCH (09:00)
[2017-03-16] MEDS ORDERED: DILTIAZEM-CD 240 MG CAP ER PO SCH (09:00)
[2017-03-16] MEDS: DOCUSATE SODIUM 50 MG/SENNA 8.6 MG TAB PO SCH ×2 (11:31→20:39)
[2017-03-16] MEDS: methylPREDNISolone SOD SUCC 40 MG/1 ML VIAL IV PUSH SCH (11:31)
[2017-03-16] MEDS ORDERED: DILTIAZEM HCL 30 MG TAB PO ONE (16:15)
[2017-03-16] MEDS: PRAVASTATIN SOD 10 MG TAB PO SCH (20:39)
--- NOTE | 2017-03-16 23:19 | PD.CONS ---
HPI Service Neurosurgery Consult Requested By Medicine service Reason for Consult Low back and hip pain Primary Care Physician Unknown History of Present Illness 82-year-old female with recent previous history of admission for severe left hip and groin pain in December 2016. The patient states that this pain resolves spontaneously with conservative treatment. She now presents back to the emergency room with complaint of several days of progressive pain in the right posterior lateral hip and gluteal region with radiation to the lateral right thigh down to the knee. She denies any fevers or chills. She states that she has not been able to get out of bed and walk for a few days due to the pain. She has chronic bladder incontinence. She states that she had a stimulator placed for her bladder but had a disconnected recently due to a shocking sensation in the vaginal-pelvic region which partially resolved with disconnection of the device. Review of Systems Constitutional: COMPLAINS OF: Fatigue Eyes: DENIES: Blurred vision Respiratory: DENIES: Shortness of breath Cardiovascular: DENIES: Chest pain, Palpitations Gastrointestinal: DENIES: Abdominal pain, Diarrhea, Nausea Musculoskeletal: COMPLAINS OF: Joint pain, Muscle aches, Back pain Hematologic/lymphatic: DENIES: Bruising Neurologic: COMPLAINS OF: Abnormal gait, DENIES: Headache Psychiatric: DENIES: Confusion Past Family Social History Allergies: Coded Allergies: shellfish derived (Unverified Allergy, Severe, Anaphylaxis, 03/02/17) Past Medical History History of atrial fibrillation, hypertension, dyslipidemia Positive rheumatoid arthritis Past Surgical History Appendectomy Hysterectomy Tonsillectomy Cataract surgery Cardiac ablation Reported Medications Reported Meds & Active Scripts Active Potassium Chloride Microencaps 20 Meq Tab 20 Meq PO DAILY Hydrocodone-Acetaminophen 5-325 mg Tab 1 Tab PO Q4H PRN Reported Cardizem CD 24 HR (Diltiazem CD 24 HR) 240 Mg Caper 240 Mg PO DAILY Pravastatin 10 Mg Tab 10 Mg PO HS Oxybutynin ER 24 HR (Oxybutynin Chloride) 5 Mg Tab 5 Mg PO DAILY Eliquis (Apixaban) 5 Mg Tab 5 Mg PO BID Family History Denies family history of arthritis, inflammatory disease. Positive cardiac disease Social History No alcohol use. Does not smoke cigarettes for many years Physical Exam Vital Signs Vital Signs Date Time Temp Pulse Resp B/P (MAP) Pulse Ox O2 Delivery O2 Flow Rate FiO2 03/16/17 19:39 98.2 133 20 125/90 (102) 94 03/16/17 17:10 20 03/16/17 15:39 97.5 128 18 133/63 (86) 96 03/16/17 11:14 97.7 98 19 114/61 (78) 94 03/16/17 08:33 20 03/16/17 08:00 77 03/16/17 07:29 97.4 80 17 106/56 (73) 95 03/16/17 04:57 97.9 66 16 110/60 (77) 95 03/16/17 03:55 84 03/16/17 01:41 98.2 63 18 107/56 (73) 95 03/16/17 00:06 80 Physical Exam GENERAL: Mildly obese lady, appears uncomfortable. SKIN: No abrasions, contusion, rash noted. Skin warm and dry. HEAD: Atraumatic. Normocephalic. No temporal or scalp tenderness. EYES: Sclerae are clear and nonicteric ENT: No facial edema or ecchymosis. No periorbital edema. No CSF otorrhea or rhinorrhea. No palpable facial fracture or deformity. NECK: Trachea midline. Mild cervical spine tenderness. CARDIOVASCULAR: Regular rate and rhythm without murmurs, gallops, or rubs. RESPIRATORY: Clear to auscultation. Breath sounds equal bilaterally. No wheezes , rales, or rhonchi. GASTROINTESTINAL: Abdomen soft, non-tender, nondistended. No hepato-splenomegaly , or palpable masses. No guarding. MUSCULOSKELETAL: Relatively mild lower lumbar paraspinous muscle and midline tenderness. She has rather severe tenderness over the right trochanteric bursa and posterior trochanter as well as the lateral proximal greater than distal right thigh. NEUROLOGICAL: Awake and alert Oriented to month and hospital. Speech is clear Converses, but somewhat tangential thought processes. Follow simple commands relatively well Answers questions appropriately Appears to have diminished judgment and insight Recent and remote memory appear rather poor. She is a poor historian. Has significant difficulty accounting for recent medical problems and past medical history. She cannot tell me when or where she had the implantable stimulator placed. Appear somewhat anxious. No definite depression. Pupils are equal and reactive to accommodation. Extra-ocular movements, visual yeboah to confrontation, facial sensorimotor, tongue, palate, sternocleidomastoid testing, hearing to finger rub testing, and bilateral shoulder shrug are all intact. Sensation is intact to light touch in all extremities Strength normal major flexion and extension groups in the upper extremities. She complains of significant pain with right lower extremity motor testing but with encouragement is able to maintain mostly 4-5/5 strength. Normal strength in the left lower extremity. Rosario's absent bilaterally No ankle clonus Plantar responses absent bilateral Fine motor movements intact upper extremities Laboratory Current Medications Medications (Trade) Dose Ordered Sig/Angeli Route Start Time Stop Time Status Last Admin (NS Flush) 2 ml UNSCH PRN IV FLUSH 03/14/17 22:45 (NS Flush) 2 ml BID IV FLUSH 03/15/17 09:00 03/16/17 20:39 (Narcan Inj) 0.4 mg UNSCH PRN IV 03/14/17 22:45 (Percocet 5-325 Mg) 1 tab Q6H PRN PO 03/15/17 04:30 03/16/17 16:28 (Morphine Inj) 2 mg Q3H PRN IV PUSH 03/15/17 12:30 03/16/17 08:28 (Flexeril) 5 mg Q8H PRN PO 03/15/17 12:30 03/15/17 12:40 (Pravachol) 10 mg HS PO 03/15/17 21:00 03/16/17 20:39 (Eliquis) 5 mg BID PO 03/15/17 21:15 03/16/17 20:39 (KCl) 20 meq DAILY PO 03/16/17 09:00 03/16/17 08:30 (Detrol La) 2 mg DAILY PO 03/16/17 09:00 03/16/17 08:29 (Pill Splitter) 1 ea UNSCH PRN OTHER 03/15/17 21:15 (Lidoderm 5% Patch.12 Hr) 1 patch DAILY T-DERMAL 03/16/17 09:00 03/16/17 08:37 (SoluMEDROL INJ) 40 mg DAILY IV PUSH 03/16/17 10:00 03/18/17 09:01 03/16/17 11:31 (Alia-Colace) 1 tab BID PO 03/16/17 10:00 03/16/17 20:39 (Cardizem Cd) 300 mg DAILY PO 03/17/17 09:00 Result Diagram: 03/15/17 0000 03/15/17 0000 Imaging A 06/03/17 CT scan lumbar spine images reviewed by the undersigned. There is mostly moderate diffuse degenerative disc disease and spondylosis with mostly mild to moderate stenosis at the L2-3 greater than L4 5 level with mild stenosis at L3 4. Overall no significant areas of nerve compression. Lower Extremity Ultrasound 03/15/17 Signed Impressions: Service Date/Time: Wednesday, March 15, 2017 12:44 - CONCLUSION: Normal examination. No evidence DVT Darek Vaughn MD Lumbar Spine CT 03/14/17 Signed Impressions: Service Date/Time: Tuesday, March 14, 2017 18:37 - CONCLUSION: 1. Moderate stenosis at the L2-L3 and L4-L5 levels caused by a combination of disc changes and facet and ligamentum flavum hypertrophy. 2. Mild to moderate narrowing at the thecal sac at the L3-L4 level. 3. Narrowing of the right neural foramina at the L4-L5 and L5-S1 levels. Delvin Lou MD Lower Extremity CT 03/14/17 Signed Impressions: Service Date/Time: Tuesday, March 14, 2017 18:41 - CONCLUSION: 1. No acute fracture seen. 2. Degenerative change with osteophytes and hypertrophic change at the right hip region. 3. Degenerative change in the lumbar spine. 4. Cystic area in the right adnexa related to either a bladder diverticulum or a right ovarian cyst if the patient still has her right ovary. Delvin Lou MD Assessment and Plan Assessment and Plan Impression: 1. The patient has findings and complaints primarily isolated to the right lateral hip and thigh. This appears to be primarily myofascial pain. CT scan of the hip without significant acute changes. She had a recent admission in December 2016 for similar pain on the left side which resolved with conservative treatment. No evidence of significant lumbar spine stenosis or nerve compression. No definite lumbar radiculopathy. Possible myositis. Possible inflammatory disease Recommendations: Findings were discussed with the patient. No definite lumbar radiculopathy or significant stenosis. Continue physical therapy and medications for management of the acute pain symptoms. Pain will likely resolve with conservative treatment. No neurosurgical intervention anticipated at this point. May need short-term half-way or rehabilitation placement. Randy Cardoza MD Mar 16, 2017 23:19
[2017-03-17] VITALS (9 sets, daily range): BP systolic 128–155; BP diastolic 63–80; PULSE 67–130; RESP 18–22; TEMP 97.3–98.2; O2SAT 93–98
[2017-03-17] MEDS: oxyCODONE/ACETAMINOPHEN 5 MG/325 MG TAB PO PRN ×2 (04:09→11:29)
[2017-03-17 08:52] LABS: AUTOMATED NEUTROPHIL # 8.7 TH/MM3 (1.8-7.7); BASOPHIL % 0.5 % (0.0-2.0); HEMATOCRIT 42.5 % (35.0-46.0); HEMO FLAGS DIFF FINAL; LYMPH % 5.5 % (9.0-44.0); LYMPHOCYTE # 0.6 TH/MM3 (1.0-4.8); MEAN CELL VOLUME 88.4 FL (80.0-100.0); MEAN CORPUSCULAR HEMOGLOBIN 30.1 PG (27.0-34.0); MEAN CORPUSCULAR HGB CONC 34.1 % (32.0-36.0); MONO % 7.6 % (0.0-8.0); NEUT % 86.4 % (16.0-70.0); PLATELET COUNT 269 TH/MM3 (150-450); RED BLOOD COUNT 4.81 MIL/MM3 (4.00-5.30); RED CELL DISTRIBUTION WIDTH 13.3 % (11.6-17.2); WHITE BLOOD COUNT 10.1 TH/MM3 (4.0-11.0)
[2017-03-17 08:54] LABS: APTT (PATIENT) 34.5 SEC (24.3-30.1); INTERNATIONAL NORMALIZED RATIO 1.1 RATIO; PROTHROMBIN TIME - PATIENT 12.4 SEC (9.8-11.6)
[2017-03-17] MEDS: SODIUM CHLORIDE 0.9% FLUSH 10 ML FLUSH IV FLUSH SCH ×2 (09:00→21:03)
[2017-03-17] MEDS: methylPREDNISolone SOD SUCC 40 MG/1 ML VIAL IV PUSH SCH (09:03)
[2017-03-17] MEDS: DOCUSATE SODIUM 50 MG/SENNA 8.6 MG TAB PO SCH ×2 (09:03→21:01)
[2017-03-17] MEDS: TOLTERODINE TARTRATE 2 MG CAP LA PO SCH (09:03)
[2017-03-17] MEDS: DILTIAZEM-CD 300 MG CAP ER PO SCH (09:03)
[2017-03-17] MEDS: POTASSIUM CHLORIDE 20 MEQ CONTROLLED RELEASE TAB PO SCH (09:03)
[2017-03-17] MEDS: APIXABAN 5 MG TABLET PO SCH ×2 (09:04→21:01)
[2017-03-17 09:12] LABS: ANION GAP 11 MEQ/L (5-15); AST (GOT) 24 U/L (15-37); BICARBONATE 21.7 MEQ/L (21.0-32.0); BLOOD UREA NITROGEN 28 MG/DL (7-18); CHLORIDE 103 MEQ/L (98-107); GLOMERULAR FILTRATION RATE 76 ML/MIN (>89); POTASSIUM 4.3 MEQ/L (3.5-5.1); SODIUM (NA) 136 MEQ/L (136-145)
[2017-03-17 09:13] LABS: ALT (GPT) 13 U/L (10-53)
[2017-03-17 09:15] LABS: ALKALINE PHOSPHATASE 93 U/L (45-117); TOTAL BILIRUBIN ADULT 0.6 MG/DL (0.2-1.0)
[2017-03-17] MEDS: LIDOCAINE HCL 5% PATCH T-DERMAL SCH (09:15)
--- NOTE | 2017-03-17 11:31 | HHI.PR ---
Subjective Remarks Patient complained of burning with urination. Hip pain is ok as long as she does not move. Objective Vitals Vital Signs Date Time Temp Pulse Resp B/P (MAP) Pulse Ox O2 Delivery O2 Flow Rate FiO2 03/17/17 08:00 97.6 103 19 138/65 (89) 97 03/17/17 05:01 110 03/17/17 03:30 98.0 67 22 138/74 (95) 93 03/17/17 00:04 98.2 130 20 128/80 (96) 98 03/16/17 20:25 115 03/16/17 19:39 98.2 133 20 125/90 (102) 94 03/16/17 17:10 20 03/16/17 15:39 97.5 128 18 133/63 (86) 96 Result Diagram: 03/17/17 0752 03/17/17 0752 Imaging Last Impressions Lower Extremity Ultrasound 03/15/17 0000 Signed Impressions: Service Date/Time: Wednesday, March 15, 2017 12:44 - CONCLUSION: Normal examination. No evidence DVT Darek Vaughn MD Lumbar Spine CT 03/14/17 0000 Signed Impressions: Service Date/Time: Tuesday, March 14, 2017 18:37 - CONCLUSION: 1. Moderate stenosis at the L2-L3 and L4-L5 levels caused by a combination of disc changes and facet and ligamentum flavum hypertrophy. 2. Mild to moderate narrowing at the thecal sac at the L3-L4 level. 3. Narrowing of the right neural foramina at the L4-L5 and L5-S1 levels. Delvin Lou MD Lower Extremity CT 03/14/17 0000 Signed Impressions: Service Date/Time: Tuesday, March 14, 2017 18:41 - CONCLUSION: 1. No acute fracture seen. 2. Degenerative change with osteophytes and hypertrophic change at the right hip region. 3. Degenerative change in the lumbar spine. 4. Cystic area in the right adnexa related to either a bladder diverticulum or a right ovarian cyst if the patient still has her right ovary. Delvin Lou MD Objective Remarks GENERAL: This is a well-nourished, well-developed patient, in no apparent distress. CARDIOVASCULAR: Normal rate and regular rhythm without murmurs, gallops, or rubs. RESPIRATORY: Good respiratory efforts. Breath sounds equal and clear to auscultation bilaterally. GASTROINTESTINAL: Abdomen soft, non-tender, non-distended. Normal active bowel sounds MUSCULOSKELETAL: Right hip motion is limited due to pain. Nontender to palpation over the right hip. NEURO: Alert & Oriented x4 to person, place, time, situation. Moves all ext x4 PSYCH: Appropriate mood and affect. A/P Problem List: (1) Inability to ambulate due to hip ICD Code: R26.2 - Inability to ambulate due to hip Status: Acute (2) Hip pain ICD Code: M25.559 - Pain in unspecified hip Status: Acute Assessment and Plan 82 y/o female with a history of Arthritis, HTN, HLD, overactive bladder and AFib presented to the ED with complaints of increasing right sided pain. Inability to ambulate secondary to right sided lumbar and right hip pain: Lumbar spine CT shows moderate stenosis at L2-L3 and L4-L5; Mild to moderate narrowing at the facet and ligamentum flavum hypertrophy. Right Lower Extremity CT shows no fracture, degenerative changes with osteophytes and hypertrophic change at the right hip region. Ultrasound negative for DVT. - Pain seems to be more related to exacerbation of osteoarthritis versus myofascial pain. - Trial of IV steroid and Lidoderm patch - Neurosurgery evaluated the patient. No definite lumbar radiculopathy or significant stenosis. Recommends continuing conservative medical management. - Continue with pain control, [place] and IV morphine as needed. Flexeril as needed. - PT following. Patient will need SNF to continue rehabilitation for debility. Dysuria: Obtain urine for urinalysis HTN, chronic: Continued home medications, monitor vitals AFIB, chronic: Rate currently controlled on home Cardizem, monitor. Continue Eliquis for anticoagulation. Monitor on telemetry DVT prophylaxis: On Eliquis. Discharge Planning Plan to DC to SNF in 1-2 days. Problem Qualifiers (1) Hip pain: Qualified Codes: M25.551 - Pain in right hip Geoffrey Nguyen MD Mar 17, 2017 11:31
--- NOTE | 2017-03-17 13:05 | PD.CONS ---
cc: Shon Lowry Jr., MD HPI Service Orthopedic Surgeons Consult Requested By Primary Care Physician Unknown Admission Diagnosis intractable back pain, inability to walk Diagnoses: (1) Inability to ambulate due to hip (2) Hip pain Diagnosis: Principal Chief Complaint: right hip and flank pain History of Present Illness 82-year-old female presented to the emergency department, 2 days after seeing a chiropractor. She presented with severe right low back and right hip pain. She denies any history of trauma. The onset of her pain was insidious and started about 2 days after visiting a chiropractor. c/o right hip and low back pain and inability bear weight. X-ray taken the emergency department negative for fracture. Denies any head injuries. Denies any fever or chills. Denies loss of consciousness. Currently patient's pain is sharp, 8 out of 10, exacerbated by any range of motion, relieved by bedrest and with IV pain medicine, pain is sharp, radiating across her lower back and into anterior thigh.not associated with any paresthesia and numbness to the right lower extremity. Past Family Social History Past Medical History Afib Overactive bladder HLD HTN Past Surgical History Cataract surgery Appendectomy Tonsillectomy Tooth extraction Hysterectomy Cardiac ablation Allergies: Coded Allergies: shellfish derived (Unverified Allergy, Severe, Anaphylaxis, 03/02/17) Active Ordered Medications Current Medications Medications (Trade) Dose Ordered Sig/Angeli Route Start Time Stop Time Status Last Admin (NS Flush) 2 ml UNSCH PRN IV FLUSH 03/14/17 22:45 (NS Flush) 2 ml BID IV FLUSH 03/15/17 09:00 03/17/17 09:00 (Narcan Inj) 0.4 mg UNSCH PRN IV 03/14/17 22:45 (Percocet 5-325 Mg) 1 tab Q6H PRN PO 03/15/17 04:30 03/17/17 11:29 (Morphine Inj) 2 mg Q3H PRN IV PUSH 03/15/17 12:30 03/16/17 08:28 (Flexeril) 5 mg Q8H PRN PO 03/15/17 12:30 03/15/17 12:40 (Pravachol) 10 mg HS PO 03/15/17 21:00 03/16/17 20:39 (Eliquis) 5 mg BID PO 03/15/17 21:15 03/17/17 09:04 (KCl) 20 meq DAILY PO 03/16/17 09:00 03/17/17 09:03 (Detrol La) 2 mg DAILY PO 03/16/17 09:00 03/17/17 09:03 (Pill Splitter) 1 ea UNSCH PRN OTHER 03/15/17 21:15 (Lidoderm 5% Patch.12 Hr) 1 patch DAILY T-DERMAL 03/16/17 09:00 03/17/17 09:15 (SoluMEDROL INJ) 40 mg DAILY IV PUSH 03/16/17 10:00 03/18/17 09:01 03/17/17 09:03 (Alia-Colace) 1 tab BID PO 03/16/17 10:00 03/17/17 09:03 (Cardizem Cd) 300 mg DAILY PO 03/17/17 09:00 03/17/17 09:03 Reported Meds & Active Scripts Active Potassium Chloride Microencaps 20 Meq Tab 20 Meq PO DAILY Hydrocodone-Acetaminophen 5-325 mg Tab 1 Tab PO Q4H PRN Reported Cardizem CD 24 HR (Diltiazem CD 24 HR) 240 Mg Caper 240 Mg PO DAILY Pravastatin 10 Mg Tab 10 Mg PO HS Oxybutynin ER 24 HR (Oxybutynin Chloride) 5 Mg Tab 5 Mg PO DAILY Eliquis (Apixaban) 5 Mg Tab 5 Mg PO BID Family History Heart disease Cancer Social History Quit smoking many years ago. Denies alcohol or illicit drug use. Physical Exam Vital Signs Vital Signs Date Time Temp Pulse Resp B/P (MAP) Pulse Ox O2 Delivery O2 Flow Rate FiO2 03/17/17 12:00 97.3 80 18 155/65 (95) 98 03/17/17 08:00 97.6 103 19 138/65 (89) 97 03/17/17 05:01 110 03/17/17 03:30 98.0 67 22 138/74 (95) 93 03/17/17 00:04 98.2 130 20 128/80 (96) 98 03/16/17 20:25 115 8/30/17 19:39 98.2 133 20 125/90 (102) 94 03/16/17 17:10 20 03/16/17 15:39 97.5 128 18 133/63 (86) 96 Physical Exam Abdomen normal examAlert awake and oriented x 3. No acute distress. Head: NC/AT Neck: No pain with any range of motion and neck. Trachea is midline. No tenderness to palpation along posterior cervical elements. Pulmonary: Normal respiratory effort. Bilateral upper extremity: No deformities Intact sensation distally in median, ulnar, and radial nerve. Intact motor in anterior interosseous, posterior interosseous, and ulnar nerve. 2+ radial artery pulses. Good cap refill. RIGHT lower extremity: No deformity, grossly Neurovascularly intact, tender to palpation along the rectus and IT band. Generalized decreased range of motion in the right hip. Patient able to tolerate log roll and passive hip flexion to 30 and up to 20 both internal and external. +EHL/FHL. + PT/DP pulses. Supple compartments. Negative Homans sign. No pain with passive toe extension. TTP across low back and paraspinal musculature in the lower lumbar spine. LEFT lower extremity: No deformity, grossly Neurovascularly intact, +EHL/FHL. + PT/DP pulses. Supple compartments. Negative Homans sign. Laboratory Laboratory Tests Test 03/17/17 07:52 White Blood Count 10.1 Red Blood Count 4.81 Hemoglobin 14.5 Hematocrit 42.5 Mean Corpuscular Volume 88.4 Mean Corpuscular Hemoglobin 30.1 Mean Corpuscular Hemoglobin Concent 34.1 Red Cell Distribution Width 13.3 Platelet Count 269 Mean Platelet Volume 8.4 Neutrophils (%) (Auto) 86.4 Lymphocytes (%) (Auto) 5.5 Monocytes (%) (Auto) 7.6 Eosinophils (%) (Auto) 0.0 Basophils (%) (Auto) 0.5 Neutrophils # (Auto) 8.7 Lymphocytes # (Auto) 0.6 Monocytes # (Auto) 0.8 Eosinophils # (Auto) 0.0 Basophils # (Auto) 0.0 CBC Comment DIFF FINAL Differential Comment Prothrombin Time 12.4 Prothromb Time International Ratio 1.1 Activated Partial Thromboplast Time 34.5 Blood Urea Nitrogen 28 Creatinine 0.73 Random Glucose 104 Total Protein 8.1 Albumin 2.8 Calcium Level 9.6 Alkaline Phosphatase 93 Aspartate Amino Transf (AST/SGOT) 24 Alanine Aminotransferase (ALT/SGPT) 13 Total Bilirubin 0.6 Sodium Level 136 Potassium Level 4.3 Chloride Level 103 Carbon Dioxide Level 21.7 Anion Gap 11 Estimat Glomerular Filtration Rate 76 Result Diagram: 03/17/17 0752 03/17/17 0752 Imaging Last 72 hours Impressions Lower Extremity Ultrasound 03/15/17 0000 Signed Impressions: Service Date/Time: Wednesday, March 15, 2017 12:44 - CONCLUSION: Normal examination. No evidence DVT Darek Vaughn MD Assessment & Plan Assessment and Plan 82-year-old female presented to the emergency department, 2 days after seeing a chiropractor. She presented with severe right low back and right hip pain. On exam she is grossly neurovascularly intact. Her range of motion is guarded but good. She has tenderness along the musculature of the gluteus, hip abductors and anterior thigh compartment. 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 This is likely a myofascial contusion with underlying exacerbation of right hip arthritis. There is no need for any surgical intervention at this time as this is a chronic condition. The muscular pain from the contusion should resolve with conservative care. I'll be happy to follow the patient on outpatient basis for her right hip arthritis. Follow-up 2 weeks outpatient Shon Lowry Jr., MD Mar 17, 2017 13:05
[2017-03-17 16:29] LABS: BLOOD, URINE SMALL (NEG); GLUCOSE,URINE NEG (NEG); HYALINE CAST, URINE 6 /lpf (RARE); KETONE, URINE 10 mg/dL (NEG); MUCUS URINE FEW /lpf (OCC); NITRITE,URINE NEG (NEG); PH, URINE 5.5 (5.0-8.5); SQUAMOUS EPITHELIAL CELL URINE 1 /hpf (0-5); URINE COLOR YELLOW (YELLW/STRAW)
[2017-03-17 16:30] LABS: COMMENT (UR) CATH-CULT NOT IND; CULTURE IF INDICATED CATH CULTURE NOT IND
[2017-03-17] MEDS: PRAVASTATIN SOD 10 MG TAB PO SCH (21:01)
[2017-03-18 00:53] VITALS: BP 136/64; PULSE 109; RESP 18; TEMP 97; O2SAT 95
[2017-03-18 04:43] VITALS: BP 122/71; PULSE 102; RESP 16; TEMP 97.6; O2SAT 96
[2017-03-18 08:22] VITALS: BP 133/76; PULSE 112; RESP 18; TEMP 97.5; O2SAT 98
[2017-03-18] MEDS: DOCUSATE SODIUM 50 MG/SENNA 8.6 MG TAB PO SCH ×2 (10:26→22:21)
[2017-03-18] MEDS: POTASSIUM CHLORIDE 20 MEQ CONTROLLED RELEASE TAB PO SCH (10:27)
[2017-03-18] MEDS: DILTIAZEM-CD 300 MG CAP ER PO SCH (10:27)
[2017-03-18] MEDS: methylPREDNISolone SOD SUCC 40 MG/1 ML VIAL IV PUSH SCH (10:27)
[2017-03-18] MEDS: LIDOCAINE HCL 5% PATCH T-DERMAL SCH (10:27)
[2017-03-18] MEDS: APIXABAN 5 MG TABLET PO SCH ×2 (10:27→22:20)
[2017-03-18] MEDS: TOLTERODINE TARTRATE 2 MG CAP LA PO SCH (10:27)
[2017-03-18] MEDS: SODIUM CHLORIDE 0.9% FLUSH 10 ML FLUSH IV FLUSH SCH ×2 (10:28→21:00)
[2017-03-18] MEDS: oxyCODONE/ACETAMINOPHEN 5 MG/325 MG TAB PO PRN ×2 (10:42→22:20)
[2017-03-18] MEDS: CYCLOBENZAPRINE HCL 10 MG TAB PO PRN (10:42)
[2017-03-18 12:14] VITALS: BP 146/74; PULSE 103; RESP 18; TEMP 97; O2SAT 98
[2017-03-18] MEDS ORDERED: HYDR-3516 PO (12:34)
[2017-03-18] MEDS ORDERED: CYCL1TAB29 PO (12:34)
--- NOTE | 2017-03-18 13:29 | HHI.PR ---
Subjective Remarks Patient reports she is feeling better. Hip pain is better. Objective Vitals Vital Signs Date Time Temp Pulse Resp B/P (MAP) Pulse Ox O2 Delivery O2 Flow Rate FiO2 03/18/17 12:14 97.0 103 18 146/74 (98) 98 03/18/17 11:50 20 03/18/17 08:22 97.5 112 18 133/76 (95) 98 03/18/17 04:43 97.6 102 16 122/71 (88) 96 03/18/17 00:53 97.0 109 18 136/64 (88) 95 03/17/17 21:54 96 Nasal Cannula 2.00 03/17/17 21:25 97.3 96 18 138/63 (88) 96 03/17/17 20:00 107 03/17/17 16:00 97.3 103 18 132/72 (92) 96 I/O 03/17/17 03/17/17 03/17/17 03/18/17 03/18/17 03/18/17 07:00 15:00 23:00 07:00 15:00 23:00 Intake Total 480 ml Balance 480 ml Intake Oral 480 ml # Voids 5 5 # Bowel Movements 0 0 Result Diagram: 03/17/17 07503/17/17 075 Objective Remarks GENERAL: This is a well-nourished, well-developed patient, in no apparent distress. CARDIOVASCULAR: Normal rate and regular rhythm without murmurs, gallops, or rubs. RESPIRATORY: Good respiratory efforts. Breath sounds equal and clear to auscultation bilaterally. GASTROINTESTINAL: Abdomen soft, non-tender, non-distended. Normal active bowel sounds MUSCULOSKELETAL: Right hip motion is limited due to pain. Somewhat better. Nontender to palpation over the right hip. NEURO: Alert & Oriented x4 to person, place, time, situation. Moves all ext x4 PSYCH: Appropriate mood and affect. A/P Problem List: (1) Inability to ambulate due to hip ICD Code: R26.2 - Inability to ambulate due to hip Status: Acute (2) Hip pain ICD Code: M25.559 - Pain in unspecified hip Status: Acute Assessment and Plan 82 y/o female with a history of Arthritis, HTN, HLD, overactive bladder and Afib presented to the ED with complaints of increasing right sided pain. Inability to ambulate secondary to right sided lumbar and right hip pain: Lumbar spine CT shows moderate stenosis at L2-L3 and L4-L5; Mild to moderate narrowing at the facet and ligamentum flavum hypertrophy. Right Lower Extremity CT shows no fracture, degenerative changes with osteophytes and hypertrophic change at the right hip region. Ultrasound negative for DVT. - Pain seems to be more related to exacerbation of osteoarthritis versus myofascial pain. - Continue Trial of IV steroid and Lidoderm patch - Neurosurgery and Orthopedics evaluated the patient. No definite lumbar radiculopathy or significant stenosis. Recommends continuing conservative medical management. - Continue with pain control, [place] and IV morphine as needed. Flexeril as needed. - PT following. Patient will need SNF to continue rehabilitation for debility. HTN, chronic: Continued home medications, monitor vitals AFIB, chronic: Rate currently controlled on home Cardizem, monitor. Continue Eliquis for anticoagulation. Monitor on telemetry DVT prophylaxis: On Eliquis. Discharge Planning DC to SNF tomorrow. Problem Qualifiers (1) Hip pain: Qualified Codes: M25.551 - Pain in right hip Geoffrey Nguyen MD Mar 18, 2017 13:29
[2017-03-18 15:56] VITALS: BP 136/94; PULSE 93; RESP 18; TEMP 97.1; O2SAT 98
[2017-03-18 21:02] VITALS: BP 132/65; PULSE 101; RESP 17; TEMP 98; O2SAT 97
[2017-03-18] MEDS: PRAVASTATIN SOD 10 MG TAB PO SCH (22:20)
[2017-03-19] VITALS (7 sets, daily range): BP systolic 133–169; BP diastolic 65–78; PULSE 86–105; RESP 15–18; TEMP 96.7–98.7; O2SAT 96–100
[2017-03-19] MEDS ORDERED: DILTIAZEM-CD 300 MG CAP ER PO SCH (09:00)
[2017-03-19] MEDS: APIXABAN 5 MG TABLET PO SCH (09:03)
[2017-03-19] MEDS: TOLTERODINE TARTRATE 2 MG CAP LA PO SCH (09:03)
[2017-03-19] MEDS: DOCUSATE SODIUM 50 MG/SENNA 8.6 MG TAB PO SCH (09:03)
[2017-03-19] MEDS: POTASSIUM CHLORIDE 20 MEQ CONTROLLED RELEASE TAB PO SCH (09:03)
[2017-03-19] MEDS: LIDOCAINE HCL 5% PATCH T-DERMAL SCH (09:04)
[2017-03-19] MEDS: SODIUM CHLORIDE 0.9% FLUSH 10 ML FLUSH IV FLUSH SCH (09:04)
--- NOTE | 2017-03-19 10:58 | HHI.DCPOC ---
Discharge Care Plan Goals to Promote Your Health * To prevent worsening of your condition and complications take all medications as prescribed * To maintain your health at the optimal level follow all discharge instructions Directions to Meet Your Goals Take your medications as prescribed Follow your dietary instruction Follow activity as directed Keep your appointments as scheduled Take your immunizations and boosters as scheduled If your symptoms worsen call your PCP, if no PCP go to Urgent Care Center or Emergency Room Smoking is Dangerous to Your Health. Avoid second hand smoke Call the 24-hour hour crisis hotline for domestic abuse at Sammi Ignacio MD R3 Mar 19, 2017 10:58
[2017-03-19] MEDS ORDERED: POLYETHYLENE GLYCOL POWDER 255 GM BTL PO ONE (11:00)
[2017-03-19] MEDS ORDERED: BISACODYL 10 MG SUPP RECTAL ONE (11:00)
--- NOTE | 2017-03-19 11:05 | HHI.DS ---
Discharge Summary Admission Date Mar 16, 2017 at 10:53 Discharge Date: Mar 19, 2017 Admitting Diagnosis intractable back pain, inability to walk (1) Inability to ambulate due to hip ICD Code: R26.2 - Inability to ambulate due to hip Diagnosis: Principal Status: Acute (2) Hip pain ICD Code: M25.559 - Pain in unspecified hip Diagnosis: Principal Status: Acute Procedures None Brief History - From Admission Written by MICHEL Oliver acting as scribe for [Melissa] on 03/15/17 at 04: 06. 82 y/o female with a history of Arthritis, HTN, HLD, overactive bladder and AFib presented to the ED with complaints of increasing right sided pain for some time. She states the pain is a shooting severe pain from her lower back and runs down her leg and it is made worse by walking. She states the Percocet did not help her pain. She has never seen an orthopedic or neurosurgeon. She denies any chest pain, sob, fever, chills, dizziness or dysuria. During examination patient began to dose off, ROS was difficult to complete. She denies any chest pain, sob, fever or chills. CBC/BMP: 03/17/17 0752 03/17/17 0752 Significant Findings Laboratory Tests Test 03/17/17 07:52 03/17/17 16:00 Neutrophils (%) (Auto) 86.4 % (16.0-70.0) Lymphocytes (%) (Auto) 5.5 % (9.0-44.0) Neutrophils # (Auto) 8.7 TH/MM3 (1.8-7.7) Lymphocytes # (Auto) 0.6 TH/MM3 (1.0-4.8) Prothrombin Time 12.4 SEC (9.8-11.6) Activated Partial Thromboplast Time 34.5 SEC (24.3-30.1) Blood Urea Nitrogen 28 MG/DL (7-18) Albumin 2.8 GM/DL (3.4-5.0) Estimat Glomerular Filtration Rate 76 ML/MIN (>89) Urine Turbidity HAZY (CLEAR) Urine Protein 30 mg/dL (NEG-TRACE) Urine Ketones 10 mg/dL (NEG) Urine Occult Blood SMALL (NEG) Urine Mucus FEW /lpf (OCC) Imaging Last Impressions Lower Extremity Ultrasound 03/15/17 0000 Signed Impressions: Service Date/Time: Wednesday, March 15, 2017 12:44 - CONCLUSION: Normal examination. No evidence DVT Darek Vaughn MD Lumbar Spine CT 03/14/17 0000 Signed Impressions: Service Date/Time: Tuesday, March 14, 2017 18:37 - CONCLUSION: 1. Moderate stenosis at the L2-L3 and L4-L5 levels caused by a combination of disc changes and facet and ligamentum flavum hypertrophy. 2. Mild to moderate narrowing at the thecal sac at the L3-L4 level. 3. Narrowing of the right neural foramina at the L4-L5 and L5-S1 levels. Delvin Lou MD Lower Extremity CT 03/14/17 0000 Signed Impressions: Service Date/Time: Tuesday, March 14, 2017 18:41 - CONCLUSION: 1. No acute fracture seen. 2. Degenerative change with osteophytes and hypertrophic change at the right hip region. 3. Degenerative change in the lumbar spine. 4. Cystic area in the right adnexa related to either a bladder diverticulum or a right ovarian cyst if the patient still has her right ovary. Delvin Lou MD PE at Discharge GENERAL: This is a well-nourished, well-developed patient, in no apparent distress. CARDIOVASCULAR: Normal rate and regular rhythm without murmurs, gallops, or rubs. RESPIRATORY: Good respiratory efforts. Breath sounds equal and clear to auscultation bilaterally. GASTROINTESTINAL: Abdomen soft, non-tender, non-distended. Normal active bowel sounds MUSCULOSKELETAL: Right hip motion is limited due to pain. Somewhat better. Nontender to palpation over the right hip. NEURO: Alert & Oriented x4 to person, place, time, situation. Moves all ext x4 PSYCH: Appropriate mood and affect. Hospital Course 82 y/o female with a history of Arthritis, HTN, HLD, overactive bladder and Afib presented to the ED with complaints of increasing right sided pain. Inability to ambulate secondary to right sided lumbar and right hip pain: Lumbar spine CT shows moderate stenosis at L2-L3 and L4-L5; Mild to moderate narrowing at the facet and ligamentum flavum hypertrophy. Right Lower Extremity CT shows no fracture, degenerative changes with osteophytes and hypertrophic change at the right hip region. Ultrasound negative for DVT. - Pain seems to be more related to exacerbation of osteoarthritis versus myofascial pain. - Neurosurgery and Orthopedics evaluated the patient. No definite lumbar radiculopathy or significant stenosis. Recommends continuing conservative medical management and outpatient follow-up in 2 weeks. - Continue with pain control, [place]. Flexeril as needed. -Continue physical therapy at SNF HTN, chronic: Continued home medications, stable AFIB, chronic: Rate currently controlled on home Cardizem. Continue Eliquis for anticoagulation. DVT prophylaxis: On Eliquis. Pt Condition on Discharge: Stable Discharge Disposition: Discharge to SNF Discharge Time: <= 30 minutes Discharge Instructions DIET: Follow Instructions for: As Tolerated, No Restrictions Activities you can perform: Weight Bearing as Pablo Follow up Referrals: Orthopedics with Shon Lowry Jr., MD New Medications: Cyclobenzaprine (Flexeril) 10 Mg Tab 5 MG PO Q8H PRN for muscle spasms, #20 TAB Changed Medications: Hydrocodone-Acetaminophen (Hydrocodone-Acetaminophen) 5-325 mg Tab 1 TAB PO Q4H PRN for PAIN GREATER THAN 5, #20 TAB 0 Refills (Changed from: 10) Continued Medications: Apixaban (Eliquis) 5 Mg Tab 5 MG PO BID for Blood Clot Prevention, #60 TAB 0 Refills Diltiazem CD 24 HR (Cardizem CD 24 HR) 240 Mg Caper 320 MG PO DAILY, #30 CAP 0 Refills Oxybutynin ER 24 HR (Oxybutynin ER 24 HR) 5 Mg Tab 5 MG PO DAILY for Overactive Bladder, TAB 0 Refills Potassium Chloride Microencaps (Potassium Chloride Microencaps) 20 Meq Tab 20 MEQ PO DAILY for Nutritional Supplement, #30 TAB 0 Refills Pravastatin (Pravastatin) 10 Mg Tab 10 MG PO HS for Cholesterol Management, #30 TAB 0 Refills Sammi Ignacio MD R3 Mar 19, 2017 11:05
[2017-03-19] MEDS ORDERED: POLYETHYLENE GLYCOL 17 GM PKG PO ONE ×2 (12:00)
--- NOTE | 2017-03-19 20:50 | HHI.NSPN ---
History Chief Complaint: right hip and thigh pain Interval History 82-year-old female with recent admission through the emergency room for severe right hip and thigh pain. Patient has had prior similar symptoms a couple of months ago on the left side which resolved spontaneously. She is been undergoing physical therapy since her admission on 03/16/17, with at least moderate improvement in the pain level. Exam Results Vital Signs Date Time Temp Pulse Resp B/P (MAP) Pulse Ox O2 Delivery O2 Flow Rate FiO2 03/19/17 16:00 98.4 88 16 150/76 (100) 98 03/17/17 21:54 Nasal Cannula 2.00 Intake and Output 03/19/17 03/19/17 03/20/17 08:00 16:00 00:00 Intake Total 120 ml 240 ml Balance 120 ml 240 ml Physical Examination Awake and alert Conversant and appropriate Speech is clear No significant extremity edema or cyanosis Posterior tibial pulses 2+ bilateral Moderate tenderness over the right mid to lower gluteal musculature. No significant sciatic notch tenderness. Moderate tenderness over the right posterior trochanter and to a lesser extent the trochanteric bursa. Positive discomfort in the right hip with some radiation to the posterior thigh with internal and external rotation of the right lower extremity. Straight leg raising negative for radicular pain. Medical Decision Making Impression and Plan Impression: 1. Right gluteal and posterior thigh pain improving with conservative treatment. Most likely myofascial in origin. No definite evidence of lumbar radiculopathy Recommendations: Findings were discussed with the patient. She feels that she is improving steadily with therapy She is going to discharge to inpatient rehabilitation today. Signs and symptoms to watch for a full discussed. I advised her that I would be pleased to see her back in the office if her symptoms do not continue to improve, however this point this does not appear to be related to any of her lumbar spine abnormalities. She is stable for discharge from a neurosurgical standpoint Randy Cardoza MD Mar 19, 2017 20:50
== END 2017-03-19 19:26 | DRG 552 ==
LOC: NEPD 16:46 → NEDA 22:34 → NEPHCDU 03-15 02:06 → OBSVTOIN 03-16 10:53 → N05B 03-17 03:41
PROVIDERS: ADMIT Family Medicine; ATTEND Family Medicine
DX: M48.06 Spinal stenosis, lumbar region (principal); I48.2 Chronic atrial fibrillation; J44.9 Chronic obstructive pulmonary disease, unspecified; M06.9 Rheumatoid arthritis, unspecified; N32.81 Overactive bladder; E78.5 Hyperlipidemia, unspecified; I10 Essential (primary) hypertension; M16.11 Unilateral primary osteoarthritis, right hip; N32.3 Diverticulum of bladder; N83.201 Unspecified ovarian cyst, right side; R32 Unspecified urinary incontinence; Z79.01 Long term (current) use of anticoagulants; Z90.710 Acquired absence of both cervix and uterus
CPT/HCPCS: 72131; 73700; 80048; 80053; 81001; 85025; 85610; 85730; 93971; 96374; 96376; G0378; G8987-GP; G8988-GP; J2270; J2920

== ENCOUNTER → 2017-07-13 | Outpatient (CLI) | payer MEDICARE, BC ==
[~2017-07-13] MED LIST changes: +CYCL10TA PO; -CYCL5TAB PO; -FURO20TA PO; -WALKER WHEELS/F1 MIS
[2017-07-13 17:28] LABS: HEMATOCRIT 40.8 % (35.0-46.0); HEMOGLOBIN 13.6 GM/DL (11.6-15.3); MEAN CELL VOLUME 91.1 FL (80.0-100.0); MEAN CORPUSCULAR HEMOGLOBIN 30.3 PG (27.0-34.0); MEAN CORPUSCULAR HGB CONC 33.3 % (32.0-36.0); MEAN PLATELET VOLUME 8.2 FL (7.0-11.0); PLATELET COUNT 246 TH/MM3 (150-450); RED BLOOD COUNT 4.47 MIL/MM3 (4.00-5.30); RED CELL DISTRIBUTION WIDTH 13.5 % (11.6-17.2)
[2017-07-13 17:53] LABS: ALBUMIN 3.7 GM/DL (3.4-5.0); AST (GOT) 25 U/L (15-37); BLOOD UREA NITROGEN 17 MG/DL (7-18); CALCIUM 9.4 MG/DL (8.5-10.1); CHLORIDE 108 MEQ/L (98-107); CREATININE 0.88 MG/DL (0.50-1.00); GLOMERULAR FILTRATION RATE 61 ML/MIN (>89); GLUCOSE,FASTING 117 MG/DL (74-99); SODIUM (NA) 142 MEQ/L (136-145)
[2017-07-13 18:02] LABS: ALKALINE PHOSPHATASE 91 U/L (45-117); ALT (GPT) 15 U/L (10-53); CHOLESTEROL 168 MG/DL (120-200); FREE T4 1.16 NG/DL (0.76-1.46); HDL CHOLESTEROL 69.9 MG/DL (40.0-60.0); LDL CHOLESTEROL 85 MG/DL (0-99); TOTAL BILIRUBIN ADULT 0.7 MG/DL (0.2-1.0); TOTAL PROTEIN 8.6 GM/DL (6.4-8.2); TRIGLYCERIDES 64 MG/DL (42-150)
[2017-07-15 19:51] LABS: THYROID PEROX AB (MICROSOMAL) LESS THAN 1 IU/mL (<9)
[2017-07-15 23:53] LABS: THYROGLOB ABS LESS THAN 1 IU/mL (< OR = 1)
== END ==
LOC: PLAB 14:36
PROVIDERS: ATTEND Family Medicine
DX: E78.5 Hyperlipidemia, unspecified (principal); I10 Essential (primary) hypertension; J44.9 Chronic obstructive pulmonary disease, unspecified; E05.90 Thyrotoxicosis, unspecified without thyrotoxic crisis or storm
CPT/HCPCS: 80053; 80061; 84439; 84443; 84481; 85027; 86376; 86800

== ENCOUNTER 2018-07-24 10:19 | Observation (INO) ==
[2018-07-24] MEDS ORDERED: Sodium Chlor 0.9% Inj 500 ML IV.SIG ONE (11:14)
[2018-07-24 11:57] LABS: Hematocrit 45.9 % (35.0-46.0); Hemoglobin 15.8 gm/dL (11.6-15.3); Mean Corpuscular HGB Conc 34.4 % (32.0-36.0); Mean Corpuscular Hemoglobin 31.4 pg (27.0-34.0); Mean Corpuscular Volume 91.3 fL (80.0-100.0); Mean Platelet Volume 8.2 fL (7.0-11.0); Platelet Count 188 th/mm3 (150-450); Red Blood Count 5.03 mil/mm3 (4.00-5.30); Red Cell Distribution Width 14.1 % (11.6-17.2); White Blood Count 8.4 th/mm3 (4.0-11.0)
--- NOTE | 2018-07-24 11:57 | XR ---
EXAM DATE: 07/24/2018 11:53 AM EST AGE/SEX: 83 years / Female INDICATIONS: Weak, short of breath, chest pain CLINICAL DATA: This is the patient's initial encounter. Patient reports that signs and symptoms have been present for 3 days and indicates a pain score of 6/10. MEDICAL/SURGICAL HISTORY: None. None. COMPARISON: [facility], XR CHEST PA AND LAT, 05/06/2017. . FINDINGS: Marked elevation of the right hemidiaphragm. The heart is enlarged. Mild interstitial edema is present. There is no alveolar consolidation or pleural effusion. The portion of the bony skeleton visualized is unremarkable. CONCLUSION: Mild to moderate congestive failure No significant pleural effusion Moderate elevation of the right hemidiaphragm Electronically signed by: Gómez Love MD Board Certified Radiologist 07/24/2018 11:56 AM EST
[2018-07-24 12:09] LABS: Bacteria,Urine Few /hpf; Bilirubin,Urine Negative (Negative); Clarity,Urine Hazy (Clear); Color,Urine Yellow (Yellw/Straw); Glucose,Urine (UA) Negative (Negative); Hyaline Casts,Urine 1 /lpf (0-3); Leukocyte Esterase,Urine Negative (Negative); Mucus,Urine Many /lpf (Occasional); Nitrite,Urine Negative (Negative); Squamous Epithelial Cell,Urine 1 /hpf (0-5)
--- NOTE | 2018-07-24 12:10 | CT ---
EXAM DATE: 07/24/2018 11:55 AM EST AGE/SEX: 83 years / Female INDICATIONS: Weakness and abdominal pain for 3 days CLINICAL DATA: This is the patient's initial encounter. Patient reports that signs and symptoms have been present for 3 days and indicates a pain score of 0/10. MEDICAL/SURGICAL HISTORY: Hypertension. Appendectomy. Hysterectomy. RADIATION DOSE: 53.49 CTDI (mGy) COMPARISON: No prior exams available for comparison. TECHNIQUE: CT of the head without contrast. Using automated exposure control and adjustment of the mA and/or kV according to patient size, radiation dose was kept as low as reasonably achievable to ob tain optimal diagnostic quality images. DICOM format image data is available electronically for revi ew and comparison. FINDINGS: There is mild patchy hypodensity in the periventricular white matter which is likely chronic and joseph gn. No evidence of brain mass or hemorrhage. Ventricles are symmetric and mildly prominent. There is nothing to suggest acute infarction. The extracranial structures are grossly benign and intact. CONCLUSION: No acute findings . Electronically signed by: Delvin Hinds MD Board Certified Radiologist 07/24/2018 12:09 PM EST
[2018-07-24 12:13] LABS: Albumin 3.3 g/dL (3.4-5.0); Anion Gap 11 meq/L (5-15); Aspartate Aminotransferase 31 U/L (15-37); Blood Urea Nitrogen 25 mg/dL (7-18); Calcium 8.9 mg/dL (8.5-10.1); Carbon Dioxide 24.8 meq/L (21.0-32.0); Chloride 102 meq/L (98-107); Glomerular Filtration Rate 72 mL/min (>89); Glucose,Random 89 mg/dL (74-106); Lipase 93 U/L (73-393); Potassium 3.8 meq/L (3.5-5.1); Sodium 138 meq/L (136-145)
[2018-07-24 12:14] LABS: Activated Partial Thrombo Time 27.5 sec (23.4-31.7); INR 1.1 Ratio
[2018-07-24 12:15] LABS: Alanine Aminotransferase 17 U/L (10-53)
[2018-07-24 12:18] LABS: Alkaline Phosphatase 92 U/L (45-117); Total Protein 7.9 g/dL (6.4-8.2); Troponin I 0.13 ng/mL (0.02-0.05)
[2018-07-24 12:23] LABS: Creatine Kinase 34 U/L (26-192)
--- NOTE | 2018-07-24 12:25 | CT ---
EXAM DATE: 07/24/2018 12:08 PM EST AGE/SEX: 83 years / Female INDICATIONS: Weakness and abdomen pain for 3 days CLINICAL DATA: This is the patient's initial encounter. Patient reports that signs and symptoms have been present for 3 days and indicates a pain score of 7/10. MEDICAL/SURGICAL HISTORY: Gastrointestinal bleed. Appendectomy. Hysterectomy. RADIATION DOSE: 13.61 CTDI (mGy) COMPARISON: [facility] [place] H[place] RIGHT W/O CONTRAST, 03/14/2017. . TECHNIQUE: Multiple contiguous axial images were obtained through the abdomen. Images were obtained using multiple row detector helical technique. Using automated exposure control and adjustment of the mA and/or kV according to patient size, radiation dose was kept as low as reasonably achievable to o btain optimal diagnostic quality images. DICOM format image data is available electronically for rev iew and comparison. FINDINGS: Minimal airspace disease is present in the right lower lobe. This could be an early inflammatory proc ess. Moderate coronary calcifications are noted including the LAD. The liver and gallbladder unremarkable Pancreas and spleen appear normal Right and left adrenal glands are unremarkable There are no renal stones or obstruction Moderate vascular calcifications are evident without aneurysmal dilatation The cecum, ascending, transverse and descending colon appears unremarkable. In the pelvis the bladder is decompressed by a [place]. There is no evidence for diverticulitis Stimulator is implanted in the left buttocks. Abdominal patel intact . There is no ascites or adenopathy. Review of bone windows reveals significant degenerative changes in the thoracolumbar spine. CONCLUSIO N: 1. Minimal airspace disease right lower lobe. Inflammatory process 2. I do not see an etiology of patient's abdominal pain. 3. Moderate degenerative changes in the lumbar spine. Electronically signed by: Gómez Love MD Board Certified Radiologist 07/24/2018 12:23 PM EST
[2018-07-24 12:33] LABS: Lymphocytes 5 % (9-44); Monocytes 3 % (0-8); Toxic Granulation 1+; Toxic Vacuolation Present
[2018-07-24 12:34] LABS: Platelet Estimate Normal (Normal); Platelet Morphology Normal (Normal)
[2018-07-24] MEDS ORDERED: Piperacil/Tazo 4.5 GM Premix 4.5 GM/100 ML BAG IV.SIG SCH (12:45)
--- NOTE | 2018-07-24 12:59 | ED ---
HPI General Chief complaint: Weakness Stated complaint: Chest Pain Time Seen by Provider: 07/24/18 11:00 Source: patient and RN notes reviewed Mode of arrival: ambulatory Limitations: no limitations History of Present Illness HPI Narrative: 83-year-old female presents to the emergency department via EMS for evaluation of generalized weakness. Patient states that 3-4 days ago, she fell half on the bed and half off the bed. She states she could not get up due to being weak and unable to move. She states she was unable to eat or drink or take any of her medications for this time. She states she finally was able to get the telephone cord to her and she called 911 today. Patient has history of A. fib. She is on 3 L O2 nasal cannula at home. She cannot tell me why she is on O2 at home. Patient was in A. fib with RVR upon EMS arrival received 20 mg' s of Cardizem IV push, 50 mL bolus of IV fluid. Patient is alert and oriented x3 on my exam. She reports cough, shortness of breath, her heart racing. She reports 6/10 generalized abdominal pain. No nausea or vomiting. No diarrhea. She denies any chest pain. Moderate severity. MD Complaint: Reports generalized weakness Onset (ago): day(s) (3-4) Duration: constant Location: Reports generalized Migration: Reports none Severity: moderate Severity scale (1-10): 6 Quality: Reports aching Relieving factors: none Associated symptoms: Reports shortness of breath and other (Abdominal pain); Denies chest pain, confusion, dark stools, diaphoresis, dysuria, easy bruising, fever/chills, headaches, nausea/vomiting and syncope Related Data Home Medications Medication Instructions Recorded Confirmed apixaban [Eliquis] 5 mg PO BID 07/24/18 07/24/18 diltiazem HCl 240 mg PO DAILY 07/24/18 07/24/18 duloxetine 30 mg PO DAILY 07/24/18 07/24/18 prednisone 10 mg PO DAILY 07/24/18 07/24/18 tramadol 50 mg PO Q6H PRN 07/24/18 07/24/18 Allergies Allergy/AdvReac Type Severity Reaction Status Date / Time shellfish derived Allergy Severe Anaphylaxis Verified 07/24/18 10:48 Review of Systems ROS: all other systems reviewed are negative [facility] Medical History Medical History A-fib (Acute) Depression (Acute) GERD (gastroesophageal reflux disease) (Acute) GI bleed (Acute) Gastritis (Acute) History of hysterectomy (Acute) Hyperlipidemia (Acute) Hypotension (Acute) Rheumatoid arthritis (Acute) Surgical History Surgical History History of appendectomy (Acute) Hx of tonsillectomy (Acute) Social History Social History Substance History: No History of Abuse Smoking Status: Former smoker How Often Do You Have a Drink Containing Alcohol: Never Recent Travel in [facility] within the Last 8 Weeks: No Recent Out of Country Travel within the Last 8 Weeks: No Immunization History Tetanus Immunization: Unsure Exam Narrative Exam Narrative: GENERAL: Well-nourished, well-developed female patient, afebrile. Patient is alert and oriented x3 SKIN: Focused skin assessment warm/dry. HEAD: Normocephalic. Atraumatic ENT: Mucosa pink and moist. No erythema or exudates. No uvular edema. No uvular , palatal, or tonsillar deviation. Airway patent. Nasal turbinates appear normal without nasal blood, purulent drainage or septal hematoma. Bilateral tympanic membranes clear without erythema or perforation. EYES: No scleral icterus. No injection or drainage. NECK: Supple, trachea midline. No JVD or lymphadenopathy. CARDIOVASCULAR: Regular rate and rhythm without murmurs, gallops, or rubs. RESPIRATORY: Breath sounds equal bilaterally. No accessory muscle use. GASTROINTESTINAL: Abdomen soft, non-tender, nondistended. MUSCULOSKELETAL: No cyanosis, or edema. Bilateral upper and lower extremity strength 4/5. BACK: Nontender without obvious deformity. No CVA tenderness. Course Initial Documented Vital Signs Temperature 97.9 F 07/24/18 10:44 Pulse Rate 106 H 07/24/18 10:44 Respiratory Rate 18 07/24/18 10:44 Blood Pressure 138/63 07/24/18 10:44 Pulse Oximetry 94 L 07/24/18 10:44 Last Documented Vital Signs Temperature 97.9 F 07/24/18 10:44 Pulse Rate 102 H 07/24/18 13:00 Respiratory Rate 07/24/18 13:00 Blood Pressure 167/67 H 07/24/18 12:47 Pulse Oximetry 97 07/24/18 13:00 Medical Decision Making MDM Narrative Medical decision making narrative: CMP shows elevated BUN 25,83-year-old female presents to the emergency department via EMS for evaluation of generalized weakness, lives alone. IV access obtained. EKG, CBC, CMP, CK, troponin, magnesium, lipase, UA, lactic acid, blood cultures x2 are ordered and pending. Chest x-ray, CT of the head, CT abdomen/pelvis are ordered and pending. CBC shows normal WBC of 8.4 however, patient has 16 band neutrophils, 1+ toxic granulation, toxic vacuolation present. CMP shows no acute abnormality. Troponin is 0.13. Lactic acid is 2.3. CK is 34. Magnesium is 2.0. PT is 12.4 , INR 1.1, PTT 34.5. UA shows moderate occult blood, few bacteria. Chest x- ray shows mild to moderate congestive failure, no significant pleural effusion, moderate elevation of the right hemidiaphragm. CT the head shows no acute findings. CT abdomen/pelvis shows minimal airspace disease right lower lobe, inflammatory process, I do not see etiology of the patient's abdominal pain, moderate degenerative changes lumbar spine. BNP is added onto labs. Patient is given Zosyn 0.4 0.5 g IV. Patient will be admitted for pneumonia, sepsis, elevated troponin. Dr. Velasco accepted admission Medical Screen Exam Complete: Yes Emergency Medical Condition: Yes Differential Diagnosis Differential Diagnosis: pneumonia vs. electrolyte abnormality vs. UTI vs. dehydration vs. A-fib vs. rhabdomyolysis versus intracranial abnormality Medical Records Medical records reviewed: Yes I reviewed the patient's medical records. Lab Data Lab results reviewed: Yes I reviewed the patient's lab results. Result diagrams: 07/24/18 11:21 07/24/18 11:21 Lab Results 07/24/18 07/24/18 07/24/18 Range/Units 11:20 11:21 11:21 WBC 8.4 (4.0-11.0) th/mm3 RBC 5.03 (4.00-5.30) mil/mm3 Hgb 15.8 H (11.6-15.3) gm/dL Hct 45.9 (35.0-46.0) % MCV 91.3 (80.0-100.0) fL MCH 31.4 (27.0-34.0) pg MCHC 34.4 (32.0-36.0) % RDW 14.1 (11.6-17.2) % Plt Count 188 (150-450) th/mm3 MPV 8.2 (7.0-11.0) fL Prelim Diff (Auto) Manual diff required WBC Differential Manual diff final Seg Neuts % (Manual) 76 H (16-70) % Band Neuts % (Manual) 16 H (0-6) % Lymphocytes % (Manual) 5 L (9-44) % Monocytes % (Manual) 3 (0-8) % Abs Neuts (Manual) 7.7 (1.8-7.7) th/mm3 Differential Comment . Toxic Granulation 1+ H (None) Toxic Vacuolation Present H (None) Platelet Estimate Normal (Normal) Platelet Morphology Normal (Normal) PT 11.0 (9.8-11.6) sec INR 1.1 Ratio APTT 27.5 (23.4-31.7) sec Sodium (136-145) meq/L Potassium (3.5-5.1) meq/L Chloride (98-107) meq/L Carbon Dioxide (21.0-32.0) meq/L Anion Gap (5-15) meq/L BUN (7-18) mg/dL Creatinine (0.50-1.00) mg/dL Estimated GFR (>89) mL/min Random Glucose (74-106) mg/dL Lactic Acid (0.4-2.0) mmol/L Calcium (8.5-10.1) mg/dL Magnesium (1.5-2.5) mg/dL Total Bilirubin (0.2-1.0) mg/dL AST (15-37) U/L ALT (10-53) U/L Alkaline Phosphatase (45-117) U/L Total Creatine Kinase (26-192) U/L Troponin I (0.02-0.05) ng/mL Total Protein (6.4-8.2) g/dL Albumin (3.4-5.0) g/dL Lipase (73-393) U/L Urine Color Yellow (Yellw/Straw) Urine Clarity Hazy H (Clear) Urine pH 6.0 (5.0-8.5) Ur Specific [place] 1.020 (1.002-1.035) Urine Protein 30 H (Neg-Trace) mg/dL Urine Glucose (UA) Negative (Negative) mg/dL Urine Ketones 20 (Negative) mg/dL Urine Occult Blood Moderate H (Negative) Urine Nitrate Negative (Negative) Urine Bilirubin Negative (Negative) Urine Urobilinogen Less than 2 (Less than 2) mg/dL Ur Leukocyte Esterase Negative (Negative) Urine RBC 24 H (0-3) /hpf Urine WBC 3 (0-5) /hpf Ur Squamous Epith Cells 1 (0-5) /hpf Urine Bacteria Few H (None) /hpf Hyaline Casts 1 (0-3) /lpf Urine Mucus Many H (Occasional) /lpf Micro UA Comment Cath-culture ind Ur Microscopic Review Not Reportable Urine Culture Comments Cath-cult indicated 07/24/18 07/24/18 Range/Units 11:21 11:23 WBC (4.0-11.0) th/mm3 RBC (4.00-5.30) mil/mm3 Hgb (11.6-15.3) gm/dL Hct (35.0-46.0) % MCV (80.0-100.0) fL MCH (27.0-34.0) pg MCHC (32.0-36.0) % RDW (11.6-17.2) % Plt Count (150-450) th/mm3 MPV (7.0-11.0) fL Prelim Diff (Auto) WBC Differential Seg Neuts % (Manual) (16-70) % Band Neuts % (Manual) (0-6) % Lymphocytes % (Manual) (9-44) % Monocytes % (Manual) (0-8) % Abs Neuts (Manual) (1.8-7.7) th/mm3 Differential Comment Toxic Granulation (None) Toxic Vacuolation (None) Platelet Estimate (Normal) Platelet Morphology (Normal) PT (9.8-11.6) sec INR Ratio APTT (23.4-31.7) sec Sodium 138 (136-145) meq/L Potassium 3.8 (3.5-5.1) meq/L Chloride 102 (98-107) meq/L Carbon Dioxide 24.8 (21.0-32.0) meq/L Anion Gap 11 (5-15) meq/L BUN 25 H (7-18) mg/dL Creatinine 0.76 (0.50-1.00) mg/dL Estimated GFR 72 L (>89) mL/min Random Glucose 89 (74-106) mg/dL Lactic Acid 2.3 H (0.4-2.0) mmol/L Calcium 8.9 (8.5-10.1) mg/dL Magnesium 2.0 (1.5-2.5) mg/dL Total Bilirubin 0.8 (0.2-1.0) mg/dL AST 31 (15-37) U/L ALT 17 (10-53) U/L Alkaline Phosphatase 92 (45-117) U/L Total Creatine Kinase 34 (26-192) U/L Troponin I 0.13 H (0.02-0.05) ng/mL Total Protein 7.9 (6.4-8.2) g/dL Albumin 3.3 L (3.4-5.0) g/dL Lipase 93 (73-393) U/L Urine Color (Yellw/Straw) Urine Clarity (Clear) Urine pH (5.0-8.5) Ur Specific [place] (1.002-1.035) Urine Protein (Neg-Trace) mg/dL Urine Glucose (UA) (Negative) mg/dL Urine Ketones (Negative) mg/dL Urine Occult Blood (Negative) Urine Nitrate (Negative) Urine Bilirubin (Negative) Urine Urobilinogen (Less than 2) mg/dL Ur Leukocyte Esterase (Negative) Urine RBC (0-3) /hpf Urine WBC (0-5) /hpf Ur Squamous Epith Cells (0-5) /hpf Urine Bacteria (None) /hpf Hyaline Casts (0-3) /lpf Urine Mucus (Occasional) /lpf Micro UA Comment Ur Microscopic Review Urine Culture Comments Imaging Data Radiologist's impression: Chest X-Ray 07/24/18 11:12 CONCLUSION: Mild to moderate congestive failure No significant pleural effusion Moderate elevation of the right hemidiaphragm Head CT 07/24/18 11:12 CONCLUSION: No acute findings . Abdomen/Pelvis CT 07/24/18 11:14 Review of bone windows reveals significant degenerative changes in the thoracolumbar spine. CONCLUSION: 1. Minimal airspace disease right lower lobe. Inflammatory process 2. I do not see an etiology of patient's abdominal pain. 3. Moderate degenerative changes in the lumbar spine. Discharge Plan Discharge Disposition Patient Disposition: ED Admit(ED Internal Use Only) Discharge Order Discharge Orders: ED Use Only Admit Order (Routine); Ordered 07/24/18 Ordered By: Juani Mendoza Discharge Details Diagnosis: Pneumonia, Sepsis, Elevated troponin Physicians Team ED Provider: Mark Anthony Sanchez ED Midlevel Provider: Juani Mendoza Primary Care Provider: UNKNOWN, Rxs /Orders / Referrals /Forms Prescriptions: No Action prednisone 10 mg Tablet 10 mg PO DAILY RF: 0 diltiazem HCl 240 mg Capsule,Extended Release 24 Hr 240 mg PO DAILY RF: 0 tramadol 50 mg Tablet 50 mg PO Q6H PRN (Reason: Pain) RF: 0 duloxetine 30 mg Capsule,Delayed Release(Dr/Ec) 30 mg PO DAILY RF: 0 apixaban [Eliquis] 5 mg Tablet 5 mg PO BID RF: 0 Status ED Status: With Doctor
[2018-07-24] MEDS ORDERED: Acetaminophen 325 MG Tablet PO PRN (13:23)
[2018-07-24] MEDS: Sod Chloride 0.9% Inj 1,000 ML IV.CONT SCH (14:38)
[2018-07-24] MEDS ORDERED: Benzonatate 100 MG Capsule PO PRN (14:43)
--- NOTE | 2018-07-24 14:53 | P.HP ---
History of Present Illness Primary Care Physician: UNKNOWN Chief Complaint: Generalized weakness History of Present Illness: 83-year-old female with a past medical history of A. fib, hypothyroidism was brought to the ED by EMS for evaluation of global weakness, nonproductive cough times 4 days duration. Apparently, patient state she fell hard on the bed and half of the beds 4 days ago, and was unable to get up due to generalized weakness. She reports that, over the past 3-4 days she has not been able to move or take her medications due to the fact that she has not been able to drink. She was finally able to call 911 today July 24, 2018 and patient was brought to the ED. While in the ED, patient was found to be in A. fib with RVR for which he was given Cardizem IV push. She denies any chest pain or heart palpitation. She is on 3 L nasal cannula. Although chest x-ray was unremarkable, CT abdomen revealed questionable Minimal airspace disease right lower lobe. Patient is currently afebrile. She also complained of abdominal pain, rated 7 out of 10 [address] intensity for [address] CT scans were ordered. She denies any nausea or emesis. Review of Systems All other systems reviewed negative except as stated in HPI PMFSH - History History Provided By: Patient - Medical History Medical History: Medical History (Last Reviewed 07/24/18 @ 12:56 by MICHEL Theodore) A-fib Depression GERD (gastroesophageal reflux disease) GI bleed Gastritis History of hysterectomy Hyperlipidemia Hypotension Rheumatoid arthritis - Surgical History Surgical History: Surgical History (Last Reviewed 07/24/18 @ 12:56 by MICHEL Theodore) History of appendectomy Hx of tonsillectomy - Family History Family History: Family History (Last Updated 07/24/18 @ 14:49 by Manuel Velasco MD) Other Heart disease Pancreatic cancer - Tobacco History Smoking Status: Former smoker - Alcohol History How Often Do You Have a Drink Containing Alcohol: Never - Substance Use History Substance History: No History of Abuse - Travel History Recent Travel in the [place] Within the Last 8 Weeks: No Recent Travel Out of the Country Within the Last 8 Weeks: No - Immunization History Tetanus Immunization: Unsure Medications and Allergies Active Medications: Active Medications Acetaminophen (Tylenol) 650 mg PO Q4H PRN PRN Reason: Temp > 100.4 Al Hydroxide/Mg Hydroxide (Milk Of Magnesia Liq) 30 ml PO Q12H PRN PRN Reason: Mild Constipation Albuterol (Duoneb Neb (Prn)) 1 ampul NEB Q2HR NEB PRN PRN Reason: SHORTNESS OF BREATH Albuterol (Duoneb Neb (Angeli)) 1 ampul NEB Q6HR WHILE AWAKE NEB ANGELI Apixaban (Eliquis) 5 mg PO BID ANGELI Benzonatate (Tessalon Perles) 100 mg PO Q8H PRN PRN Reason: COUGH Diltiazem HCl (Cardizem Cd 24hr) 240 mg PO DAILY ANGELI Duloxetine HCl (Cymbalta) 30 mg PO DAILY ANGELI Piperacillin/Tazobactam/Dextrose (Zosyn 4.5 Gm Premix) 4.5 gm in 100 mls @ 200 mls/hr IV.SIG ONCE ANGELI Stop: 07/24/18 16:00 Last Infusion: 07/24/18 13:20 Dose: Infused Sodium Chloride (Ns Inj) 1,000 mls @ 70 mls/hr IV.CONT .[id number] ANGELI Last Admin: 07/24/18 14:38 Dose: 100 mls/hr Azithromycin 250 mg/ Sodium (Chloride) 250 mls @ 250 mls/hr IV.SIG Q24H ANGELI Ceftriaxone Sodium 1,000 mg/ (Sodium Chloride) 100 mls @ 200 mls/hr IV.SIG Q24H ANGELI Ondansetron HCl (Zofran Inj) 4 mg IV.PUSH Q6H PRN PRN Reason: NAUSEA OR VOMITING Prednisone (Deltasone) 10 mg PO DAILY ANGELI Sodium Chloride (Ns Flush) 2 ml IV.FLUSH PRN PRN PRN Reason: FLUSH AFTER USING IV ACCESS Sodium Chloride (Ns Flush) 2 ml IV.FLUSH BID [facility] Allergies Allergy/AdvReac Type Severity Reaction Status Date / Time shellfish derived Allergy Severe Anaphylaxis Verified 07/24/18 10:48 Home Medications Medication Instructions Recorded Confirmed Type apixaban [Eliquis] 5 mg PO BID 07/24/18 07/24/18 History diltiazem HCl 240 mg PO DAILY 07/24/18 07/24/18 History duloxetine 30 mg PO DAILY 07/24/18 07/24/18 History prednisone 10 mg PO DAILY 07/24/18 07/24/18 History tramadol 50 mg PO Q6H PRN 07/24/18 07/24/18 History Exam Vital signs: Vital Signs 07/24/18 10:44 07/24/18 11:15 07/24/18 11:17 Temperature 97.9 F Pulse Rate 106 H 92 H Respiratory Rate 18 Blood Pressure 138/63 Pulse Oximetry 94 L 95 07/24/18 11:21 07/24/18 11:23 07/24/18 12:06 Temperature Pulse Rate 109 H 100 H 108 H Respiratory Rate 20 20 20 Blood Pressure 153/66 H Pulse Oximetry 96 96 92 L 07/24/18 12:47 07/24/18 13:00 07/24/18 14:00 Temperature Pulse Rate 96 H 102 H 104 H Respiratory Rate 29 H 19 33 H Blood Pressure 167/67 H 128/63 Pulse Oximetry 95 97 100 Intake & Output 07/23/18 07/24/18 07/24/18 18:59 06:59 18:59 Intake Total 600 / 600 Balance 600 / 600 Weight 77.111 kg Intake: IV 600 / 600 Zosyn 4.5 GM Premix 4.5 gm In 100 / 100 100 ml @ 200 mls/hr IV.SIG ONCE ANGELI Rx#:[id number] NS Inj 500 ML @ Wide Open IV. 500 / 500 SIG BOLUS ONE Rx#:[id number] Narrative: GENERAL: NAD SKIN: Warm and dry. HEAD: Atraumatic. Normocephalic. EYES: Pupils equal and round. No scleral icterus. No injection or drainage. ENT: No nasal bleeding or discharge. Mucous membranes pink and moist. NECK: Trachea midline. No JVD. CARDIOVASCULAR: Irregular regular rate and rhythm. RESPIRATORY: No accessory muscle use. Clear to auscultation. Breath sounds equal bilaterally. Expiratory wheezes L>R GASTROINTESTINAL: Abdomen soft, non-tender, nondistended. Hepatic and splenic margins not palpable. MUSCULOSKELETAL: Extremities without clubbing, cyanosis, or edema. No obvious deformities. NEUROLOGICAL: Awake and alert. No obvious cranial nerve deficits. Motor grossly within normal limits. Five out of 5 muscle strength in the arms and legs. Normal speech. PSYCHIATRIC: Appropriate mood and affect; insight and judgment normal. Results - Labs CBC & Chem 7: 07/24/18 11:21 07/24/18 11:21 Labs: Laboratory Results - last 24 hr 07/24/18 07/24/18 07/24/18 11:20 11:21 11:21 WBC 8.4 RBC 5.03 Hgb 15.8 H Hct 45.9 MCV 91.3 MCH 31.4 MCHC 34.4 RDW 14.1 Plt Count 188 MPV 8.2 Prelim Diff (Auto) Manual diff required WBC Differential Manual diff final Seg Neuts % (Manual) 76 H Band Neuts % (Manual) 16 H Lymphocytes % (Manual) 5 L Monocytes % (Manual) 3 Abs Neuts (Manual) 7.7 Differential Comment . Toxic Granulation 1+ H Toxic Vacuolation Present H Platelet Estimate Normal Platelet Morphology Normal PT 11.0 INR 1.1 APTT 27.5 Sodium Potassium Chloride Carbon Dioxide Anion Gap BUN Creatinine Estimated GFR Random Glucose Lactic Acid Calcium Magnesium Total Bilirubin AST ALT Alkaline Phosphatase Total Creatine Kinase Troponin I B-Natriuretic Peptide Total Protein Albumin Lipase Urine Color Yellow Urine Clarity Hazy H Urine pH 6.0 Ur Specific [place] 1.020 Urine Protein 30 H Urine Glucose (UA) Negative Urine Ketones 20 Urine Occult Blood Moderate H Urine Nitrate Negative Urine Bilirubin Negative Urine Urobilinogen Less than 2 Ur Leukocyte Esterase Negative Urine RBC 24 H Urine WBC 3 Ur Squamous Epith Cells 1 Urine Bacteria Few H Hyaline Casts 1 Urine Mucus Many H Micro UA Comment Cath-culture ind Ur Microscopic Review Not Reportable Urine Culture Comments Cath-cult indicated 07/24/18 07/24/18 07/24/18 11:21 11:21 11:23 WBC RBC Hgb Hct MCV MCH MCHC RDW Plt Count MPV Prelim Diff (Auto) WBC Differential Seg Neuts % (Manual) Band Neuts % (Manual) Lymphocytes % (Manual) Monocytes % (Manual) Abs Neuts (Manual) Differential Comment Toxic Granulation Toxic Vacuolation Platelet Estimate Platelet Morphology PT INR APTT Sodium 138 Potassium 3.8 Chloride 102 Carbon Dioxide 24.8 Anion Gap 11 BUN 25 H Creatinine 0.76 Estimated GFR 72 L Random Glucose 89 Lactic Acid 2.3 H Calcium 8.9 Magnesium 2.0 Total Bilirubin 0.8 AST 31 ALT 17 Alkaline Phosphatase 92 Total Creatine Kinase 34 Troponin I 0.13 H B-Natriuretic Peptide 56 Total Protein 7.9 Albumin 3.3 L Lipase 93 Urine Color Urine Clarity Urine pH Ur Specific [place] Urine Protein Urine Glucose (UA) Urine Ketones Urine Occult Blood Urine Nitrate Urine Bilirubin Urine Urobilinogen Ur Leukocyte Esterase Urine RBC Urine WBC Ur Squamous Epith Cells Urine Bacteria Hyaline Casts Urine Mucus Micro UA Comment Ur Microscopic Review Urine Culture Comments 07/24/18 13:31 WBC RBC Hgb Hct MCV MCH MCHC RDW Plt Count MPV Prelim Diff (Auto) WBC Differential Seg Neuts % (Manual) Band Neuts % (Manual) Lymphocytes % (Manual) Monocytes % (Manual) Abs Neuts (Manual) Differential Comment Toxic Granulation Toxic Vacuolation Platelet Estimate Platelet Morphology PT INR APTT Sodium Potassium Chloride Carbon Dioxide Anion Gap BUN Creatinine Estimated GFR Random Glucose Lactic Acid 2.4 H Calcium Magnesium Total Bilirubin AST ALT Alkaline Phosphatase Total Creatine Kinase Troponin I B-Natriuretic Peptide Total Protein Albumin Lipase Urine Color Urine Clarity Urine pH Ur Specific [place] Urine Protein Urine Glucose (UA) Urine Ketones Urine Occult Blood Urine Nitrate Urine Bilirubin Urine Urobilinogen Ur Leukocyte Esterase Urine RBC Urine WBC Ur Squamous Epith Cells Urine Bacteria Hyaline Casts Urine Mucus Micro UA Comment Ur Microscopic Review Urine Culture Comments - Imaging Impressions Chest X-Ray 07/24/18 11:12 CONCLUSION: Mild to moderate congestive failure No significant pleural effusion Moderate elevation of the right hemidiaphragm Head CT 07/24/18 11:12 CONCLUSION: No acute findings . Abdomen/Pelvis CT 07/24/18 11:14 Review of bone windows reveals significant degenerative changes in the thoracolumbar spine. CONCLUSION: 1. Minimal airspace disease right lower lobe. Inflammatory process 2. I do not see an etiology of patient's abdominal pain. 3. Moderate degenerative changes in the lumbar spine. Caprini VTE Risk Assessment Caprini VTE Risk Assessment: Moderate/High Risk (score >= 2) Caprini Risk Assessment Model: Point Value = 1 Point Value = 2 Point Value = 3 Point Value = 5 Age 41-60 Minor surgery BMI > 25 kg/m2 Swollen legs Varicose veins or History of unexplained or recurrent spontaneous Oral contraceptives or hormone replacement Sepsis (< 1 month) Serious lung disease, including pneumonia (< 1 month) Abnormal pulmonary function Acute myocardial infarction Congestive heart failure (< 1 month) History of inflammatory bowel disease Medical patient at bed rest Age 61-74 Arthroscopic surgery Major open surgery (> 45 min) Laparoscopic surgery (> 45 min) Malignancy Confined to bed (> 72 hours) Immobilizing plaster cast Central venous access Age >= 75 History of VTE Family history of VTE Factor V Leiden Prothrombin [id number] Lupus anticoagulant Anticardiolipin antibodies Elevated serum homocysteine Heparin-induced thrombocytopenia Other congenital or acquired thrombophilia Stroke (< 1 month) Elective arthroplasty Hip, pelvis, or leg fracture Acute spinal cord injury (< 1 month) Prophylaxis Regimen: Total Risk Factor Score Risk Level Prophylaxis Regimen 0-1 Low Early ambulation 2 Moderate Order ONE of the following: *Sequential Compression Device (SCD) *Heparin 5000 units SQ BID 3-4 Higher Order ONE of the following medications: *Heparin 5000 units SQ TID *Enoxaparin/Lovenox 40 mg SQ daily (WT < 150 kg, CrCl > 30 mL/min) *Enoxaparin/Lovenox 30 mg SQ daily (WT < 150 kg, CrCl > 10-29 mL/min) *Enoxaparin/Lovenox 30 mg SQ BID (WT < 150 kg, CrCl > 30 mL/min) AND/OR *Sequential Compression Device (SCD) 5 or more Highest Order ONE of the following medications: *Heparin 5000 units SQ TID (Preferred with Epidurals) *Enoxaparin/Lovenox 40 mg SQ daily (WT < 150 kg, CrCl > 30 mL/min) *Enoxaparin/Lovenox 30 mg SQ daily (WT < 150 kg, CrCl > 10-29 mL/min) *Enoxaparin/Lovenox 30 mg SQ BID (WT < 150 kg, CrCl > 30 mL/min) AND *Sequential Compression Device (SCD) Assessment and Plan - Plan 83-year-old female with History of atrial fibrillation Initially presented in the ED with Lianne vila with RVR, resolved status post IV Cardizem push Resume Eliquis, Cardizem Telemetry monitoring Elevated cardiac enzyme Patient denies any chest pain Unlikely ACS, however will continue to trend cardiac enzymes Global weakness PT consult to treat and eval Questionable pneumonia CT abdomen/L Edinks noted and reviewed by me with finding of Minimal airspace disease right lower lobe The presence of nonproductive cough and severe lactic acidosis, will continue with IV antibiotics However will start azithromycin and Rocephin IV Check sputum culture DuoNeb scheduled and as needed Lactic acidosis Continue with IV fluid resuscitation, IV antibiotics per above Chronic other medical conditions Resume outpatient medications DVT prophylaxis: Eliquis
[2018-07-24] MEDS: Azithromycin Inj 250 MG in Sodium Chlor 0.9% Inj 250 ML IV.SIG SCH (15:02)
[2018-07-24 20:19] LABS: Troponin I 0.12 ng/mL (0.02-0.05)
--- NOTE | 2018-07-24 20:52 | ECG ---
Date Performed: 07/24/2018 Time Performed: 10:42:18 PTAGE: 83 years EKG: ATRIAL FIBRILLATION MARKED LEFT AXIS DEVIATION NONSPECIFIC ST & T-WAVE ABNORMALITY ABNORMAL ECG NO PREVIOUS TRACING DOCTOR: Ever Christian Interpretating Date/Time 07/24/2018 20:50:51
[2018-07-25] MEDS: Sod Chloride 0.9% Inj 1,000 ML IV.CONT SCH ×2 (02:53→15:38)
[2018-07-25 07:00] LABS: Baso % (Auto) 0.4 % (0.0-2.0); Eos % (Auto) 0.2 % (0.0-4.0); Hematocrit 39.2 % (35.0-46.0); Hemoglobin 13.3 gm/dL (11.6-15.3); Lymph # (Auto) 0.7 th/mm3 (1.0-4.8); Lymph % (Auto) 8.6 % (9.0-44.0); Mean Corpuscular HGB Conc 33.8 % (32.0-36.0); Mean Corpuscular Hemoglobin 30.8 pg (27.0-34.0); Mean Corpuscular Volume 90.9 fL (80.0-100.0); Mean Platelet Volume 7.3 fL (7.0-11.0); Mono # (Auto) 0.8 th/mm3 (0.0-0.9); Mono % (Auto) 9.9 % (0.0-8.0); Neut # (Auto) 6.4 th/mm3 (1.8-7.7); Neut % (Auto) 80.9 % (16.0-70.0); Platelet Count 149 th/mm3 (150-450); Red Blood Count 4.31 mil/mm3 (4.00-5.30); Red Cell Distribution Width 13.3 % (11.6-17.2); White Blood Count 7.9 th/mm3 (4.0-11.0)
[2018-07-25 07:36] LABS: Alanine Aminotransferase 12 U/L (10-53); Albumin 2.6 g/dL (3.4-5.0); Alkaline Phosphatase 74 U/L (45-117); Anion Gap 8 meq/L (5-15); Aspartate Aminotransferase 23 U/L (15-37); Blood Urea Nitrogen 20 mg/dL (7-18); Calcium 8.4 mg/dL (8.5-10.1); Carbon Dioxide 27.4 meq/L (21.0-32.0); Chloride 110 meq/L (98-107); Glomerular Filtration Rate 76 mL/min (>89); Glucose,Random 88 mg/dL (74-106); Potassium 3.8 meq/L (3.5-5.1); Sodium 145 meq/L (136-145); Total Protein 6.4 g/dL (6.4-8.2)
[2018-07-25] MEDS: predniSONE 10 MG Tablet PO SCH (08:56)
[2018-07-25] MEDS: dilTIAZem CD 240 MG Capsule PO SCH (08:56)
--- NOTE | 2018-07-25 10:29 | P.PNIM ---
Subjective Interval history: Patient reports no active shortness of breath still feels weak usually ambulates independently. Is currently on 3 L of oxygen at home. Did not have problems with urinating previously. Physical Exam Vital signs: Last Vital Signs Temp 97.6 F 07/25/18 08:00 Pulse 115 H 07/25/18 08:00 Resp 15 07/25/18 08:00 BP 136/69 07/25/18 08:00 Pulse Ox 96 07/25/18 08:00 Intake & Output 07/23/18 07/24/18 07/25/18 07/26/18 06:59 06:59 06:59 06:59 Intake Total 2330 / 2330 Balance 2330 / 2330 Weight 81.3 kg Narrative: GENERAL: Well-nourished well-developed female in NAD CARDIOVASCULAR: Irregular regular rate and rhythm. RESPIRATORY: Few right basilar crackles GASTROINTESTINAL: Abdomen soft, non-tender, nondistended. Obese Musculoskeletal trace to 1+edema bilaterally. No obvious deformities. NEUROLOGICAL: Awake and alert to person place time. No obvious cranial nerve deficits. Motor grossly within normal limits. . Urinary Catheter Management Straight: Cath placed during this visit: yes Urethral indwelling: Yes Reason for continuing: Decision to DC catheter Insertion date: 07/24/18 Insertion time: 14:40 Results Labs CBC & Chem 7: 07/25/18 06:31 07/25/18 06:31 Imaging Imaging: Impressions Chest X-Ray 07/24/18 11:12 CONCLUSION: Mild to moderate congestive failure No significant pleural effusion Moderate elevation of the right hemidiaphragm Head CT 07/24/18 11:12 CONCLUSION: No acute findings . Abdomen/Pelvis CT 07/24/18 11:14 Review of bone windows reveals significant degenerative changes in the thoracolumbar spine. CONCLUSION: 1. Minimal airspace disease right lower lobe. Inflammatory process 2. I do not see an etiology of patient's abdominal pain. 3. Moderate degenerative changes in the lumbar spine. Assessment and Plan (1) Severe sepsis: Code(s): A41.9 - Sepsis, unspecified organism; R65.20 - Severe sepsis without septic shock Status: Acute (2) Community acquired pneumonia: Code(s): J18.9 - Pneumonia, unspecified organism Status: Acute Plan 83-year-old white female with past medical history atrial fibrillation, hypothyroidism presents to the emergency room with 4-day history of nonproductive cough with global weakness on chronic 3 L of oxygen with. Severe sepsis present on admission due to tachycardia and tachypnea with lactic acid 2.3 with source of community acquired pneumonia. Community-acquired pneumoniacontinue with Rocephin and Zithromax, follow-up with blood cultures. Continue oxygen support, patient currently on 3 L of chronic O2 at home. Continue with DuoNeb scheduled. Atrial fibrillation with rapid ventricular rate on presentationlikely due to sepsis, on Cardizem, give extra dose today, continue with Eliquis. Mild elevation in troponin I on presentation with no complaints of chest pain repeat levels trended down no further workup at this time Deconditioning due to sepsis, pneumoniaphysical therapy evaluation, likely will need home health care with physical therapy upon discharge to home Progress Note: Quality VTE Deep Vein Thrombosis/Pulmonary Embolism Present on Admission: No
[2018-07-25] MEDS ORDERED: dilTIAZem CD 120 MG Capsule PO ONE (10:42)
--- NOTE | 2018-07-25 10:44 | P.DCO ---
Diagnosis (1) Severe sepsis: Status: Acute (2) Community acquired pneumonia: Status: Acute Physical Therapy Order: Evaluate and treat Home Health Nursing Order: Nursing assessment with vital signs Case Management Consult Case Management Consult-Home Health: Yes I have seen patient Chastity Peraza on 07/25/18. My clinical findings support the need for the requested home health care services because: Deconditioned with increased weakness I certify that my clinical findings support that this patient is homebound because: Unsafe to leave home unassisted
[2018-07-25] MEDS: Azithromycin Inj 250 MG in Sodium Chlor 0.9% Inj 250 ML IV.SIG SCH (15:54)
--- NOTE | 2018-07-26 01:10 | ECG ---
Date Performed: 07/24/2018 Time Performed: 20:54:46 PTAGE: 83 years EKG: ATRIAL FIBRILLATION WITH RAPID VENTRICULAR RESPONSE MARKED LEFT AXIS DEVIATION PATTERN CONS ISTENT WITH PULMONARY DISEASE NONSPECIFIC ST & T-WAVE ABNORMALITY ABNORMAL ECG PREVIOUS TRACING : 07/24/2018 10.42 Compared to previous tracing, rate has increased DOCTOR: Jared Veras Interpretating Date/Time 07/26/2018 01:08:32
[2018-07-26] MEDS: Sod Chloride 0.9% Inj 1,000 ML IV.CONT SCH (04:23)
[2018-07-26 06:05] VITALS: O2SAT 98
[2018-07-26] MEDS ORDERED: Azithromycin 250 MG Tablet PO SCH (09:00)
[2018-07-26] MEDS: dilTIAZem CD 240 MG Capsule PO SCH (09:57)
[2018-07-26] MEDS: predniSONE 10 MG Tablet PO SCH (09:58)
--- NOTE | 2018-07-26 12:37 | P.DS ---
Date of admission: 07/24/18 13:20 Primary care physician: UNKNOWN Brief History from admission: 83-year-old female with a past medical history of A. fib, hypothyroidism was brought to the ED by EMS for evaluation of global weakness, nonproductive cough times 4 days duration. Apparently, patient state she fell hard on the bed and half of the beds 4 days ago, and was unable to get up due to generalized weakness. She reports that, over the past 3-4 days she has not been able to move or take her medications due to the fact that she has not been able to drink. She was finally able to call 911 today July 24, 2018 and patient was brought to the ED. While in the ED, patient was found to be in A. fib with RVR for which he was given Cardizem IV push. She denies any chest pain or heart palpitation. She is on 3 L nasal cannula. Although chest x-ray was unremarkable, CT abdomen revealed questionable Minimal airspace disease right lower lobe. Patient is currently afebrile. She also complained of abdominal pain, rated 7 out of 10 in intensity for which CT scans were ordered. She denies any nausea or emesis. DS: Diagnosis - Discharge Diagnosis (1) Severe sepsis Status: Acute (2) Community acquired pneumonia Status: Acute DS: Summary Hospital Course: 83-year-old white female with past medical history atrial fibrillation, hypothyroidism presents to the emergency room with 4-day history of nonproductive cough with global weakness on chronic 3 L of oxygen with. //Severe sepsis present on admission due to tachycardia and tachypnea with lactic acid 2.3 with source of community acquired pneumonia. //Community-acquired pneumoniacontinue with Rocephin and Zithromax, follow-up with blood cultures. Continue oxygen support, patient currently on 3 L of chronic O2 at home. Continue with DuoNeb scheduled. //Atrial fibrillation with rapid ventricular rate on presentationlikely due to sepsis, on Cardizem, give extra dose today, continue with Eliquis. //Mild elevation in troponin I on presentation with no complaints of chest pain repeat levels trended down no further workup at this time //Deconditioning due to sepsis, pneumoniaphysical therapy evaluation, likely will need home health care with physical therapy upon discharge to home Discussed Condition With: Patient, nurse, child welfare caseworker. Discharge Planning: Discharge home today with home health. - Time Spent with Patient Total time spent providing and/or coordinating discharge services: Greater than 30 minutes - Quality: VTE Deep Vein Thrombosis/Pulmonary Embolism Present on Admission: No Exam Vital signs: Vital Signs 07/25/18 16:00 07/25/18 16:49 07/25/18 19:52 Temperature 97.2 F L Pulse Rate 88 93 H 106 H Respiratory Rate 17 Blood Pressure 141/60 H Pulse Oximetry 98 07/25/18 20:00 07/25/18 20:19 07/25/18 23:52 Temperature 97.8 F Pulse Rate 77 77 105 H Respiratory Rate 20 18 Blood Pressure 145/66 H Pulse Oximetry 98 98 07/26/18 00:00 07/26/18 03:51 07/26/18 04:00 Temperature 98.0 F 97.7 F Pulse Rate 104 H 97 H 104 H Respiratory Rate 20 20 Blood Pressure 115/59 L 142/72 H Pulse Oximetry 97 98 07/26/18 08:00 07/26/18 08:08 07/26/18 08:14 Temperature 97.5 F L Pulse Rate 74 92 H Respiratory Rate 18 14 Blood Pressure 139/68 Pulse Oximetry 95 98 Intake & Output 07/25/18 07/26/18 07/26/18 18:59 06:59 18:59 Intake Total 1385 / 1385 1120 / 1120 100 / 100 Output Total 300 / 300 Balance 1385 / 1385 820 / 820 100 / 100 Weight 107.2 kg 76.7 kg Intake: IV 350 / 350 1000 / 1000 100 / 100 NS Inj 1,000 ML @ 70 mls/hr IV. 1000 / 1000 CONT .[id number] FREDO Rx#:[id number] Azithromycin Inj 250 MG In NS 250 / 250 Inj 250 ML @ 250 mls/hr IV.SIG Q24H FREDO Rx#:[id number] Rocephin Inj 1,000 MG In NS Inj 100 / 100 100 / 100 100 ML @ 200 mls/hr IV.SIG Q24H FREDO Rx#:[id number] Oral 120 / 120 Other 1035 / 1035 Output: Urine 300 / 300 Other: Date of Last Bowel Movement 07/26/18 # Bowel Movements 0 Results Procedures completed during hospitalization: No invasive procedures. Labs on day of discharge: Preliminary micro results at discharge 07/24/18 11:17 Aerobic Blood Culture - Preliminary Blood - Peripheral No growth in 2 days Anaerobic Blood Culture - Preliminary No growth in 2 days 07/24/18 11:15 Aerobic Blood Culture - Preliminary Blood - Peripheral No growth in 2 days Anaerobic Blood Culture - Preliminary No growth in 2 days - Impressions ITS Impressions Chest X-Ray 07/24/18 11:12 CONCLUSION: Mild to moderate congestive failure No significant pleural effusion Moderate elevation of the right hemidiaphragm Head CT 07/24/18 11:12 CONCLUSION: No acute findings . Abdomen/Pelvis CT 07/24/18 11:14 Review of bone windows reveals significant degenerative changes in the thoracolumbar spine. CONCLUSION: 1. Minimal airspace disease right lower lobe. Inflammatory process 2. I do not see an etiology of patient's abdominal pain. 3. Moderate degenerative changes in the lumbar spine. Discharge Plan - Discharge Order Discharge Orders: Discharge Order (Routine); Ordered 07/26/18 Ordered By: Arya Klein - Discharge Details Anticipated Discharge Date: 07/26/18 - Physicians Team Primary Care Provider: UNKNOWN, Attending Provider: Arya Klein
--- NOTE | 2018-07-26 12:37 | P.PNIM ---
Subjective Interval history: She says she would like to go home. Reports that breathing much improved. Says she is on 3 L of oxygen at home. Physical Exam Vital signs: Vital Signs 07/25/18 12:30 07/25/18 16:00 07/25/18 16:49 Temperature 97.2 F L Pulse Rate 70 88 93 H Respiratory Rate 16 17 Blood Pressure 141/60 H Pulse Oximetry 98 07/25/18 19:52 07/25/18 20:00 07/25/18 20:19 Temperature 97.8 F Pulse Rate 106 H 77 77 Respiratory Rate 20 18 Blood Pressure 145/66 H Pulse Oximetry 98 98 07/25/18 23:52 07/26/18 00:00 07/26/18 03:51 Temperature 98.0 F Pulse Rate 105 H 104 H 97 H Respiratory Rate 20 Blood Pressure 115/59 L Pulse Oximetry 97 07/26/18 04:00 07/26/18 08:00 07/26/18 08:08 Temperature 97.7 F 97.5 F L Pulse Rate 104 H 98 H 92 H Respiratory Rate 20 18 14 Blood Pressure 142/72 H 139/68 Pulse Oximetry 98 95 07/26/18 08:14 Temperature Pulse Rate Respiratory Rate Blood Pressure Pulse Oximetry 98 Intake & Output 07/25/18 07/26/18 07/26/18 18:59 06:59 18:59 Intake Total 1385 / 1385 1120 / 1120 100 / 100 Output Total 300 / 300 Balance 1385 / 1385 820 / 820 100 / 100 Weight 107.2 kg 76.7 kg Intake: IV 350 / 350 1000 / 1000 100 / 100 NS Inj 1,000 ML @ 70 mls/hr IV. 1000 / 1000 CONT .[id number] [facility] Rx#:[id number] Azithromycin Inj 250 MG In NS 250 / 250 Inj 250 ML @ 250 mls/hr IV.SIG Q24H [facility] Rx#:[id number] Rocephin Inj 1,000 MG In NS Inj 100 / 100 100 / 100 100 ML @ 200 mls/hr IV.SIG Q24H [facility] Rx#:[id number] Oral 120 / 120 Other 1035 / 1035 Output: Urine 300 / 300 Other: # Bowel Movements 0 Narrative: GENERAL: Patient sitting up in bed. Appears comfortable. Alert and oriented x4. SKIN: Warm and dry. HEAD: Normocephalic. EYES: No scleral icterus. No injection or drainage. NECK: Supple, trachea midline. No JVD. CARDIOVASCULAR: Regular rate and rhythm without murmurs, gallops, or rubs. RESPIRATORY: Breath sounds equal bilaterally. No accessory muscle use. GASTROINTESTINAL: Abdomen soft, non-tender, nondistended. MUSCULOSKELETAL: No cyanosis, or edema. BACK: Nontender without obvious deformity. No CVA tenderness. - Urinary Catheter Management Straight Cath placed during this visit: yes Urethral indwelling: Yes Reason for continuing: Decision to DC catheter Insertion date: 07/24/18 Insertion time: 14:40 Results - Labs CBC & Chem 7: 07/25/18 06:31 07/25/18 06:31 Microbiology 07/24/18 11:17 Blood - Peripheral Aerobic Blood Culture - Preliminary No growth in 2 days 07/24/18 11:17 Blood - Peripheral Anaerobic Blood Culture - Preliminary No growth in 2 days 07/24/18 11:15 Blood - Peripheral Aerobic Blood Culture - Preliminary No growth in 2 days 07/24/18 11:15 Blood - Peripheral Anaerobic Blood Culture - Preliminary No growth in 2 days 07/24/18 11:20 Catheterized Urine Urine Culture - Final No growth in 48 hours Assessment and Plan - Assessment (1) Severe sepsis Code(s): A41.9 - Sepsis, unspecified organism; R65.20 - Severe sepsis without septic shock Status: Acute (2) Community acquired pneumonia Code(s): J18.9 - Pneumonia, unspecified organism Status: Acute - Plan 83-year-old white female with past medical history atrial fibrillation, hypothyroidism presents to the emergency room with 4-day history of nonproductive cough with global weakness on chronic 3 L of oxygen with. //Severe sepsis present on admission due to tachycardia and tachypnea with lactic acid 2.3 with source of community acquired pneumonia. //Community-acquired pneumoniacontinue with Rocephin and Zithromax, follow-up with blood cultures. Continue oxygen support, patient currently on 3 L of chronic O2 at home. Continue with DuoNeb scheduled. //Atrial fibrillation with rapid ventricular rate on presentationlikely due to sepsis, on Cardizem, give extra dose today, continue with Eliquis. //Mild elevation in troponin I on presentation with no complaints of chest pain repeat levels trended down no further workup at this time //Deconditioning due to sepsis, pneumoniaphysical therapy evaluation, likely will need home health care with physical therapy upon discharge to home Discussed Condition With: Patient, nurse, case finisher. Discharge Planning: Discharge home today with home health.
[2018-07-26 12:55] VITALS: PULSE 102; RESP 16
[2018-07-26 19:41] VITALS: BP 158/70; TEMP 97.9
== END 2018-07-26 16:20 | disposition home health service (06) ==
LOC: NEPC 10:19 → NEDA 13:20 → INTOOBSV 13:20 → N04 18:04
PROVIDERS: ADMIT Internal Medicine; ATTEND Internal Medicine
DX: Z87.891 Personal history of nicotine dependence; E78.5 Hyperlipidemia, unspecified; M47.816 Spondylosis without myelopathy or radiculopathy, lumbar region; R74.8 Abnormal levels of other serum enzymes; A41.9 Sepsis, unspecified organism; E03.9 Hypothyroidism, unspecified; Z90.710 Acquired absence of both cervix and uterus; I48.91 Unspecified atrial fibrillation; M06.9 Rheumatoid arthritis, unspecified; R65.20 Severe sepsis without septic shock; Z80.0 Family history of malignant neoplasm of digestive organs; J18.9 Pneumonia, unspecified organism; R00.0 Tachycardia, unspecified; Z99.81 Dependence on supplemental oxygen; E87.2 Acidosis; Z90.49 Acquired absence of other specified parts of digestive tract; K29.00 Acute gastritis without bleeding; Z79.01 Long term (current) use of anticoagulants; F32.9 Major depressive disorder, single episode, unspecified; K21.9 Gastro-esophageal reflux disease without esophagitis; M47.815 Spondylosis without myelopathy or radiculopathy, thoracolumbar region
CPT/HCPCS: 70450; 71010; 71045; 74176; 80053; 81001; 82550; 82948; 82962; 83520; 83605; 83690; 83735; 83880; 84484; 85025; 85610; 85730; 87040; 87086; 90761; 90765; 93005; 94150; 94640; 94664; 94665; 94667; 94668; 96361; 96365; 96366; 96367; 96375; 96376; 97163; 99285; G0378; G8987; G8988; J0456; J0696; J2543; J7030; J7040; J7050; J7506; J7512; P9612